=== PATIENT | female | born 1945 | race Hispanic/Latino ===

== ENCOUNTER 2017-02-27 06:34 | Day surgery (SDC) | payer MEDICARE ==
[2017-02-21 10:12] VITALS: BMI 33.6
--- NOTE | 2017-02-24 18:31 | HP ---
REASON FOR ADMISSION: Left heart cath, possible angioplasty, abnormal stress test. BRIEF CLINICAL HISTORY: This is a 71-year-old female with a past medical history significant for CVA , diabetes, on insulin; hypertension, hyperlipidemia, a family history of premature coronary artery d isease status post PTCA with drug-eluting stent of the circumflex on 03/31/2014, who had recently a s tress test abnormal, so patient is scheduled for elective cardiac cath and possible angioplasty. PAST MEDICAL HISTORY: Significant for diabetes, hypertension, hyperlipidemia, coronary artery diseas e status post a stent 03/31/2014 in circumflex. ALLERGIES: ALLERGY TO NAPROSYN. CURRENT MEDICATIONS: Atorvastatin 20 mg daily, atenolol 50 mg, aspirin 81 mg, Claritin 1 tablet ester y, lisinopril 10 mg, insulin 20 units daily, Keppra 500 mg daily, Trileptal ____ b.i.d. PREVIOUS CARDIAC WORKUP: As follows: The patient had a cardiac catheterization 03/31/2014 with sten t deployment to the circumflex. At that time, the cardiac catheterization revealed single-vessel cor onary artery disease involving the proximal circumflex 99%, preserved LV function, ejection fraction 60% to 65%. Elevated EDP in the range of 20-25. Successful PTCA with a drug-eluting stent Resolut was done and after that, medical treatment recommended. Aspirin and Plavix was recommended. Mos t recently, patient had a stress test on 02/06/2017 that shows probably abnormal SPECT myocardial per fusion study, reversible distal anteroseptal defect suspicious for ischemia. When compared with ____ from 04/23/2015, this finding is new. The patient had also echocardiography done on 02/08/2015 that s hows normal LV size, normal chamber size, no evidence of ____, ____, ejection fraction of 56%, diasto lic dysfunction, trace mitral regurgitation, trace tricuspid regurgitation. REVIEW OF SYSTEMS: A 14 point review of systems as per HPI. PHYSICAL EXAMINATION: As follows: VITAL SIGNS: Temperature afebrile, heart rate 80, blood pressure 130/80. HEENT: PERRLA, intact. NECK: Supple. No carotid bruits. No thyromegaly. CHEST: Clear to auscultation. HEART: S1, S2 regular. ABDOMEN: Soft. EXTREMITIES: Clubbing and cyanosis negative. Height of the patient is 5 feet 2 inches, weight of the patient is 184 pounds, body mass index 33.7 k g/meter squared. LABORATORY DATA: Pending. IMPRESSION: Diabetes, hypertension, hyperlipidemia, coronary artery disease, status post percutaneou s transluminal coronary angioplasty of circumflex proximal on 03/31/2014. Recent stress test 017 suspicious for ischemia, ejection fraction 58%. Echo shows ejection fraction 56%, normal chamber size, trace mitral regurgitation, trace regurgitation. RECOMMENDATION: We will load with Plavix, aspirin. We will follow the blood workup. Risks, benefit s, alternatives discussed with the patient. The patient agreed. We will proceed for cardiac cathete rization. Further recommendation after cardiac catheterization. Thank you, Dr. Kerr, for providing us the opportunity in taking care of the patient. Chris Luque MD cc:Leroy Burroughs MD; Chris Kerr MD 305 TT: 02/24/2017 18:31:01 sn
[2017-02-27 07:14] LABS: ADD MANUAL DIFF? NO
[2017-02-27 07:23] LABS: BASO # 0.02 K/mm3 (0.0-2.0); BASO % 0.2 % (0.0-3.0); EOS # 0.2 (0.0-0.7); EOS % 2.5 % (1.5-5.0); GRAN # 5.23 (1.4-6.5); GRAN % 56.9 % (50.0-68.0); HEMATOCRIT 36.2 % (36.0-48.0); LYMPH # 3.1 (1.2-3.4); LYMPH % 33.9 % (22.0-35.0); MEAN CELL VOLUME 88.1 fL (80.0-105.0); MEAN CORPUSCULAR HEMOGLOBIN 29.7 pg (25.0-35.0); MEAN CORPUSCULAR HGB CONC 33.7 g/dl (31.0-37.0); MEAN PLATELET VOLUME 9.7 fl (7.0-11.0); MONO # 0.6 (0.1-0.6); MONO % 6.5 % (1.0-6.0); PLATELET COUNT 254 10^3/uL (120.0-450.0); RED CELL DISTRIBUTION WIDTH 12.8 % (11.5-14.5); WHITE BLOOD COUNT 9.2 10^3/ul (4.5-11.0)
[2017-02-27 07:31] LABS: BLOOD UREA NITROGEN 14 mg/dL (7-21); CALCIUM 9.1 mg/dL (8.4-10.5); CARBON DIOXIDE 30 mmol/L (21-33); CHLORIDE 101 mmol/L (98-107); CHOLESTEROL 143 mg/dL (130-200); GFR AFRICAN-AMERICAN > 60; POTASSIUM 4.1 mmol/L (3.6-5.0); SODIUM 138 mmol/L (132-148)
[2017-02-27 07:34] LABS: INR 0.99 (0.93-1.08)
[2017-02-27 07:41] LABS: GLUCOSE,RANDOM 310 mg/dL (70-110)
[2017-02-27] MEDS ORDERED: Lidocaine 2% Inj (20ml) ONE (08:35)
[2017-02-27] MEDS ORDERED: Nitroglycerin 50mg in D5W 50 MG/250 ML BOTTLE IV ONE (08:37)
[2017-02-27] MEDS ORDERED: Midazolam 2 MG/2 ML VIAL ONE (08:47)
[2017-02-27] MEDS ORDERED: Iohexol 350mgl/ml 50 ML ONE (09:25)
[2017-02-27] MEDS ORDERED: Phenylephrine 10 mg/ml Inj ONE (09:25)
[2017-02-27] MEDS ORDERED: Iohexol 350 MG/100 ML VIAL ONE (09:25)
[2017-02-27] MEDS ORDERED: Eptifibatide 20 mg/10mL Inj IVP ONE (09:29)
[2017-02-27] MEDS ORDERED: Sodium Chloride 0.9% 1,000 ML IV SCH (10:15)
[2017-02-27 11:37] VITALS: O2SAT 96
[2017-02-27] MEDS: Insulin Reg-LOW-Coverage SC SCH ×2 (11:57→16:43)
[2017-02-27 12:23] VITALS: RESP 18; TEMP 98.1
[2017-02-27 13:03] LABS: ADD MANUAL DIFF? NO
[2017-02-27 13:11] LABS: BASO # 0.02 K/mm3 (0.0-2.0); BASO % 0.2 % (0.0-3.0); EOS # 0.2 (0.0-0.7); EOS % 1.5 % (1.5-5.0); GRAN % 57.8 % (50.0-68.0); HEMATOCRIT 36.6 % (36.0-48.0); LYMPH # 3.4 (1.2-3.4); LYMPH % 35.4 % (22.0-35.0); MEAN CORPUSCULAR HEMOGLOBIN 29.6 pg (25.0-35.0); MEAN CORPUSCULAR HGB CONC 32.5 g/dl (31.0-37.0); MEAN PLATELET VOLUME 10.1 fl (7.0-11.0); MONO # 0.5 (0.1-0.6); MONO % 5.1 % (1.0-6.0); PLATELET COUNT 250 10^3/uL (120.0-450.0); RED CELL DISTRIBUTION WIDTH 12.7 % (11.5-14.5); WHITE BLOOD COUNT 9.7 10^3/ul (4.5-11.0)
[2017-02-27 13:15] LABS: BLOOD UREA NITROGEN 14 mg/dL (7-21); CALCIUM 8.7 mg/dL (8.4-10.5); CARBON DIOXIDE 29 mmol/L (21-33); CHLORIDE 102 mmol/L (95-110); GFR AFRICAN-AMERICAN > 60; GLUCOSE,RANDOM 280 mg/dL (70-110); SODIUM 135 mmol/L (132-148)
[2017-02-27 13:16] LABS: POTASSIUM 4.7 mmol/L (3.6-5.0)
[2017-02-27 14:30] VITALS: BP 146/76; PULSE 70
[2017-02-27] MEDS ORDERED: Bacitracin 500 Units/gm Oint Foilpak UD ONE (15:13)
--- NOTE | 2017-02-27 15:20 | CARD ---
APPROVED REPORT EKG Measurement Heart [id number] CO [id number] <Conclusion> Normal sinus rhythm with 1st degree AVB Left axis deviation PRWP V 1 - 6
--- NOTE | 2017-02-27 17:57 | CARD ---
APPROVED REPORT Procedure(s) performed: Left Heart Catheterization PTCA with Stenting of Proximal to Mid Circumflex. HISTORY The patient is a 71 year-old female with a history of : most recent EF: 58%. (EF Method: RADIONUCLIDE), previous CVA remote >= 2 weeks, peripheral vascular disease, diabetes mellitus with insulin treatment , previous diagnostic cath, previous PCI (The PCI date was 03/31/2014), hypertension , dyslipidemia , cerebrovascular disease , Had an Abnormal stress test.. INDICATION The indication(s) include : positive stress test. CASE TECHNIQUE The patient was brought electively to the Cardiac Catheterization Laboratory in a fasting state and was prepped and draped in a sterile manner. The left wrist was infiltrated with 2% Lidocaine subcutaneous anesthesia. A 6 Fr Glidesheath (Radial) sheath was inserted into the left radial artery without difficulty. Coronary angiography was performed using coronary diagnostic catheters. The left coronary system was accessed and visualized with a Diagnostic ,5 Fr JL 3.5 catheter. The right coronary system was accessed and visualized with a Diagnostic ,5 Fr JR 4 catheter. The left ventricle was accessed and visualized with a 5 Fr Pigtail 145 (Angled) catheter. Left ventricular/Aortic Valve gradient assessed on pullback. Left ventriculogram was performed in PARK projection. The patient tolerated the procedure well and there were no complications associated with the procedure. Vessel Analysis The patient's coronary anatomy is right dominant. The left main coronary artery is a large size vessel with diffuse calcification noted throughout this vessel and without significant stenosis. The left main bifurcates to the left anterior descending and circumflex. The left anterior descending artery is a medium size vessel with diffuse calcification noted throughout this vessel and without significant stenosis. There is a 30-40% stenosis in the mid segment. The first diagonal branch is a small size vessel with diffuse calcification noted throughout this vessel and without significant stenosis. The circumflex artery is a medium size vessel with diffuse calcification noted throughout this vessel and with significant stenosis. There is a 90% stenosis in the proximal segment. Has stent, proximal end of stent has 90 % stenosis and distal to Stent 80% stenosis The first obtuse marginal branch is a medium size vessel with intimal irregularities and without significant stenosis. The right coronary artery is a large size vessel with intimal irregularities and without significant stenosis. The right posterior descending artery is a medium size vessel with diffuse calcification noted throughout this vessel and without significant stenosis. Left Ventricle The left ventricle is normal in size with normal contractility. There was no cardiomyopathy. The left ventricular ejection fraction is estimated to be 55-60%. The left ventricular end diastolic pressure is 15 mmHg. There was no gradient across the aortic valve upon pullback. PCI Technique Lesion Anticoagulation was achieved with Heparin. Percutaneous coronary intervention was performed on the mid circumflex artery segment. The lesion stenosis prior to intervention was 80% with CLARI 2 flow. A 6 Fr XB 3 Guide Catheter was used to engage the ostium. BALLOON DILATION A Balloon catheter 2.5 x 15 mm Sprinter RX was inserted and inflated up to 8.00atm for 14seconds. STENT DEPLOYMENT A drug-eluting stent 3.0 x 38 mm Resolute ELENA was inserted and inflated up to 10.00atm for 26seconds. POST STENT DEPLOYMENT BALLOON DILATION A Balloon catheter 3.25 x 21 mm Sprinter NC was inserted and inflated up to 10.00atm for 26seconds. COMMENTS Single Long stent 3.0/34 used to cover proximal and Mid Cx. PCI Technique Lesion 2 Percutaneous Coronary Intervention was performed on the proximal circumflex artery segment. The lesion stenosis prior to intervention was 90% with CLARI 2 flow. A 6 Fr XB 3 Guide Catheter was used to engage the ostium. BALLOON DILATION A Balloon catheter 2.5 x 15 mm Sprinter RX was inserted and inflated up to 10.00atm for 32seconds. STENT DEPLOYMENT A drug-eluting stent 3.0 x 38 mm Resolute ELENA was inserted and inflated up to 10.00atm for 32seconds. POST STENT DEPLOYMENT BALLOON DILATION A Balloon catheter 3.25 x 21 mm Sprinter NC was inserted and inflated up to 14.00atm for 20seconds. Final angiography reveals 0 % stenosis with CLARI 3 flow. Conclusion Silgle vesel CAD involving Proximal and Mid CX (cy stent InStent Restenosis) Silgle Long Stent 3.0/34 Resolute Elena used to cover proximal and Mid Cx. Preserved Lv FX. Recommendations Cardiac Rehabilitation ReferralDaily ASA with Plavix for at least one year Aggressive Medical TherapyCardiac Risk Reduction Program Weight Loss Reduction Program CC; Drs. Burroughs/ Cirilo.
== END 2017-02-27 17:12 | disposition home or self-care (01) ==
LOC: CATH 06:34 → 2RSO 10:14 → CATH 17:12
PROVIDERS: ATTEND Internal Medicine Cardiovascular Disease
DX: I25.10 Atherosclerotic heart disease of native coronary artery without angina pectoris (principal); R94.39 Abnormal result of other cardiovascular function study; Z86.73 Personal history of transient ischemic attack (TIA), and cerebral infarction without residual deficits; E11.9 Type 2 diabetes mellitus without complications; Z79.4 Long term (current) use of insulin; I10 Essential (primary) hypertension; E78.5 Hyperlipidemia, unspecified; Z82.49 Family history of ischemic heart disease and other diseases of the circulatory system; Z95.5 Presence of coronary angioplasty implant and graft; I73.9 Peripheral vascular disease, unspecified; Z79.82 Long term (current) use of aspirin; Z88.6 Allergy status to analgesic agent; I08.1 Rheumatic disorders of both mitral and tricuspid valves; T82.858A Stenosis of other vascular prosthetic devices, implants and grafts, initial encounter
CPT/HCPCS: 36415; 80048; 80061; 82948; 85025; 85175; 85610; 85730; 86850; 86900; 93005; 93458; 99152; 99153; C1725; C1769 ×2; C1874; C1887 ×3; C9600; J1327; J1644 ×2; J2250; J3010; J7040 ×2; Q9967 ×2

== ENCOUNTER 2018-02-12 11:03 | Emergency (ER) | payer MEDICARE ==
[2018-02-12 11:13] VITALS: BMI 35.9
--- NOTE | 2018-02-12 11:31 | ED PDOC ---
Arrival/HPI - General Chief Complaint: Trauma Time Seen by Provider: 02/12/18 11:29 Historian: Patient - History of Present Illness Narrative History of Present Illness (Text): 02/12/18 11:30 A 72 year old female, whose past medical history includes hypertension, diabetes , hyperlipidemia, presents to the emergency department via EMS s/p slip and fall while taking a shower today. The patient states that she did not syncopize pre/post fall. She notes that she is right hand dominant, but landed on her left side and is currently complaining of mild left elbow and hip pain. She ranks the pain a 1-2 out of 10. The patient notes that she was able to ambulate after the fall and slowly get out of the bathroom and ask for help upon which the ambulance arrived and brought her into the emergency department. She denies fevers, chills, LOC, seizure, headache, dizziness, palpitations, chest pain, shortness of breath, dyspnea on exertion, cough, abdominal pain, nausea, vomiting, diarrhea, back pain, neck pain, urinary/bowel changes/incontinence, numbness/tingling,or any other complaint. PMD: Dr. Burroughs Bell Captain: Dr. Luque Driver Helper: ADELE Webber Time/Duration: Prior to Arrival Symptom Onset: Sudden Symptom Course: Unchanged Activities at Onset: Rest, Light Context: Home Past Medical History - Provider Review Nursing Documentation Reviewed: Yes - Travel History Have you recently traveled outside [place] w/in the past 3 mons?: No - Past History Past History: No Previous - Infectious Disease Hx of Infectious Diseases: None - Tetanus Immunization Tetanus Immunization: Unknown - Reproductive Menopause: Yes Currently : No - Cardiac Hx Pacemaker: No - Neurological Hx Paralysis: No - Endocrine/Metabolic Hx Diabetes Mellitus Type 1: Yes - Hematological/Oncological Hx Blood Transfusions: No - Musculoskeletal/Rheumatological Hx Musculoskeletal Disorders: Yes - Gastrointestinal Hx Gastrointestinal Disorders: No - Genitourinary/Gynecological Hx Genitourinary Disorders: No Hx Reproductive Disorders: No - Psychiatric Hx Emotional Abuse: No Hx Physical Abuse: No Hx Substance Use: No - Surgical History Hx Coronary Stent: Yes (03/2014) Hx Hysterectomy: Yes - Anesthesia Hx Anesthesia Reactions: No Hx Malignant Hyperthermia: No - Suicidal Assessment Feels Threatened In Home Enviroment: No Family/Social History - Physician Review Nursing Documentation Reviewed: Yes Family/Social History: No Known Family HX Smoking Status: Never Smoked Hx Alcohol Use: No Hx Substance Use: No Hx Substance Use Treatment: No Allergies/Home Meds Allergies/Adverse Reactions: Allergies naproxen [From Naprosyn] Allergy (Severe, Verified 02/12/18 11:15) RASH divalproex sodium [From Depakote] Adverse Reaction (Severe, Verified 02/12/18 11 :15) BACTERIAL INFECTION Home Medications: Home Meds Medication Instructions Recorded Confirmed Atenolol 50 mg PO DAILY 02/04/13 02/27/17 Insulin Detemir [Levemir] 50 unit SC HS 02/04/13 02/27/17 Atorvastatin [Lipitor] 20 mg PO DAILY 03/17/14 02/27/17 Aspirin [Lo-Dose Aspirin EC] 81 mg PO DAILY 02/06/17 02/27/17 Cholecalciferol (Vitamin D3) 1,000 unit PO BID 02/06/17 02/27/17 [Vitamin D3] Insulin Lispro Mix 75/25 [HumaLog 20 units SC ACBD 02/06/17 02/27/17 MIX 75/25] Lisinopril [Zestril] 10 mg PO DAILY 02/06/17 02/27/17 Loratadine/Pseudoephedrine 1 tab PO DAILY 02/06/17 02/27/17 [Claritin-D 24 Hour Tablet] Multivit-Min/FA/Lycopen/Lutein 1 tab PO DAILY 02/06/17 02/27/17 [Centrum Silver Tablet] OXcarbazepine [Trileptal] 900 mg PO BID 02/06/17 02/27/17 Huntington-3 Fatty Acids [Fish Oil] 300 mg PO BID 02/06/17 02/27/17 levETIRAcetam [Keppra] 500 mg PO BID 02/06/17 02/27/17 Review of Systems - Physician Review All systems were reviewed & negative as marked: Yes - Review of Systems Constitutional: absent: Fevers, Night Sweats Eyes: Normal ENT: Normal Respiratory: absent: SOB, Cough Cardiovascular: absent: Chest Pain, SMILEY Gastrointestinal: absent: Abdominal Pain, Stool Changes, Diarrhea, Nausea, Vomiting Genitourinary Female: Normal. absent: Urine Output Changes Musculoskeletal: Other (Left elbow and hip pain. ). absent: Back Pain, Neck Pain Skin: absent: Rash Neurological: absent: Headache, Dizziness Endocrine: Normal Hemo/Lymphatic: Normal Psychiatric: Normal Physical Exam - Physical Exam Narrative Physical Exam (Text): 02/12/18 11:32 General: alert/awake, GCS = 15, oriented x 3, resting in bed, uncomfortable, cooperative, interactive; NAD Head: NC/AT; mild bi-temporal wasting EYE: PERRLA, EOMI, sclera anicteric, no nystagmus, no photophobia; wearing eye glasses; visual field intact b/l Facial: WNL Oral: uvula/tongue are midline, no exudate/lesions, no drooling/stridor, no dysphonia; intact dentitions NECK: intact ROM, no midline tenderness, no nuchal rigidity, no meningeal signs ; no step off; no step off Chest: CTA b/l, no w/r/r; no tachypenia, no accessory muscle use noted Cardiac: +S1, +S2, no m/r/r, no tachycardia Abdominal: +BS, soft/nd/nt, well nourished patient; no masses/rebound/guarding/ rigidity; no alvarez's sign, no mcburney's point tenderness Extremities: intact ROM, strength 5/5 grossly intact in all limbs, neurovasc intact b/l; + ambulatory; reflex +2/2; noted mild tenderness over left posterior aspect of the elbow, and left pelvic region mild tenderness, no crepitus/gross deformities noted BACK: no step off, no midline tenderness, NO crepitus, no gross deformities noted; Intact ROM SKIN: cap refill < 1 sec, no ulcerations, no petechiae, no rashes NEURO: CNII-XII WNL, no facial asymmetries, no slurr speech, oriented x 3 NIH stroke scale ~ 0 Psych: normal insight, normal affect; follows command with ease Vital Signs Reviewed: Yes Vital Signs Temp Pulse Resp BP Pulse Ox 02/12/18 11:11 98.1 F 88 18 153/87 H 98 Temperature: Afebrile Blood Pressure: Hypertensive Pulse: Regular Respiratory Rate: Normal Appearance: Positive for: Well-Appearing, Non-Toxic, Uncomfortable Pain Distress: None Mental Status: Positive for: Alert and Oriented X 3 - Systems Exam Head: Present: Atraumatic, Normocephalic Medical Decision Making ED Course and Treatment: 02/12/18 11:43 Impression: A 72 year old female presents to the emergency department complaining of left elbow and hip pain s/p slip and fall. i have consider all the differential diagnosis regarding pt's chief medical complaints/clinical findings, including but are not limited to: r/o fx Plan: -- EKG -- Chest/ Left Hip / Left Elbow X-ray -- Labs -- Reassess and disposition Progress Notes: pt is currently comfortable, awaiting diagnostic results 02/12/18 13:30 pt is made aware of her medical results due to pt's low h/h, without cause, i recommend that patient should stay in the hospital 02/12/18 14:38: Case discussed in detail with Dr. Burroughs. Made aware and agrees with emergency department recommendation for patient to remain in hospital but is made aware that patient may leave against medical advice. 02/12/18 15:25 discussed with patient at length regarding admission to the hospital, pt however refused; pt states she would rather f/u with her PCP Leaving Against Medical Advice (AMA): The patient is choosing to leave against medical advice. I have personally explained to the patient that choosing to do so may result in permanent bodily harm or . I have discussed at great length that without further evaluation and monitoring there may be unforeseen circumstances and/or deterioration causing permanent bodily harm or as a result of their choice. The patient is alert, oriented, and shows the mental capacity to make clear decisions regarding the patients health care at this time. The patient continues to wish to leave against medical advice. In light of the patients decision to leave against medical advice, follow-up has been arranged and the patient is aware of the importance to following up as instructed. The patient has been advised that they should return to the emergency room immediately if they change their mind at any time, or if their condition begins to change or worsen in any way. pt is made aware of her medical results pt will f/u with her PCP immediately pt is leaving the hospital currently against my advice Re-evaluation Time: 15:00 Reassessment Condition: Improved - Lab Interpretations Lab Results: 02/12/18 12:15 02/12/18 12:15 Lab Results 02/12/18 12:15: Sodium 136, Potassium 4.8, Chloride 99, Carbon Dioxide 26, Anion Gap 16, BUN 12, Creatinine 0.5 L, Est GFR ( Amer) > 60, Est GFR ( Non-Af Amer) > 60, Random Glucose 185 H, Calcium 8.7, Total Bilirubin 0.1 L, AST 30, ALT 32, Alkaline Phosphatase 126, Total Protein 7.2, Albumin 3.7, Globulin 3.5, Albumin/Globulin Ratio 1.1 02/12/18 12:15: WBC 11.1 H D, RBC 3.73, Hgb 8.6 L D, Hct 28.5 L, MCV 76.4 L D, MCH 23.1 L, MCHC 30.2 L, RDW 15.2 H, Plt Count 374, MPV 9.0, Gran % 68.9 H, Lymph % (Auto) 24.6, Shannon % (Auto) 5.1, Eos % (Auto) 1.3 L, Baso % (Auto) 0.1, Gran # 7.63 H, Lymph # (Auto) 2.7, Shannon # (Auto) 0.6, Eos # (Auto) 0.1, Baso # ( Auto) 0.01 I have reviewed the lab results: Yes Interpretation: Abnormal lab values (low h/h) - RAD Interpretation Narrative RAD Interpretations (Text): 02/12/18 13:44 PROCEDURE: Radiographs of the left elbow. Dictator : Faisal Santillan MD Report Date : 02/12/2018 13:36:27 IMPRESSION: Unremarkable radiographs of the left elbow. PROCEDURE: Left Hip and pelvis X-ray Radiographs. Dictator : Faisal Santillan MD Report Date : 02/12/2018 13:37:41 IMPRESSION: Normal left hip radiographs. Chest X-ray Dictator : Faisal Santillan MD Report Date : 02/12/2018 13:35:21 IMPRESSION: No active disease. 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 I have reviewed the chart and agree that the record accurately reflects my personal performance of the history, physical exam, medical decision making, and the department course for this patient. I have also personally directed, reviewed, and agree with the discharge instructions and disposition. Disposition/Present on Arrival - Present on Arrival Any Indicators Present on Arrival: No History of DVT/PE: No History of Uncontrolled Diabetes: No Urinary Catheter: No History of Decub. Ulcer: No History Surgical Site Infection Following: None - Disposition Have Diagnosis and Disposition been Completed?: Yes Diagnosis: Fall, Anemia, Contusion, hip, Elbow contusion Disposition: AGAINST MEDICAL ADVICE Disposition Time: 15:04 Patient Problems: Current Active Problems Problem Status Onset Fall Acute Anemia Acute Condition: STABLE Discharge Instructions (ExitCare): Preventing Falls in the Older Adult, Contusion (DC) Print Language: BARBADIAN Additional Instructions: you are leaving against medical advice potential life-threatening illness remains and pt can lose limb/or worse case, can you are to see your doctor as soon as possible if you change your mind, you are encouraged to return to ED immediately for further care/management Referrals: Leroy Burroughs MD [Primary Care Provider] - Follow up with primary Forms: [facility] (Guatemalan)
[2018-02-12 12:52] LABS: RBC 3.73 10^6/uL (3.5-6.1); WHITE BLOOD COUNT 11.1 10^3/ul (4.5-11.0)
[2018-02-12 12:53] LABS: HEMOGLOBIN 8.6 g/dL (12.0-16.0); MEAN CELL VOLUME 76.4 fl (80.0-105.0)
[2018-02-12 12:54] LABS: BASO % 0.1 % (0.0-3.0); EOS % 1.3 % (1.5-5.0); GRAN # 7.63 (1.4-6.5); GRAN % 68.9 % (50.0-68.0); LYMPH % 24.6 % (22.0-35.0); MEAN CORPUSCULAR HEMOGLOBIN 23.1 pg (25.0-35.0); MEAN CORPUSCULAR HGB CONC 30.2 g/dl (31.0-37.0); MONO % 5.1 % (1.0-6.0); RED CELL DISTRIBUTION WIDTH 15.2 % (11.5-14.5)
[2018-02-12 12:55] LABS: BASO # 0.01 K/mm3 (0.0-2.0); EOS # 0.1 (0.0-0.7); LYMPH # 2.7 (1.2-3.4); MONO # 0.6 (0.1-0.6)
--- NOTE | 2018-02-12 13:36 | RAD ---
HISTORY: fell in bathtube COMPARISON: 03/17/2014 TECHNIQUE: Chest PA and lateral FINDINGS: LUNGS: No active pulmonary disease. PLEURA: No significant pleural effusion identified. No pneumothorax apparent. CARDIOVASCULAR: Normal. OSSEOUS STRUCTURES: No significant abnormalities. VISUALIZED UPPER ABDOMEN: Normal. OTHER FINDINGS: None. IMPRESSION: No active disease.
--- NOTE | 2018-02-12 13:37 | RAD ---
PROCEDURE: Radiographs of the left elbow. HISTORY: fell COMPARISON: No prior. FINDINGS: BONES: Normal. No fracture. JOINTS: Normal. No osteoarthritis. SOFT TISSUES: Normal. JOINT EFFUSION: None. OTHER FINDINGS: None IMPRESSION: Unremarkable radiographs of the left elbow.
--- NOTE | 2018-02-12 13:39 | RAD ---
PROCEDURE: Left Hip and pelvis X-ray Radiographs. HISTORY: fell in bathtub, r/o fx COMPARISON: None. FINDINGS: BONES: Normal. No fracture. JOINTS: Normal. SOFT TISSUES: Normal. OTHER FINDINGS: None. IMPRESSION: Normal left hip radiographs.
[2018-02-12 15:17] VITALS: TEMP 98
[2018-02-12 15:18] VITALS: BP 138/83; PULSE 85; RESP 18; O2SAT 99
[2018-02-12 16:28] LABS: ALB/GLOB RATIO 1.1 (1.1-1.8); ALBUMIN 3.7 g/dL (3.0-4.8); ALT/SGPT 32 U/L (7-56); AST/SGOT 30 U/L (14-36); BLOOD UREA NITROGEN 12 mg/dL (7-21); CALCIUM 8.7 mg/dL (8.4-10.5); GFR AFRICAN-AMERICAN > 60; GFR NON-AFRICAN AMERICAN > 60
--- NOTE | 2018-02-12 18:22 | CARD ---
APPROVED REPORT EKG Measurement Heart [id number] MS [id number] <Conclusion> Sinus rhythm with 1st degree AV block Left axis deviation Abnormal ECG
== END 2018-02-12 15:19 | disposition left against medical advice (07) ==
LOC: ED 11:03
DX: S50.02XA Contusion of left elbow, initial encounter (principal); S70.02XA Contusion of left hip, initial encounter; W18.2XXA Fall in (into) shower or empty bathtub, initial encounter; Y93.E1 Activity, personal bathing and showering; Y92.002 Bathroom of unspecified non-institutional (private) residence as the place of occurrence of the external cause; D64.9 Anemia, unspecified; I10 Essential (primary) hypertension; E78.5 Hyperlipidemia, unspecified

== ENCOUNTER 2018-03-13 13:52 | Observation (INO) | payer MEDICARE ==
[2018-03-13 14:05] VITALS: O2SAT 98
--- NOTE | 2018-03-13 14:31 | RAD ---
HISTORY: rout med exam COMPARISON: 02/12/2018 FINDINGS: LUNGS: No active pulmonary disease. PLEURA: No significant pleural effusion identified, no pneumothorax apparent. CARDIOVASCULAR: Normal. OSSEOUS STRUCTURES: No significant abnormalities. VISUALIZED UPPER ABDOMEN: Normal. OTHER FINDINGS: None. IMPRESSION: No active disease.
[2018-03-13] MEDS ORDERED: Lactated Ringer's 1,000 ML IV SCH (15:00)
--- NOTE | 2018-03-13 15:23 | ED PDOC ---
Arrival/HPI - General Chief Complaint: Dizziness/Lightheaded Time Seen by Provider: 03/13/18 14:03 Historian: Patient - History of Present Illness Narrative History of Present Illness (Text): 03/13/18 15:07 A 72 year old female, whose past medical history includes diabetes, hypertension , hyperlipidemia, anemia on iron transfusions (last session received yesterday) , and peripheral vertigo, presents to the emergency department complaining of dizziness for 2 days. Patient characterizes symptom as disequilibrium and vertigo. Also, patient mentions having recently fallen in the shower within the past 24 hours, however denies any head trauma, and landed on left knee. Patient denies any fever, chills, nausea, vomiting, diarrhea, infected foci, chest pain , palpitations, dyspnea on exertion, or any other complaints at this time. No PMD Time/Duration: Other (2 days) Past Medical History - Provider Review Nursing Documentation Reviewed: Yes - Past History Past History: No Previous - Infectious Disease Hx of Infectious Diseases: None - Tetanus Immunization Tetanus Immunization: Unknown - Cardiac Hx Cardiac Disorders: Yes Hx Pacemaker: No - Pulmonary Hx Respiratory Disorders: No - Neurological Hx Neurological Disorder: Yes Hx Paralysis: No Hx Seizures: Yes Hx Vertigo: Yes - HEENT Hx HEENT Disorder: No - Renal Hx Renal Disorder: No - Endocrine/Metabolic Hx Endocrine Disorders: Yes Hx Diabetes Mellitus Type 1: Yes - Hematological/Oncological Hx Blood Disorders: No Hx Blood Transfusions: No - Integumentary Hx Dermatological Disorder: No - Musculoskeletal/Rheumatological Hx Musculoskeletal Disorders: Yes - Gastrointestinal Hx Gastrointestinal Disorders: No - Genitourinary/Gynecological Hx Genitourinary Disorders: No Hx Reproductive Disorders: No - Psychiatric Hx Emotional Abuse: No Hx Physical Abuse: No Hx Substance Use: No - Surgical History Hx Cardiac Catheterization: Yes Hx Coronary Stent: Yes (03/2014) Hx Hysterectomy: Yes (partial) Hx Tubal Ligation: Yes - Anesthesia Hx Anesthesia Reactions: No Hx Malignant Hyperthermia: No - Suicidal Assessment Feels Threatened In Home Enviroment: No Family/Social History - Physician Review Nursing Documentation Reviewed: Yes Family/Social History: No Known Family HX Smoking Status: Never Smoked Hx Alcohol Use: No Hx Substance Use: No Hx Substance Use Treatment: No Allergies/Home Meds Allergies/Adverse Reactions: Allergies naproxen [From Naprosyn] Allergy (Severe, Verified 03/13/18 14:18) RASH divalproex sodium [From Depakote] Adverse Reaction (Severe, Verified 03/13/18 14 :18) BACTERIAL INFECTION Home Medications: Home Meds Medication Instructions Recorded Confirmed Atenolol 50 mg PO DAILY 02/04/13 03/13/18 Insulin Detemir [Levemir] 50 unit SC HS 02/04/13 03/13/18 Atorvastatin [Lipitor] 20 mg PO DAILY 03/17/14 03/13/18 Aspirin [Lo-Dose Aspirin EC] 81 mg PO DAILY 02/06/17 03/13/18 Cholecalciferol (Vitamin D3) 1,000 unit PO BID 02/06/17 03/13/18 [Vitamin D3] Insulin Lispro Mix 75/25 [HumaLog 20 units SC ACBD 02/06/17 03/13/18 MIX 75/25] Lisinopril [Zestril] 10 mg PO DAILY 02/06/17 03/13/18 Loratadine/Pseudoephedrine 1 tab PO DAILY 02/06/17 03/13/18 [Claritin-D 24 Hour Tablet] Multivit-Min/FA/Lycopen/Lutein 1 tab PO DAILY 02/06/17 03/13/18 [Centrum Silver Tablet] OXcarbazepine [Trileptal] 900 mg PO BID 02/06/17 03/13/18 Westwood-3 Fatty Acids [Fish Oil] 300 mg PO BID 02/06/17 03/13/18 levETIRAcetam [Keppra] 500 mg PO BID 02/06/17 03/13/18 Review of Systems - Physician Review All systems were reviewed & negative as marked: Yes - Review of Systems Constitutional: absent: Fevers, Night Sweats Cardiovascular: absent: Chest Pain, Palpitations Gastrointestinal: absent: Stool Changes (no infected foci), Diarrhea, Nausea, Vomiting Neurological: Dizziness Physical Exam Vital Signs Reviewed: Yes Vital Signs Temp Pulse Resp BP Pulse Ox 03/13/18 18:56 85 18 163/86 H 98 03/13/18 15:40 79 18 138/74 98 03/13/18 14:02 98.2 F 81 18 140/77 98 Temperature: Afebrile Blood Pressure: Normal Pulse: Regular Respiratory Rate: Normal Appearance: Positive for: Well-Appearing, Non-Toxic, Comfortable Pain Distress: None Mental Status: Positive for: Alert and Oriented X 3 - Systems Exam Head: Present: Atraumatic, Normocephalic Pupils: Present: PERRL Extroacular Muscles: Present: EOMI Conjunctiva: Present: Normal Mouth: Present: Moist Mucous Membranes Neck: Present: Normal Range of Motion Respiratory/Chest: Present: Clear to Auscultation, Good Air Exchange. No: Respiratory Distress, Accessory Muscle Use Cardiovascular: Present: Regular Rate and Rhythm, Normal S1, S2. No: Murmurs Abdomen: No: Tenderness, Distention, Peritoneal Signs Back: Present: Normal Inspection Upper Extremity: Present: Normal Inspection. No: Cyanosis, Edema Lower Extremity: Present: Tenderness (anterior tenderness to left knee) Neurological: Present: GCS=15, CN II-XII Intact, Speech Normal Skin: Present: Warm, Dry, Normal Color. No: Rashes Psychiatric: Present: Alert, Oriented x 3, Normal Insight, Normal Concentration Medical Decision Making ED Course and Treatment: 03/13/18 15:10 Impression: 72 year old female with dizziness. Physical exam shows anterior left knee tenderness (due to fall within the past 24 hrs); otherwise normal examination. Plan: -- EKG -- Left Knee X-Ray -- Head CT -- Labs -- Urinalysis -- Lactated Ringer's 1000 ml -- Antivert -- Urine Culture -- Reassess and disposition Progress Notes: EKG: Ordered, reviewed, and independently interpreted the EKG. Rate : 80 BPM Rhythm : NSR Interpretation : 1st degree AB block, no ischemic ST- and T- changes. Comparison : No previous EKG for comparison. - Lab Interpretations Lab Results: 03/13/18 16:05 03/13/18 16:05 Lab Results 03/13/18 17:44: Urine Color Yellow, Urine Appearance Clear, Urine pH 7.5, Ur Specific [place] 1.010, Urine Protein Negative, Urine Glucose (UA) Negative, Urine Ketones Negative, Urine Blood Negative, Urine Nitrate Negative, Urine Bilirubin Negative, Urine Urobilinogen 0.2, Ur Leukocyte Esterase Negative 03/13/18 16:05: PT 11.9, INR 1.04, APTT 31.1 03/13/18 16:05: Sodium 129 L, Potassium 4.7, Chloride 93 L, Carbon Dioxide 28, Anion Gap 13, BUN 10, Creatinine 0.4 L, Est GFR ( Amer) > 60, Est GFR ( Non-Af Amer) > 60, Random Glucose 99, Calcium 9.2, Magnesium 2.0, Total Bilirubin 0.5, AST 52 H D, ALT 35, Alkaline Phosphatase 110, Lactate Dehydrogenase 526, Total Creatine Kinase 22 L, Troponin I < 0.01, NT-Pro-B Natriuret Pep 25.9, Total Protein 8.1, Albumin 4.1, Globulin 4.0, Albumin/ Globulin Ratio 1.0 L 03/13/18 16:05: WBC 11.7 H, RBC 4.12, Hgb 9.6 L, Hct 30.4 L, MCV 73.8 L, MCH 23.3 L, MCHC 31.6, RDW 16.6 H, Plt Count 475 H, MPV 8.6, Gran % 64.7, Lymph % ( Auto) 26.4, Randolph % (Auto) 6.5 H, Eos % (Auto) 2.2, Baso % (Auto) 0.2, Gran # 7.53 H, Lymph # (Auto) 3.1, Randolph # (Auto) 0.8 H, Eos # (Auto) 0.3, Baso # (Auto ) 0.02 - RAD Interpretation Radiology Orders: 03/13/18 14:05 CHEST PORTABLE [RAD] Stat 03/13/18 15:10 HEAD W/O CONTRAST [CT] Stat 03/13/18 15:11 KNEE LEFT 2 VIEWS (AP & LAT) [RAD] Stat - Medication Orders Current Medication Orders: Aspirin (Ecotrin) 81 mg PO DAILY [facility] Atenolol (Tenormin) 50 mg PO DAILY [facility] Atorvastatin Calcium (Lipitor) 20 mg PO DAILY [facility] Clopidogrel Bisulfate (Plavix) 75 mg PO DAILY [facility] Insulin Human Lispro (Humalog Low) 0 units SC ACHS [facility] PRN Reason: Protocol Levetiracetam (Keppra) 500 mg PO BID [facility] Lisinopril (Zestril) 10 mg PO DAILY [facility] Meclizine HCl (Antivert) 25 mg PO Q8H PRN PRN Reason: Dizziness Non-Formulary Medication (Cholecalciferol (Vitamin D3) [Vitamin D3]) 1,000 unit PO BID [facility] Non-Formulary Medication (Multivit-Min/Fa/Lycopen/Lutein [Centrum Silver Tablet] ) 1 tab PO DAILY [facility] Non-Formulary Medication (Westwood-3 Fatty Acids [Fish Oil]) 300 mg PO BID [facility] Non-Formulary Medication (Oxcarbazepine [Trileptal]) 900 mg PO BID [facility] Discontinued Medications Lactated Ringer's (Lactated Ringer's) 1,000 mls @ 999 mls/hr IV .Q1H1M [facility] Stop: 03/13/18 16:00 Last Admin: 03/13/18 15:42 Dose: 999 mls/hr eMAR Start Stop Document 03/13/18 15:42 LA (Rec: 03/13/18 15:42 LA [id number]) Intravenous Solution Start Date 03/13/18 Start Time 15:42 End Date 03/13/18 End time 16:43 Total Infusion Time 61 Meclizine HCl (Antivert) 50 mg PO STAT STA Stop: 03/13/18 14:53 Last Admin: 03/13/18 15:23 Dose: 50 mg - Scribe Statement The provider has reviewed the documentation as recorded by the Ashley Burks Provider Scribe Attestation: All medical record entries made by the Ashley were at my direction and personally dictated by me. I have reviewed the chart and agree that the record accurately reflects my personal performance of the history, physical exam, medical decision making, and the department course for this patient. I have also personally directed, reviewed, and agree with the discharge instructions and disposition. Disposition/Present on Arrival - Present on Arrival Any Indicators Present on Arrival: Yes History of DVT/PE: No History of Uncontrolled Diabetes: Yes Urinary Catheter: No History of Decub. Ulcer: No History Surgical Site Infection Following: None - Disposition Have Diagnosis and Disposition been Completed?: Yes Diagnosis: Vertigo, Dizziness Disposition: HOSPITALIZED Disposition Time: 19:00 Patient Plan: Admission, Discharge Condition: FAIR
[2018-03-13 16:09] LABS: BASO # 0.02 K/mm3 (0.0-2.0); BASO % 0.2 % (0.0-3.0); EOS # 0.3 (0.0-0.7); EOS % 2.2 % (1.5-5.0); GRAN # 7.53 (1.4-6.5); GRAN % 64.7 % (50.0-68.0); HEMOGLOBIN 9.6 g/dL (12.0-16.0); LYMPH # 3.1 (1.2-3.4); LYMPH % 26.4 % (22.0-35.0); MEAN CELL VOLUME 73.8 fl (80.0-105.0); MEAN CORPUSCULAR HEMOGLOBIN 23.3 pg (25.0-35.0); MEAN CORPUSCULAR HGB CONC 31.6 g/dl (31.0-37.0); MEAN PLATELET VOLUME 8.6 fl (7.0-11.0); MONO # 0.8 (0.1-0.6); MONO % 6.5 % (1.0-6.0); RBC 4.12 10^6/uL (3.5-6.1); RED CELL DISTRIBUTION WIDTH 16.6 % (11.5-14.5); WHITE BLOOD COUNT 11.7 10^3/ul (4.5-11.0)
[2018-03-13 16:27] LABS: ALBUMIN 4.1 g/dL (3.0-4.8); ALT/SGPT 35 U/L (7-56); AST/SGOT 52 U/L (14-36); BLOOD UREA NITROGEN 10 mg/dL (7-21); CALCIUM 9.2 mg/dL (8.4-10.5); GFR AFRICAN-AMERICAN > 60; GFR NON-AFRICAN AMERICAN > 60
[2018-03-13 16:31] LABS: B-TYPE NATRIURETIC PEPTIDE 25.9 pg/mL (0-450); TROPONIN I < 0.01 ng/mL
[2018-03-13 16:38] LABS: INR 1.04 (0.93-1.08); PARTIAL THROMBOPLASTIN TIME 31.1 Seconds (25.1-36.5); PROTHROMBIN TIME 11.9 SECONDS (9.4-12.5)
--- NOTE | 2018-03-13 17:08 | CT ---
PROCEDURE: CT HEAD WITHOUT CONTRAST. HISTORY: dizziness COMPARISON: 02/04/2013 TECHNIQUE: Axial computed tomography images were obtained through the head/brain without intravenous contrast. Coronal and sagittal reconstructed images. Radiation dose: Total exam DLP = 855.03 mGy-cm. This CT exam was performed using one or more of the following dose reduction techniques: Automated exposure control, adjustment of the mA and/or kV according to patient size, and/or use of iterative reconstruction technique. FINDINGS: HEMORRHAGE: No intracranial hemorrhage. BRAIN: No mass effect or edema. Cortical atrophy, periventricular small vessel disease. VENTRICLES: Unremarkable. No hydrocephalus. CALVARIUM: Unremarkable. PARANASAL SINUSES: Chronic sinusitis affecting left maxillary sinus, ethmoid and sphenoid air cells. Clear frontal sinuses. MASTOID AIR CELLS: Unremarkable as visualized. No inflammatory changes. OTHER FINDINGS: None. IMPRESSION: No acute intracranial abnormalities. No significant findings to account for the clinical presentation. No significant interval change compared to the prior examination(s).
--- NOTE | 2018-03-13 17:45 | RAD ---
PROCEDURE: Left Knee Radiographs. HISTORY: Left knee pain without history of recent trauma. COMPARISON: None. FINDINGS: BONES: Normal. No fracture. JOINTS: Patellofemoral degenerative change. JOINT EFFUSION: None. OTHER FINDINGS: None. IMPRESSION: No acute findings related to/accounting for the clinical presentation.
[2018-03-13 17:56] LABS: PH,URINE 7.5 (4.7-8.0); URINE BILIRUBIN NEGATIVE (NEGATIVE); URINE BLOOD NEGATIVE (NEGATIVE); URINE GLUCOSE (UA) NEGATIVE (NEGATIVE); URINE LEUKOCYTE ESTERASE NEGATIVE Leu/uL (NEGATIVE); URINE PROTEIN NEGATIVE mg/dL (<30 mg/dL); URINE UROBILINOGEN 0.2 E.U./dL (<1 E.U./dL)
[2018-03-13 17:57] LABS: URINE APPEARANCE CLEAR (CLEAR); URINE COLOR YELLOW (YELLOW)
--- NOTE | 2018-03-13 19:42 | CP.PCM.HP ---
<Jenelle Molina - Last Filed: 03/13/18 20:06> History of Present Illness - History of Present Illness History of Present Illness: 72yo female PMHx HTN, DM2, CAD s/p 2 stents, HLD, CHERRY, seizure disorder presents to the ER with 2 day history of dizziness. Patient reports the day before she felt dizzy and that the room was spinning for 1 hour. She reported the symptoms resolved by themselves and that she did not take anything for them to dalila. On the day of admission however she reported she had another episode of dizziness that was worse and lasted for > 1 hour which is why she decided to come in. She denied any syncope, fall, seizures, trauma to her head, or LOC. Patient reported she felt off balance again and unsteady on her feet. She reported that she used to take meclizine years ago for similar symptoms however had not had any episodes of dizziness for a while. On complete ROS patient denied any headache, fever, chills, chest pain, palpitations, SOB, cough, abd pain, nausea, vomiting, bowel/bladder complaints, swelling in her legs b/l, focal weakness, numbness/tingling/paresthesias in her extremities, loss of appetite, and changes in weight. She did admit to some knee pain after a fall in the shower. Of note patient has recently started seeing Dr. Brock for CHERRY and had second cycle of IV iron infusion on the day of admission [and the first cycle the week prior] PMHx: TN, DM2, CAD s/p 2 stents, HLD, CHERRY, seizure disorder dx 41yo PSurgHx: cardiac stents (one stent 2016, one stent 2014), tubal ligation, partial hysterectomy Meds: pls see EMR- patient reports compliance ALL: Naproxen and divalproex sodium FamHx: no hx of CVA/IN, Mother with ovarian ca, Father with CHF and NonHodgking' s lymphoma SocHx: denies tobacco, EToH, drug use. Ambulates with a walker. 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 Burroughs- last seen 2 weeks ago for knee pain. Next appointment was Neurologist: Dr. Toby Kirby Zigzag Machine Operator: Dr. Cirilo Lemon: Dr. Brock GI: Dr. Isaac Present on Admission - Present on Admission Any Indicators Present on Admission: No Review of Systems - Review of Systems All systems: reviewed and no additional remarkable complaints except Review of Systems: as per HPI Past Patient History - Infectious Disease Hx of Infectious Diseases: None - Tetanus Immunizations Tetanus Immunization: Unknown - Past Social History Smoking Status: Never Smoked - CARDIAC Hx Cardiac Disorders: Yes Hx Pacemaker: No - PULMONARY Hx Respiratory Disorders: No - NEUROLOGICAL Hx Neurological Disorder: Yes Hx Paralysis: No Hx Seizures: Yes Hx Vertigo: Yes - HEENT Hx HEENT Problems: No - RENAL Hx Chronic Kidney Disease: No - ENDOCRINE/METABOLIC Hx Endocrine Disorders: Yes Hx Diabetes Mellitus Type 1: Yes - HEMATOLOGICAL/ONCOLOGICAL Hx Blood Disorders: No Hx Blood Transfusions: No - INTEGUMENTARY Hx Dermatological Problems: No - MUSCULOSKELETAL/RHEUMATOLOGICAL Hx Musculoskeletal Disorders: Yes - GASTROINTESTINAL Hx Gastrointestinal Disorders: No - GENITOURINARY/GYNECOLOGICAL Hx Genitourinary Disorders: No Hx Reproductive Disorders: No - PSYCHIATRIC Hx Emotional Abuse: No Hx Physical Abuse: No Hx Substance Use: No - SURGICAL HISTORY Hx Cardiac Catheterization: Yes Hx Coronary Stent: Yes (03/2014) Hx Hysterectomy: Yes (partial) Hx Tubal Ligation: Yes - ANESTHESIA Hx Anesthesia Reactions: No Hx Malignant Hyperthermia: No Meds Allergies/Adverse Reactions: Allergies Allergy/AdvReac Type Severity Reaction Status Date / Time naproxen [From Naprosyn] Allergy Severe RASH Verified 03/13/18 14:18 divalproex sodium AdvReac Severe BACTERIAL Verified 03/13/18 14:18 [From Depakote] INFECTION Physical Exam - Constitutional Appears: Non-toxic, No Acute Distress - Head Exam Head Exam: ATRAUMATIC, NORMAL INSPECTION, NORMOCEPHALIC - Eye Exam Eye Exam: EOMI, Normal appearance, PERRL. absent: Conjunctival injection, Scleral icterus Pupil Exam: NORMAL ACCOMODATION - ENT Exam ENT Exam: Mucous Membranes Moist - Neck Exam Neck exam: Positive for: Full Rom, Normal Inspection. Negative for: Lymphadenopathy - Respiratory Exam Respiratory Exam: Clear to Auscultation Bilateral, NORMAL BREATHING PATTERN. absent: Accessory Muscle Use, Rales, Rhonchi, Wheezes, Respiratory Distress - Cardiovascular Exam Cardiovascular Exam: REGULAR RHYTHM, RRR, +S1, +S2. absent: Systolic Murmur - GI/Abdominal Exam GI & Abdominal Exam: Normal Bowel Sounds, Soft. absent: Firm, Guarding, Rigid, Tenderness - Rectal Exam Rectal Exam: Deferred - Extremities Exam Extremities exam: Positive for: normal capillary refill, normal inspection, pedal pulses present. Negative for: pedal edema - Neurological Exam Neurological exam: Alert, CN II-XII Intact, Oriented x3 - Expanded Neurological Exam Expanded Patient oriented to: person, place, time Speech: Fluid Speech Cranial nerves: EOM's Intact: Normal, Facial Palsey w/Forehead Movement: Normal , Facial Palsey w/o Forehead Movement: Normal, Facial Sensation: Normal, Gag Reflex: Normal, Nystagmus: Normal, Tongue Deviation: Normal Ataxia: No Cerebellar Function: Finger to Nose: Normal, Heel to Madrigal: Normal Upper motor neuron: Eleazar Neglect: Normal, Pronator Drift: Normal, Sensory Extinction: Normal Sensory exam: Lower Extremity Light Touch: Normal, Upper Extremity Light Touch: Normal Neuro motor strength exam: Left Upper Extremity: 5, Right Upper Extremity: 5, Left Lower Extremity: 5, Right Lower Extremity: 5 Coma Scale Eye Opening: SPONTANEOUS Coma Scale Motor Response: OBEYS COMMANDS Coma Scale Verbal: Oriented Coma Scale Total: 15 - Psychiatric Exam Psychiatric exam: Normal Affect, Normal Mood - Skin Skin Exam: Dry, Intact, Normal Color, Warm Results - Vital Signs Recent Vital Signs: Last Vital Signs Temp 98.2 F 03/13/18 14:02 Pulse 85 03/13/18 18:56 Resp 18 03/13/18 18:56 BP 163/86 H 03/13/18 18:56 Pulse Ox 98 03/13/18 18:56 - Labs Result Diagrams: 03/13/18 16:05 03/13/18 16:05 Assessment & Plan - Assessment and Plan (Free Text) Assessment: 72yo female PMHx HTN, DM2, CAD s/p 2 stents, HLD, CHERRY, seizure disorder presents to the ER with 2 day history of dizziness. Patient admitted to remote [facility] for further observation. Dizziness -likely BPPV -Head CT: negative -f/u orthostatics -PT/OT -Fall Risk -Neuro Dr. Kirby hx of CAD s/p stents -continue home asa, plavix, and statin -f/u lipid panel hx of HTN -continue home meds atenolol and lisinopril hx of DM2 -RISS low -Accucheck -f/u HgbA1c hx of HLD -contineu home statin -f/u lipid panel hx of CHERRY -patient received venofer this AM -f/u outpatient with Dr. Brock hx of seizure -continue home meds keppra and trilpetal Diet: HHD with [facility] GI ppx: pepcid 20 bid DVT ppx: SCDs PT/OT Discussed with Dr. Brigitte Molina PGY2 <Kaushal Briggs - Last Filed: 03/14/18 01:44> Results - Vital Signs Recent Vital Signs: Last Vital Signs Temp 98.2 F 03/13/18 14:02 Pulse 85 03/13/18 18:56 Resp 18 03/13/18 18:56 BP 163/86 H 03/13/18 18:56 Pulse Ox 98 03/13/18 18:56 - Labs Result Diagrams: 03/13/18 16:05 03/13/18 16:05 Labs: Laboratory Results - last 24 hr 03/13/18 21:48 POC Glucose (mg/dL) 78 Attending/Attestation - Attestation I have personally seen and examined this patient.: Yes I have fully participated in the care of the patient.: Yes I have reviewed all pertinent clinical information: Yes Notes (Text): Patient seen and examined with the residents. Agree with above Reporting dizziness with head movement - possibly BPPV symptomatic treatment with Meclizine prn Orthostatics and gentle hydration Neuro consultation with Dr Kirby appreciated. Microcytic anemia receiving Venofer with hematology as outpt
[2018-03-13] MEDS: Sodium Chloride 0.9% 1,000 ML IV SCH (22:18)
[2018-03-13] MEDS: Insulin Lispro (humaLOG) LOW Coverage SC SCH (22:19)
[2018-03-14 02:00] VITALS: TEMP 98; BMI 35.9
[2018-03-14] MEDS: Sodium Chloride 0.9% 1,000 ML IV SCH (05:56)
[2018-03-14 06:51] LABS: BASO # 0.03 K/mm3 (0.0-2.0); BASO % 0.2 % (0.0-3.0); EOS # 0.3 (0.0-0.7); EOS % 2.3 % (1.5-5.0); GRAN # 7.56 (1.4-6.5); GRAN % 61.2 % (50.0-68.0); LYMPH # 3.6 (1.2-3.4); LYMPH % 29.4 % (22.0-35.0); MEAN CELL VOLUME 73.4 fl (80.0-105.0); MEAN CORPUSCULAR HEMOGLOBIN 23.7 pg (25.0-35.0); MEAN CORPUSCULAR HGB CONC 32.4 g/dl (31.0-37.0); MONO # 0.9 (0.1-0.6); MONO % 6.9 % (1.0-6.0); RBC 3.79 10^6/uL (3.5-6.1); RED CELL DISTRIBUTION WIDTH 16.6 % (11.5-14.5); WHITE BLOOD COUNT 12.4 10^3/ul (4.5-11.0)
[2018-03-14 07:02] LABS: ALB/GLOB RATIO 1.1 (1.1-1.8); ALBUMIN 3.8 g/dL (3.0-4.8); ALT/SGPT 34 U/L (7-56); AST/SGOT 53 U/L (14-36); BLOOD UREA NITROGEN 7 mg/dL (7-21); CALCIUM 9.1 mg/dL (8.4-10.5); GFR AFRICAN-AMERICAN > 60; GFR NON-AFRICAN AMERICAN > 60; HDL CHOLESTEROL 43 mg/dL (29-60)
[2018-03-14 07:06] LABS: LDL CHOLESTEROL 63 mg/dL (0-129)
[2018-03-14] MEDS: Insulin Lispro (humaLOG) LOW Coverage SC SCH ×2 (07:49→11:39)
[2018-03-14 08:12] VITALS: BP 165/83; RESP 20
--- NOTE | 2018-03-14 08:15 | CARD ---
APPROVED REPORT EKG Measurement Heart [id number] <Conclusion> Sinus rhythm with 1st degree AV block Left axis deviation Possible Anterior infarct, age undetermined Abnormal ECG
[2018-03-14] MEDS ORDERED: OMEGA PO SCH (10:00)
[2018-03-14] MEDS ORDERED: FATTY ACIDS PO SCH (10:00)
[2018-03-14] MEDS ORDERED: Multivitamin With Minerals Tab PO SCH (10:00)
[2018-03-14] MEDS ORDERED: Cholecalciferol 1,000 INTLU TAB PO SCH (10:00)
[2018-03-14 13:18] LABS: IRON 210 ug/dL (45-180)
[2018-03-14 13:27] LABS: % IRON SATURATION 65 % (20-55); TOTAL IRON BINDING CAPACITY 325 ug/dL (265-497)
--- NOTE | 2018-03-14 13:41 | CP.PCM.PCO ---
Assessment & Plan - Assessment and Plan (Free Text) Assessment: NEURO COMMUNICATION NOTE: DIZZINESS SEC TO POSITIONAL VERTIGO WITH HYPONATREMIA SUPERIMPOSED OF UNDERLYING PERIPHERAL NEUROPATHY FROM DIABETES. -SALT RESTRICTION IN DIET AND AVOID SUDDEN MOVEMENTS. -CORRECT ELECTROLYTES. -VESTIBULAR THERAPY OUTPATIENT. -MECLIZINE 25 MG PO Q8HR PRN AT ACUTE ONSET OF DIZZINESS. -KEEP BLOOD SUGARS BTW 140-180. -TELE MONITORING. THANKS PT IS STABLE. KAROL HUGHES.
[2018-03-14 14:46] VITALS: PULSE 77
--- NOTE | 2018-03-14 15:57 | CON ---
DATE: 03/14/2018 HISTORY OF PRESENT ILLNESS: This is a 72-year-old female with past medical history of hypertension, diabetes and coronary artery disease, status post 2 stents, seizure disorder. Presents to the hospital with dizziness and reports that symptoms resolved by themselves and lying in the bed comfortably. Also, complained of low back pain radiating to left leg. PAST MEDICAL HISTORY: Diabetes, coronary artery disease, seizure disorder. PHYSICAL EXAMINATION: HEENT: Normocephalic, atraumatic. NECK: Supple. NEUROLOGIC: Alert, awake, oriented x3. No aphasia. Cranial nerves II through XII were tested. Pupils reactive. EOM intact. Visual field full. No facial asymmetry. Tongue midline. Motor examination: Moves all the extremities equally. Tone normal. Deep tendon reflexes 1+. Both plantars downgoing. Sensory appears intact. Cerebellar gait deferred. ALLERGY: NAPROXEN AND DEPAKOTE. IMPRESSION: A 72-year-old with a past medical history of hypertension, diabetes and seizure disorder. Came, 2-day history of dizziness. Symptoms improved. CAT scan of the head was done, which was reported negative. Had hyponatremia and workup in progress. Continue present management. We will follow up. Toby Kirby MD
--- NOTE | 2018-03-14 16:11 | CP.PCM.DIS ---
<Janki Kaufman - Last Filed: 03/14/18 16:14> Provider - Provider Date of Admission: 03/13/18 19:02 Attending physician: Yumiko Ellison MD Consults: Dr. Toby Kirby Time Spent in preparation of Discharge (in minutes): 45 Hospital Course - Lab Results Lab Results: Most Recent Lab Values WBC 12.4 10^3/ul (4.5-11.0) H 03/14/18 06:00 RBC 3.79 10^6/uL (3.5-6.1) 03/14/18 06:00 Hgb 9.0 g/dL (12.0-16.0) L 03/14/18 06:00 Hct 27.8 % (36.0-48.0) L 03/14/18 06:00 MCV 73.4 fl (80.0-105.0) L 03/14/18 06:00 MCH 23.7 pg (25.0-35.0) L 03/14/18 06:00 MCHC 32.4 g/dl (31.0-37.0) 03/14/18 06:00 RDW 16.6 % (11.5-14.5) H 03/14/18 06:00 Plt Count 400 10^3/uL (120.0-450.0) 03/14/18 06:00 MPV 8.0 fl (7.0-11.0) 03/14/18 06:00 Gran % 61.2 % (50.0-68.0) 03/14/18 06:00 Lymph % (Auto) 29.4 % (22.0-35.0) 03/14/18 06:00 [place] % (Auto) 6.9 % (1.0-6.0) H 03/14/18 06:00 Eos % (Auto) 2.3 % (1.5-5.0) 03/14/18 06:00 Baso % (Auto) 0.2 % (0.0-3.0) 03/14/18 06:00 Gran # 7.56 (1.4-6.5) H 03/14/18 06:00 Lymph # (Auto) 3.6 (1.2-3.4) H 03/14/18 06:00 [place] # (Auto) 0.9 (0.1-0.6) H 03/14/18 06:00 Eos # (Auto) 0.3 (0.0-0.7) 03/14/18 06:00 Baso # (Auto) 0.03 K/mm3 (0.0-2.0) 03/14/18 06:00 PT 11.9 SECONDS (9.4-12.5) 03/13/18 16:05 INR 1.04 (0.93-1.08) 03/13/18 16:05 APTT 31.1 Seconds (25.1-36.5) 03/13/18 16:05 Sodium 131 mmol/L (132-148) L 03/14/18 06:00 Potassium 4.8 mmol/L (3.6-5.0) 03/14/18 06:00 Chloride 93 mmol/L (98-107) L 03/14/18 06:00 Carbon Dioxide 30 mmol/L (21-33) 03/14/18 06:00 Anion Gap 12 (10-20) 03/14/18 06:00 BUN 7 mg/dL (7-21) 03/14/18 06:00 Creatinine 0.5 mg/dl (0.7-1.2) L 03/14/18 06:00 Est GFR ( Amer) > 60 03/14/18 06:00 Est GFR (Non-Af Amer) > 60 03/14/18 06:00 POC Glucose (mg/dL) 101 mg/dL (65-110) 03/14/18 11:15 Random Glucose 93 mg/dL (70-110) 03/14/18 06:00 Hemoglobin A1c 8.7 % (4.2-6.5) H D 03/14/18 06:00 Calcium 9.1 mg/dL (8.4-10.5) 03/14/18 06:00 Magnesium 2.0 mg/dL (1.7-2.2) 03/13/18 16:05 Iron 210 ug/dL (45-180) H 03/14/18 12:55 TIBC 325 ug/dL (265-497) 03/14/18 12:55 % Saturation 65 % (20-55) H 03/14/18 12:55 Total Bilirubin 0.2 mg/dL (0.2-1.3) 03/14/18 06:00 AST 53 U/L (14-36) H 03/14/18 06:00 ALT 34 U/L (7-56) 03/14/18 06:00 Alkaline Phosphatase 102 U/L (38-126) 03/14/18 06:00 Lactate Dehydrogenase 526 U/L (333-699) 03/13/18 16:05 Total Creatine Kinase 22 U/L (35-230) L 03/13/18 16:05 Troponin I < 0.01 ng/mL 03/13/18 16:05 NT-Pro-B Natriuret Pep 25.9 pg/mL (0-450) 03/13/18 16:05 Total Protein 7.4 g/dL (5.8-8.3) 03/14/18 06:00 Albumin 3.8 g/dL (3.0-4.8) 03/14/18 06:00 Globulin 3.5 gm/dL 03/14/18 06:00 Albumin/Globulin Ratio 1.1 (1.1-1.8) 03/14/18 06:00 Triglycerides 103 mg/dL (35-160) 03/14/18 06:00 Cholesterol 137 mg/dL (130-200) 03/14/18 06:00 LDL Cholesterol Direct 63 mg/dL (0-129) 03/14/18 06:00 HDL Cholesterol 43 mg/dL (29-60) 03/14/18 06:00 Urine Color Yellow (YELLOW) 03/13/18 17:44 Urine Appearance Clear (CLEAR) 03/13/18 17:44 Urine pH 7.5 (4.7-8.0) 03/13/18 17:44 Ur Specific [place] 1.010 (1.005-1.035) 03/13/18 17:44 Urine Protein Negative mg/dL (<30 mg/dL) 03/13/18 17:44 Urine Glucose (UA) Negative mg/dL (NEGATIVE) 03/13/18 17:44 Urine Ketones Negative mg/dL (NEGATIVE) 03/13/18 17:44 Urine Blood Negative (NEGATIVE) 03/13/18 17:44 Urine Nitrate Negative (NEGATIVE) 03/13/18 17:44 Urine Bilirubin Negative (NEGATIVE) 03/13/18 17:44 Urine Urobilinogen 0.2 E.U./dL (<1 E.U./dL) 03/13/18 17:44 Ur Leukocyte Esterase Negative Delia/uL (NEGATIVE) 03/13/18 17:44 - Hospital Course Hospital Course: 72 year old female with a past medical history of hypertension, DM II, CAD s/p 2 stents, hyperlipidemia, iron deficiency anemia, and seizure disorder who presented to the ER with 2 day history of dizziness. Patient reports the day before she felt dizzy and that the room was spinning for 1 hour. She reported the symptoms resolved by themselves and that she did not take anything for them to dalila. On the day of admission however she reported she had another episode of dizziness that was worse and lasted for > 1 hour which is why she decided to come in. She denied any syncope, fall, seizures, trauma to her head, or LOC. Patient reported she felt off balance again and unsteady on her feet. She reported that she used to take meclizine years ago for similar symptoms however had not had any episodes of dizziness for a while. On complete ROS patient denied any headache, fever, chills, chest pain, palpitations, SOB, cough, abd pain, nausea, vomiting, bowel/bladder complaints, swelling in her legs b/l, focal weakness, numbness/tingling/paresthesias in her extremities, loss of appetite, and changes in weight. She did admit to some knee pain after a fall in the shower. Of note patient has recently started seeing Dr. Brock for CHERRY and had second cycle of IV iron infusion on the day of admission [and the first cycle the week prior]. Patient underwent CT head and chest X-ray which were negative. Patient complained of left leg pain extending from the hip to the knee. Two view radiograph of the knee demonstrated patellofemoral changes. Neurology was consulted and thought the patient dizziness was secondary to positional vertigo worsenied by the patient's hyponatremia superimposed on an underlying peripheral neuropathy. The patient was asked to observe a salt restricted diet, to obtain vestibular therapy as an outpatient, and prescribed Meclizine 25 mg q8h PO for acute dizziness. 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 Brock and Dr. Isaac, who she is scheduled to see in March. She was also instructed to avoid sudden movements and to follow up with her PMD within the next week, Dr. Burroughs. Physical therapy also evaluated the patient and recommend she undertake outpatient physical therapy for gait disturbance and for her balance. A prescription for outpatient PT was also provided to the patient at the time of discharge. - Date & Time of H&P Date of H&P: 03/14/18 Time of H&P: 16:18 Discharge Exam - Head Exam Head Exam: ATRAUMATIC, NORMAL INSPECTION, NORMOCEPHALIC - Eye Exam Eye Exam: EOMI, Normal appearance - ENT Exam ENT Exam: Mucous Membranes Moist - Neck Exam Neck exam: Normal Inspection - Respiratory Exam Respiratory Exam: Clear to PA & Lateral, NORMAL BREATHING PATTERN. absent: Accessory Muscle Use - Cardiovascular Exam Cardiovascular Exam: RRR, +S1, +S2 - GI/Abdominal Exam GI & Abdominal Exam: Normal Bowel Sounds, Soft - Extremities Exam Extremities exam: normal inspection - Neurological Exam Neurological exam: Alert, CN II-XII Intact, Oriented x3 - Psychiatric Exam Psychiatric exam: Normal Affect, Normal Mood - Skin Skin Exam: Dry, Intact, Normal Color, Warm Discharge Plan - Discharge Medications Prescriptions: Meclizine [Meclizine*] 25 mg PO Q8H PRN #30 tab PRN Reason: Dizziness - Follow Up Plan Condition: FAIR Disposition: HOME/ ROUTINE Instructions: Vertigo (a Type of Dizziness) (DC), Dizziness, Nonvertigo, (DC) Additional Instructions: 1) Patient to follow up with Dr. Isaac and Dr. Brock in regards to her anemia. 2) Patient to take any medications as directed. 3) Patient to follow up with Physical Therapy as an outpatient. 4) Patient to follow up with PMD within one week of discharge, Dr. Burroughs. <Yumiko Ellison - Last Filed: 03/15/18 07:46> Provider - Provider Date of Admission: 03/13/18 19:02 Attending physician: Yumiko Ellison MD Hospital Course - Lab Results Lab Results: Most Recent Lab Values WBC 12.4 10^3/ul (4.5-11.0) H 03/14/18 06:00 RBC 3.79 10^6/uL (3.5-6.1) 03/14/18 06:00 Hgb 9.0 g/dL (12.0-16.0) L 03/14/18 06:00 Hct 27.8 % (36.0-48.0) L 03/14/18 06:00 MCV 73.4 fl (80.0-105.0) L 03/14/18 06:00 MCH 23.7 pg (25.0-35.0) L 03/14/18 06:00 MCHC 32.4 g/dl (31.0-37.0) 03/14/18 06:00 RDW 16.6 % (11.5-14.5) H 03/14/18 06:00 Plt Count 400 10^3/uL (120.0-450.0) 03/14/18 06:00 MPV 8.0 fl (7.0-11.0) 03/14/18 06:00 Gran % 61.2 % (50.0-68.0) 03/14/18 06:00 Lymph % (Auto) 29.4 % (22.0-35.0) 03/14/18 06:00 Armstrong % (Auto) 6.9 % (1.0-6.0) H 03/14/18 06:00 Eos % (Auto) 2.3 % (1.5-5.0) 03/14/18 06:00 Baso % (Auto) 0.2 % (0.0-3.0) 03/14/18 06:00 Gran # 7.56 (1.4-6.5) H 03/14/18 06:00 Lymph # (Auto) 3.6 (1.2-3.4) H 03/14/18 06:00 [place] # (Auto) 0.9 (0.1-0.6) H 03/14/18 06:00 Eos # (Auto) 0.3 (0.0-0.7) 03/14/18 06:00 Baso # (Auto) 0.03 K/mm3 (0.0-2.0) 03/14/18 06:00 PT 11.9 SECONDS (9.4-12.5) 03/13/18 16:05 INR 1.04 (0.93-1.08) 03/13/18 16:05 APTT 31.1 Seconds (25.1-36.5) 03/13/18 16:05 Sodium 131 mmol/L (132-148) L 03/14/18 06:00 Potassium 4.8 mmol/L (3.6-5.0) 03/14/18 06:00 Chloride 93 mmol/L (98-107) L 03/14/18 06:00 Carbon Dioxide 30 mmol/L (21-33) 03/14/18 06:00 Anion Gap 12 (10-20) 03/14/18 06:00 BUN 7 mg/dL (7-21) 03/14/18 06:00 Creatinine 0.5 mg/dl (0.7-1.2) L 03/14/18 06:00 Est GFR ( Amer) > 60 03/14/18 06:00 Est GFR (Non-Af Amer) > 60 03/14/18 06:00 POC Glucose (mg/dL) 101 mg/dL (65-110) 03/14/18 11:15 Random Glucose 93 mg/dL (70-110) 03/14/18 06:00 Hemoglobin A1c 8.7 % (4.2-6.5) H D 03/14/18 06:00 Calcium 9.1 mg/dL (8.4-10.5) 03/14/18 06:00 Magnesium 2.0 mg/dL (1.7-2.2) 03/13/18 16:05 Iron 210 ug/dL (45-180) H 03/14/18 12:55 TIBC 325 ug/dL (265-497) 03/14/18 12:55 % Saturation 65 % (20-55) H 03/14/18 12:55 Ferritin 41.4 ng/mL 03/14/18 06:00 Total Bilirubin 0.2 mg/dL (0.2-1.3) 03/14/18 06:00 AST 53 U/L (14-36) H 03/14/18 06:00 ALT 34 U/L (7-56) 03/14/18 06:00 Alkaline Phosphatase 102 U/L (38-126) 03/14/18 06:00 Lactate Dehydrogenase 526 U/L (333-699) 03/13/18 16:05 Total Creatine Kinase 22 U/L (35-230) L 03/13/18 16:05 Troponin I < 0.01 ng/mL 03/13/18 16:05 NT-Pro-B Natriuret Pep 25.9 pg/mL (0-450) 03/13/18 16:05 Total Protein 7.4 g/dL (5.8-8.3) 03/14/18 06:00 Albumin 3.8 g/dL (3.0-4.8) 03/14/18 06:00 Globulin 3.5 gm/dL 03/14/18 06:00 Albumin/Globulin Ratio 1.1 (1.1-1.8) 03/14/18 06:00 Triglycerides 103 mg/dL (35-160) 03/14/18 06:00 Cholesterol 137 mg/dL (130-200) 03/14/18 06:00 LDL Cholesterol Direct 63 mg/dL (0-129) 03/14/18 06:00 HDL Cholesterol 43 mg/dL (29-60) 03/14/18 06:00 Vitamin B12 832 pg/mL (239-931) 03/14/18 06:00 Folate > 20.0 ng/mL 03/14/18 06:00 Urine Color Yellow (YELLOW) 03/13/18 17:44 Urine Appearance Clear (CLEAR) 03/13/18 17:44 Urine pH 7.5 (4.7-8.0) 03/13/18 17:44 Ur Specific [place] 1.010 (1.005-1.035) 03/13/18 17:44 Urine Protein Negative mg/dL (<30 mg/dL) 03/13/18 17:44 Urine Glucose (UA) Negative mg/dL (NEGATIVE) 03/13/18 17:44 Urine Ketones Negative mg/dL (NEGATIVE) 03/13/18 17:44 Urine Blood Negative (NEGATIVE) 03/13/18 17:44 Urine Nitrate Negative (NEGATIVE) 03/13/18 17:44 Urine Bilirubin Negative (NEGATIVE) 03/13/18 17:44 Urine Urobilinogen 0.2 E.U./dL (<1 E.U./dL) 03/13/18 17:44 Ur Leukocyte Esterase Negative Delia/uL (NEGATIVE) 03/13/18 17:44 Attending/Attestation - Attestation I have personally seen and examined this patient.: Yes I have fully participated in the care of the patient.: Yes I have reviewed all pertinent clinical information, including history, physical exam and plan: Yes Notes (Text): 03/14/18 72 year old female with past medical history of hypertension, diabetes, CAD s/p stents, iron deficiency anemia and seizure disorder who presented with complaint of dizziness. Symptoms improved after a dose of meclizine. CT head was negative for acute findings. She was seen by PT and neurology who recommended outpatient vestibular rehab. Patient had mild hyponatremia which improved. She has chronic anemia who which she sees hematology but was also advised to follow up with GI. Patient is discharged home to follow up with her pmd. Follow up with GI and hematology. Outpatient PT and vestibular rehab. Yumiko Ellison MD Hospitalist.
[2018-03-14 16:32] LABS: FERRITIN 41.4 ng/mL
[2018-03-14 17:02] LABS: FOLATE > 20.0 ng/mL
== END 2018-03-14 15:08 | disposition home or self-care (01) ==
LOC: ED 13:52 → ERH 19:02 → 3RNO 21:01
PROVIDERS: ADMIT Internal Medicine; ATTEND Internal Medicine
DX: E87.1 Hypo-osmolality and hyponatremia (principal); E11.42 Type 2 diabetes mellitus with diabetic polyneuropathy; R42 Dizziness and giddiness; I10 Essential (primary) hypertension; E78.5 Hyperlipidemia, unspecified; I25.10 Atherosclerotic heart disease of native coronary artery without angina pectoris; D50.9 Iron deficiency anemia, unspecified; G40.909 Epilepsy, unspecified, not intractable, without status epilepticus; M25.562 Pain in left knee; Z91.81 History of falling; Z95.5 Presence of coronary angioplasty implant and graft
CPT/HCPCS: 36415; 70450; 71045; 73560; 80053; 80061; 81003; 82550; 82607; 82728; 82746; 82948; 83036; 83540; 83550; 83615; 83735; 83880; 84484; 85025; 85610; 85730; 87086; 93005; 96360; 97116; 97161; 99285; G0378; G8978; G8979; G8980; J7030; J7120

== ENCOUNTER 2018-06-07 07:50 | Day surgery (SDC) | payer MEDICARE ==
[2018-06-07 08:41] LABS: BASO # 0.03 K/mm3 (0.0-2.0); BASO % 0.3 % (0.0-3.0); EOS # 0.3 (0.0-0.7); EOS % 3.1 % (1.5-5.0); GRAN # 6.58 (1.4-6.5); GRAN % 62.7 % (50.0-68.0); LYMPH # 2.9 (1.2-3.4); LYMPH % 27.4 % (22.0-35.0); MEAN CELL VOLUME 80.5 fl (80.0-105.0); MEAN CORPUSCULAR HGB CONC 32.3 g/dl (31.0-37.0); MEAN PLATELET VOLUME 7.9 fl (7.0-11.0); MONO # 0.7 (0.1-0.6); MONO % 6.5 % (1.0-6.0); RBC 3.85 10^6/uL (3.5-6.1); RED CELL DISTRIBUTION WIDTH 16.9 % (11.5-14.5); WHITE BLOOD COUNT 10.5 10^3/ul (4.5-11.0)
[2018-06-07 08:53] LABS: INR 1.06; PARTIAL THROMBOPLASTIN TIME 33.3 Seconds (25.1-36.5); PROTHROMBIN TIME 12.2 SECONDS (9.4-12.5)
[2018-06-07] MEDS ORDERED: Propofol 10 mg/ml Inj (20 ML) ONE (09:52)
[2018-06-07] MEDS ORDERED: Etomidate 20 mg/10ml Inj IV ONE (10:20)
[2018-06-07] MEDS ORDERED: Sodium Chloride 0.9% 1,000 ML IV SCH (11:00)
[2018-06-07 11:22] VITALS: O2SAT 99
[2018-06-07 11:46] VITALS: BP 158/82; PULSE 87; RESP 19; TEMP 98.1
== END 2018-06-07 12:34 | disposition home or self-care (01) ==
LOC: ENDO 07:50
PROVIDERS: ATTEND Internal Medicine Gastroenterology
DX: K31.7 Polyp of stomach and duodenum (principal); K29.50 Unspecified chronic gastritis without bleeding; D50.9 Iron deficiency anemia, unspecified; D12.5 Benign neoplasm of sigmoid colon; K57.30 Diverticulosis of large intestine without perforation or abscess without bleeding; K64.8 Other hemorrhoids; I25.10 Atherosclerotic heart disease of native coronary artery without angina pectoris; I10 Essential (primary) hypertension
CPT/HCPCS: 36415; 43239; 43251; 45385; 82948; 85025; 85610; 85730; 88305; 88312; 88342; J2704; J3010; J7030

== ENCOUNTER 2018-07-11 16:26 | Inpatient (IN) | payer MEDICARE ==
[2018-07-11 17:23] LABS: BASO # 0.02 K/mm3 (0.0-2.0); BASO % 0.2 % (0.0-3.0); EOS # 0.3 (0.0-0.7); EOS % 2.6 % (1.5-5.0); GRAN # 7.97 (1.4-6.5); GRAN % 61.9 % (50.0-68.0); LYMPH # 3.8 (1.2-3.4); LYMPH % 29.6 % (22.0-35.0); MEAN CELL VOLUME 76.1 fl (80.0-105.0); MEAN CORPUSCULAR HEMOGLOBIN 22.8 pg (25.0-35.0); MEAN CORPUSCULAR HGB CONC 29.9 g/dl (31.0-37.0); MEAN PLATELET VOLUME 7.9 fl (7.0-11.0); MONO # 0.7 (0.1-0.6); MONO % 5.7 % (1.0-6.0); RBC 2.59 10^6/uL (3.5-6.1); RED CELL DISTRIBUTION WIDTH 18.4 % (11.5-14.5); WHITE BLOOD COUNT 12.9 10^3/ul (4.5-11.0)
--- NOTE | 2018-07-11 17:32 | RAD ---
Date of service: 07/11/2018 HISTORY: anemia COMPARISON: 03/13/2018. FINDINGS: LUNGS: The lungs are well inflated and clear. PLEURA: No pleural effusions or pneumothorax. CARDIOVASCULAR: The heart is normal in size. No aortic atherosclerotic calcification present. OSSEOUS STRUCTURES: Within normal limits for the patient's age. VISUALIZED UPPER ABDOMEN: Normal. OTHER FINDINGS: None. IMPRESSION: No active pulmonary disease.
[2018-07-11 17:34] LABS: INR 1.05; PARTIAL THROMBOPLASTIN TIME 36.6 Seconds (25.1-36.5)
[2018-07-11 17:36] LABS: ALBUMIN 3.7 g/dL (3.0-4.8); ALT/SGPT 22 U/L (7-56); AST/SGOT 34 U/L (14-36); BLOOD UREA NITROGEN 9 mg/dL (7-21); GFR NON-AFRICAN AMERICAN > 60
[2018-07-11 17:40] LABS: HEMOGLOBIN 5.9 g/dL (12.0-16.0)
[2018-07-11 17:48] LABS: TROPONIN I < 0.01 ng/mL
[2018-07-11] MEDS ORDERED: Sodium Chloride 0.9% 500 ML IV STA (18:05)
[2018-07-11 18:59] LABS: URINE BILIRUBIN NEGATIVE (NEGATIVE); URINE BLOOD NEGATIVE (NEGATIVE); URINE GLUCOSE (UA) NEGATIVE (NEGATIVE); URINE LEUKOCYTE ESTERASE NEGATIVE Leu/uL (NEGATIVE); URINE PROTEIN TRACE mg/dL (<30 mg/dL); URINE UROBILINOGEN 0.2 E.U./dL (<1 E.U./dL)
--- NOTE | 2018-07-11 19:00 | ED PDOC ---
Arrival/HPI - General Chief Complaint: Abnormal Labs Time Seen by Provider: 07/11/18 16:48 Historian: Patient - History of Present Illness Narrative History of Present Illness (Text): 07/11/18 18:56 72yr old female presents today sent in by PMD for anemia. pt states she has been dealing with anemia for the past 2 months. pt states she was getting iron supplementation. pt states she had upper endoscopy and colonoscopy 1 month ago. pt states they couldnt find any explanation for bleeding. pt denies hematochezia. Patient denies dark stools. denies vomiting/diarrhea. pt denies abdominal pain. no fever/chills. no cough. pt states she is having occasional SOB/SMILEY. denies cp or sob at present time. no other complaints. Past Medical History - Provider Review Nursing Documentation Reviewed: Yes - Travel History Have you recently traveled outside [place] w/in the past 3 mons?: No - Past History Past History: No Previous - Infectious Disease Hx of Infectious Diseases: None - Tetanus Immunization Tetanus Immunization: Unknown - Cardiac Hx Hypertension: Yes Hx Pacemaker: No - Pulmonary Hx Respiratory Disorders: No - Neurological Hx Seizures: Yes - HEENT Hx HEENT Disorder: No - Renal Hx Renal Disorder: No - Endocrine/Metabolic Hx Diabetes Mellitus Type 1: Yes - Hematological/Oncological Hx Blood Transfusions: No - Integumentary Hx Dermatological Disorder: No - Musculoskeletal/Rheumatological Hx Musculoskeletal Disorders: Yes - Gastrointestinal Hx Gastroesophageal Reflux: Yes - Genitourinary/Gynecological Other/Comment: TUBAL LIGATION, HYSTERECTOMY - Psychiatric Hx Emotional Abuse: No Hx Physical Abuse: No Hx Substance Use: No - Surgical History Hx Cardiac Catheterization: Yes Hx Coronary Stent: Yes Hx Hysterectomy: Yes - Anesthesia Hx Anesthesia Reactions: No Hx Malignant Hyperthermia: No - Suicidal Assessment Feels Threatened In Home Enviroment: No Family/Social History - Physician Review Nursing Documentation Reviewed: Yes Family/Social History: Unknown Family HX Smoking Status: Never Smoked Hx Alcohol Use: No Hx Substance Use: No Hx Substance Use Treatment: No Allergies/Home Meds Allergies/Adverse Reactions: Allergies naproxen [From Naprosyn] Allergy (Severe, Verified 07/11/18 16:38) RASH divalproex sodium [From Depakote] Adverse Reaction (Severe, Verified 07/11/18 16:38) BACTERIAL INFECTION Home Medications: Home Meds Medication Instructions Recorded Confirmed Atenolol 50 mg PO DAILY 02/04/13 07/11/18 Insulin Detemir [Levemir] 50 unit SC HS 02/04/13 07/11/18 Aspirin [Lo-Dose Aspirin EC] 81 mg PO DAILY 02/06/17 07/11/18 Cholecalciferol (Vitamin D3) 1,000 unit PO BID 02/06/17 07/11/18 [Vitamin D3] Insulin Lispro Mix 75/25 [HumaLog 20 units SC ACBD 02/06/17 07/11/18 MIX 75/25] Lisinopril [Zestril] 10 mg PO DAILY 02/06/17 07/11/18 Multivit-Min/FA/Lycopen/Lutein 1 tab PO DAILY 02/06/17 07/11/18 [Centrum Silver Tablet] OXcarbazepine [Trileptal] 900 mg PO BID 02/06/17 07/11/18 [place]-3 Fatty Acids [Fish Oil] 300 mg PO BID 02/06/17 07/11/18 levETIRAcetam [Keppra] 500 mg PO BID 02/06/17 07/11/18 Gabapentin [Neurontin] 300 mg PO BID 06/04/18 07/11/18 Insulin Degludec/Liraglutide 30 units SQ DAILY 06/04/18 07/11/18 [Xultophy 100 Unit-3.6MG/ml Pen] Loratadine/Pseudoephedrine 1 each PO HS 06/04/18 07/11/18 [Claritin-D 24 Hour Tablet] Omeprazole Magnesium [Prilosec Otc] 20 mg PO DAILY 06/04/18 07/11/18 Review of Systems - Review of Systems Constitutional: Fatigue. absent: Fevers Respiratory: absent: SOB, Cough Cardiovascular: SMILEY. absent: Chest Pain, Palpitations Gastrointestinal: absent: Abdominal Pain, Nausea, Vomiting Genitourinary Female: absent: Dysuria, Frequency, Hematuria Musculoskeletal: absent: Arthralgias, Back Pain, Neck Pain Skin: absent: Rash, Pruritis Neurological: absent: Headache, Dizziness Psychiatric: absent: Anxiety, Depression Physical Exam Vital Signs Reviewed: Yes Vital Signs Temp Pulse Resp BP Pulse Ox 07/11/18 16:35 98.3 F 94 H 18 98/61 L 99 Temperature: Afebrile Blood Pressure: Hypotensive Pulse: Regular Respiratory Rate: Normal Appearance: Positive for: Well-Appearing, Non-Toxic, Comfortable Pain Distress: None Mental Status: Positive for: Alert and Oriented X 3 - Systems Exam Head: Present: Atraumatic Mouth: Present: Moist Mucous Membranes Neck: Present: Normal Range of Motion Respiratory/Chest: Present: Clear to Auscultation, Good Air Exchange. No: Respiratory Distress, Accessory Muscle Use Cardiovascular: Present: Regular Rate and Rhythm Abdomen: No: Tenderness, Rebound, Guarding Rectal: Present: Hemorrhoids, Normal Rectal Tone. No: Occult Blood, Rectal Tenderness, Gross Blood, Melena Upper Extremity: Present: Normal ROM Lower Extremity: Present: Normal ROM Neurological: Present: GCS=15, Speech Normal Skin: Present: Warm, Dry, Normal Color, Pale Psychiatric: Present: Alert, Oriented x 3 Medical Decision Making ED Course and Treatment: 07/11/18 19:01 72yr old female with symptomatic anemia; wbc; 12.9 hgb; 5.9 CMP: NA: 130 EKG: NSR at 91b/m no st elevations. , left axis deviation. qtc 455 pt given NS 500cc bolus. consent for blood transfusion obtained. cxr; wnl will transfuse 2 units PRBCS. case discussed with dr. cavazos; accepts admission to tele. impression; symptomatic anemia admit to tele. - Lab Interpretations Lab Results: 07/11/18 17:05 07/11/18 17:05 Lab Results 07/11/18 17:05: WBC 12.9 H D, RBC 2.59 L, Hgb 5.9 L* D, Hct 19.7 L*, MCV 76.1 L D, MCH 22.8 L, MCHC 29.9 L, RDW 18.4 H, Plt Count 499 H, MPV 7.9, Gran % 61.9, Lymph % (Auto) 29.6, [place] % (Auto) 5.7, Eos % (Auto) 2.6, Baso % (Auto) 0.2, Gra n # 7.97 H, Lymph # (Auto) 3.8 H, [place] # (Auto) 0.7 H, Eos # (Auto) 0.3, Baso # (Auto) 0.02 07/11/18 17:05: Blood Type O POSITIVE, Antibody Screen Negative, Crossmatch See Detail, BBK History Checked Patient has bt 07/11/18 17:05: Sodium 130 L, Potassium 5.0, Chloride 97 L, Carbon Dioxide 26, Anion Gap 12, BUN 9, Creatinine 0.6 L, Est GFR ( Amer) > 60, Est GFR (Non-Af Amer) > 60, Random Glucose 106, Calcium 9.0, Total Bilirubin 0.1 L, AST 34, ALT 22, Alkaline Phosphatase 138 H D, Lactate Dehydrogenase 364, Total Creatine Kinase < 20 L, Troponin I < 0.01, Total Protein 7.4, Albumin 3.7, Globulin 3.6, Albumin/Globulin Ratio 1.0 L 07/11/18 17:05: PT 12.0, INR 1.05, APTT 36.6 H - RAD Interpretation Radiology Orders: 07/11/18 17:02 CHEST PORTABLE [RAD] Stat - Medication Orders Current Medication Orders: Discontinued Medications Sodium Chloride (Sodium Chloride 0.9%) 500 mls @ 999 mls/hr IV .Q31M STA Stop: 07/11/18 18:35 Last Admin: 07/11/18 18:41 Dose: 999 mls/hr eMAR Start Stop Document 07/11/18 18:41 GMD (Rec: 07/11/18 18:41 GMD [facility]) Intravenous Solution Start Date 07/11/18 Start Time 18:41 End Date 07/11/18 End time 19:11 Total Infusion Time 30 Disposition/Present on Arrival - Present on Arrival Any Indicators Present on Arrival: No History of DVT/PE: No History of Uncontrolled Diabetes: No Urinary Catheter: No History of Decub. Ulcer: No History Surgical Site Infection Following: None - Disposition Have Diagnosis and Disposition been Completed?: Yes Diagnosis: Symptomatic anemia Disposition: HOSPITALIZED Disposition Time: 18:15 Patient Plan: Admission Patient Problems: Current Active Problems Problem Status Onset Symptomatic anemia Acute Condition: FAIR Referrals: Leroy Burroughs MD [Primary Care Provider] - Follow up with primary Forms: Kiosked ([place])
[2018-07-11 19:03] LABS: URINE APPEARANCE CLEAR (CLEAR); URINE COLOR YELLOW (YELLOW)
[2018-07-11 19:15] LABS: URINE BACTERIA SMALL (NEG); URINE RBC 0 - 2 /hpf (0-2); URINE WBC 0 - 2 /hpf (0-6)
--- NOTE | 2018-07-11 21:17 | CP.PCM.HP ---
History of Present Illness - History of Present Illness History of Present Illness: Sandoval Castrocameron, PGY-1 History and Physical for Hospitalist Service CC: Anemia HPI: 72 y/o female PMHx HTN, DM2, CAD s/p 2 stents(2016, 2014), HLD, Fe Def Anemia on Fe infusions, seizure disorder, positional vertigo, iron deficiency anemia, admitted for asymptomatic anemia. Patient was being seen in Dr. Arizmendi office for her iron infusion, after which she was found to have low H&H, and told to present to the ED. She notes that she was diagnosed with anemia 02/12/2018, but her levels have never been as low as today. Patient has never had blood transfusion in the past. She states that she resumed iron infusions one day ago, having stopped for 1.5 months secondary to feeling unwell. She denies CP, dizziness, N/V/D, dark stools, hematuria, dysuria, fever, chills, cough, congestion. Patient states that she feels well, with no acute complaints. In addition, patient notes that over the past 2 months she has had an increased frequency in dizzy spells, having 1-2 episodes per week. She has had episodes of falls secondary to dizziness, but denies LOC or trauma. Last episode was 1 week ago without fall. She was admitted for dizzy spells 03/13/[address] head and CXR were obtained, both resulted WNL.Symptoms resolved with meclizine. Neurology evaluated pt, and felt symptoms likely secondary to positional vertigo exacerbated by hyponatremia and peripheral neuropathy. She was also found to have microcytic anemia, and was told to f/u with Dr. Brock and Dr. Isaac as scheduled for further evaluation. She was discharged with Meclizine, and recommended to continue outpatient PT. Patient states that she was not able to f/u with PT. She was seen by Dr. Isaac for EGD(06/07) and colonoscopy(06/11). Colonoscopy resulted sigmoid polyp and tubular adenoma. EGD resulted mild chronic gastritis, gastric fundic polyps, mildly inflamed esophagogastric junction type mucosa with intestinal metaplasia. No further work-up was performed. Patient is compliant with medication regimen for all chronic conditions. 2 months ago, patient was switched to Lantus for management of DM. She states that her fasting BS has been ranging from 80-200, but denies episodes of hyper or hypoglycemia. Patient has not f/u with outpatient cardiology since stent placement in 2017. PMHx: HTN, DM2, CAD s/p 2 stents, HLD, CHERRY, seizure disorder dx 41yo PSurgHx: cardiac stents (one stent 2016, one stent 2014), tubal ligation, partial hysterectomy Meds: see EMR- patient reports compliance ALL: Naproxen and divalproex sodium FamHx: no hx of CVA/[place], Mother with ovarian ca, Father with CHF and NonHodgkin's lymphoma SocHx: denies tobacco, EToH, drug use. Ambulates with a walker. 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 Burroughs Neurologist: Dr. Toby [place] Production Supervisor: Dr. Cirilo Mitchellc: Dr. Brock GI: Dr. Isaac Present on Admission - Present on Admission Any Indicators Present on Admission: No Review of Systems - Review of Systems Review of Systems: 12 point ROS completed and negative except as described in HPI. Past Patient History - Infectious Disease Hx of Infectious Diseases: None - Tetanus Immunizations Tetanus Immunization: Unknown - Past Social History Smoking Status: Never Smoked - CARDIAC Hx Hypertension: Yes Hx Pacemaker: No - PULMONARY Hx Respiratory Disorders: No - NEUROLOGICAL Hx Seizures: Yes - HEENT Hx HEENT Problems: No - RENAL Hx Chronic Kidney Disease: No - ENDOCRINE/METABOLIC Hx Diabetes Mellitus Type 1: Yes - HEMATOLOGICAL/ONCOLOGICAL Hx Blood Transfusions: No - INTEGUMENTARY Hx Dermatological Problems: No - MUSCULOSKELETAL/RHEUMATOLOGICAL Hx Musculoskeletal Disorders: Yes - GASTROINTESTINAL Hx Gastroesophageal Reflux: Yes - GENITOURINARY/GYNECOLOGICAL Other/Comment: TUBAL LIGATION, HYSTERECTOMY - PSYCHIATRIC Hx Emotional Abuse: No Hx Physical Abuse: No Hx Substance Use: No - SURGICAL HISTORY Hx Cardiac Catheterization: Yes Hx Coronary Stent: Yes Hx Hysterectomy: Yes - ANESTHESIA Hx Anesthesia Reactions: No Hx Malignant Hyperthermia: No Meds Allergies/Adverse Reactions: Allergies Allergy/AdvReac Type Severity Reaction Status Date / Time naproxen [From Naprosyn] Allergy Severe RASH Verified 07/11/18 16:38 divalproex sodium AdvReac Severe BACTERIAL Verified 07/11/18 16:38 [From Depakote] INFECTION Physical Exam - Constitutional Appears: Well, Non-toxic, No Acute Distress - Head Exam Head Exam: ATRAUMATIC, NORMOCEPHALIC - Eye Exam Eye Exam: EOMI, Normal appearance Pupil Exam: PERRL - ENT Exam ENT Exam: Mucous Membranes Moist - Neck Exam Neck exam: Positive for: Full Rom, Normal Inspection - Respiratory Exam Respiratory Exam: Clear to Auscultation Bilateral, NORMAL BREATHING PATTERN. absent: Accessory Muscle Use, Chest Wall Tenderness, Rales, Rhonchi, Wheezes - Cardiovascular Exam Cardiovascular Exam: Tachycardia, RRR, +S1, +S2 - GI/Abdominal Exam GI & Abdominal Exam: Soft. absent: Distended, Firm, Guarding, Rebound, Tenderness - Extremities Exam Extremities exam: Positive for: pedal edema (2+). Negative for: tenderness - Back Exam Back exam: absent: CVA tenderness (L), CVA tenderness (R) - Neurological Exam Neurological exam: Alert, Oriented x3 - Psychiatric Exam Psychiatric exam: Normal Affect, Normal Mood - Skin Skin Exam: Pallor Additional comments: No petechiae. Vascular changes to bilateral lower extremities Results - Vital Signs Recent Vital Signs: Last Vital Signs Temp 98.3 F 07/11/18 21:03 Pulse 93 H 07/11/18 21:03 Resp 18 07/11/18 21:03 BP 170/89 H 07/11/18 21:03 Pulse Ox 100 07/11/18 20:26 - Labs Result Diagrams: 07/11/18 17:05 07/11/18 17:05 Labs: Laboratory Results - last 24 hr 07/11/18 07/11/18 07/11/18 17:05 17:05 17:05 WBC RBC Hgb Hct MCV MCH MCHC RDW Plt Count MPV Gran % Lymph % (Auto) [place] % (Auto) Eos % (Auto) Baso % (Auto) Gran # Lymph # (Auto) [place] # (Auto) Eos # (Auto) Baso # (Auto) PT 12.0 INR 1.05 APTT 36.6 H Sodium 130 L Potassium 5.0 Chloride 97 L Carbon Dioxide 26 Anion Gap 12 BUN 9 Creatinine 0.6 L Est GFR ( Amer) > 60 Est GFR (Non-Af Amer) > 60 Random Glucose 106 Calcium 9.0 Total Bilirubin 0.1 L AST 34 ALT 22 Alkaline Phosphatase 138 H D Lactate Dehydrogenase 364 Total Creatine Kinase < 20 L Troponin I < 0.01 Total Protein 7.4 Albumin 3.7 Globulin 3.6 Albumin/Globulin Ratio 1.0 L Urine Color Urine Appearance Urine pH Ur Specific [place] Urine Protein Urine Glucose (UA) Urine Ketones Urine Blood Urine Nitrate Urine Bilirubin Urine Urobilinogen Ur Leukocyte Esterase Urine RBC Urine WBC Ur Epithelial Cells Urine Bacteria Blood Type O POSITIVE Antibody Screen Negative Crossmatch See Detail BBK History Checked Patient has bt 07/11/18 07/11/18 17:05 18:21 WBC 12.9 H D RBC 2.59 L Hgb 5.9 L* D Hct 19.7 L* MCV 76.1 L D MCH 22.8 L MCHC 29.9 L RDW 18.4 H Plt Count 499 H MPV 7.9 Gran % 61.9 Lymph % (Auto) 29.6 [place] % (Auto) 5.7 Eos % (Auto) 2.6 Baso % (Auto) 0.2 Gran # 7.97 H Lymph # (Auto) 3.8 H [place] # (Auto) 0.7 H Eos # (Auto) 0.3 Baso # (Auto) 0.02 PT INR APTT Sodium Potassium Chloride Carbon Dioxide Anion Gap BUN Creatinine Est GFR ( Amer) Est GFR (Non-Af Amer) Random Glucose Calcium Total Bilirubin AST ALT Alkaline Phosphatase Lactate Dehydrogenase Total Creatine Kinase Troponin I Total Protein Albumin Globulin Albumin/Globulin Ratio Urine Color Yellow Urine Appearance Clear Urine pH 7.0 Ur Specific [place] 1.020 Urine Protein Trace H Urine Glucose (UA) Negative Urine Ketones Negative Urine Blood Negative Urine Nitrate Negative Urine Bilirubin Negative Urine Urobilinogen 0.2 Ur Leukocyte Esterase Negative Urine RBC 0 - 2 Urine WBC 0 - 2 Ur Epithelial Cells 6 - 8 Urine Bacteria Small Blood Type Antibody Screen Crossmatch BBK History Checked Assessment & Plan - Assessment and Plan (Free Text) Assessment: Assessment: 72 y/o female PMHx HTN, DM2, CAD s/p 2 stents(2016, 2014), HLD, CHERRY, seizure disorder, positional vertigo, iron deficiency anemia, admitted for asymptomatic anemia, Hgb: 5.9 after iron infusion. Plan: Acute on Chronic Fe Deficiency anemia likely 2/2 occult GI bleed vs infectious causes FOBT negative in ED Hgb 5.9, RBC 2.59 Alk Phos 138 Transfused with 2 units of pRBC F/u peripheral smear, parvovirus b19 PCR, reticulocyte count EGD showed Larose's Esophagus in 06/12 Maintain Hgb >7 Hold dual antiplatelet therapy as possible source of bleed Consult Hem - Dr. Brock- recommendations appreciated Consult GI- Dr. Isaac- recommendations appreciated IV fluids D5NS, NPO for possible scope f/u AM cbc, cmp, mg, phos f/u UA and urine cx Monitor hgb in AM after transfusions Hx of CAD s/p 2x stent placement Hold dual antiplatelet therapy for now - possible cause of anemia Consult cardio- Dr. 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 No recent echo on file F/u [id number] Accuchecks PPX Protonix 40 IVP BID SCDs; due to bleed, hold dual anti-platelet therapy due to bleeding risk Patient seen, case reviewed, and plan approved by Dr. Valentin. Sandoval Turner, PGY-1
[2018-07-11] MEDS: Insulin Reg-LOW-Coverage SC SCH (21:38)
[2018-07-11] MEDS: Insulin Detemir 100 units/ml Vial (Levemir) SC SCH (23:33)
[2018-07-12 03:34] VITALS: BMI 36.8
[2018-07-12] MEDS: Dextrose 5%/0.9% NS 1,000 ML IV SCH ×2 (03:35→12:16)
[2018-07-12 06:54] LABS: BASO # 0.02 K/mm3 (0.0-2.0); BASO % 0.1 % (0.0-3.0); EOS # 0.4 (0.0-0.7); EOS % 2.8 % (1.5-5.0); GRAN # 9.37 (1.4-6.5); GRAN % 66.4 % (50.0-68.0); LYMPH # 3.4 (1.2-3.4); LYMPH % 24.2 % (22.0-35.0); MEAN CORPUSCULAR HEMOGLOBIN 24.5 pg (25.0-35.0); MEAN CORPUSCULAR HGB CONC 30.6 g/dl (31.0-37.0); MONO # 0.9 (0.1-0.6); MONO % 6.5 % (1.0-6.0); RBC 3.23 10^6/uL (3.5-6.1); RED CELL DISTRIBUTION WIDTH 18.8 % (11.5-14.5); WHITE BLOOD COUNT 14.1 10^3/ul (4.5-11.0)
[2018-07-12 07:01] LABS: HEMOGLOBIN 7.9 g/dL (12.0-16.0); MEAN CELL VOLUME 79.9 fl (80.0-105.0)
[2018-07-12 07:22] LABS: ALBUMIN 3.4 g/dL (3.0-4.8); ALT/SGPT 27 U/L (7-56); AST/SGOT 34 U/L (14-36); BLOOD UREA NITROGEN 6 mg/dL (7-21); CALCIUM 8.8 mg/dL (8.4-10.5); GFR NON-AFRICAN AMERICAN > 60
--- NOTE | 2018-07-12 07:26 | CP.PCM.CON ---
<Ankur Thorne - Last Filed: 07/12/18 11:17> History of Present Illness - History of Present Illness History of Present Illness: PGY-4 GI Fellow Consult Note Pt is a 72 yo WF with h/o Larose's, Fe def anemia (unclear cause), HCV Ab+, HTN, DM2, HLD, CAD s/p stent (last 2016), seizure disorder who was sent in by PCP due to low Hgb. She had recently resumed her iron transfusions when routine lab check reveal a Hgb of 5.9 (from ~9 prior). She denied any CP, SOB, Abd pain, N/V/D, melena, hematochezia, weight loss, dysphagia. She states that she has had some intermittent dizzy spells which may have been related to anemia of vertigo which she also has a history of. In the ED, she was founf to be hemoccult negative, subsequently admitted for further evaluation and pRBC transfusions. 12 point ROS negative other than stated above Endos 06/07/18 EGD: C0M1 Larose's (+IM, - Dysplasia), Fundic galnd polyps, chronic gastritis CSPY: 10 mm Tubular adenoma in sigmoid, diverticulosis throughout, internal hemorrhoids MHx: HTN, DM2, CAD s/p 2 stents, HLD, CHERRY, seizure disorder dx 41yo SurgHx: cardiac stents (one stent 2017, one stent 2014), tubal ligation, partial hysterectomy Meds: Reviewed in [employer] FamHx: no hx of CVA/[place], Mother with ovarian ca, Father with CHF and NonHodgkin's lymphoma SocHx: denies tobacco, EToH, drug use. Ambulates with a walker. 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 [employer] All: Naproxen and divalproex sodium Past Patient History - Infectious Disease Hx of Infectious Diseases: None - Tetanus Immunizations Tetanus Immunization: Unknown - Past Social History Smoking Status: Never Smoked - CARDIAC Hx Hypertension: Yes Hx Pacemaker: No - PULMONARY Hx Respiratory Disorders: No - NEUROLOGICAL Hx Seizures: Yes - HEENT Hx HEENT Problems: No - RENAL Hx Chronic Kidney Disease: No - ENDOCRINE/METABOLIC Hx Diabetes Mellitus Type 1: Yes - HEMATOLOGICAL/ONCOLOGICAL Hx Blood Transfusions: No - INTEGUMENTARY Hx Dermatological Problems: No - MUSCULOSKELETAL/RHEUMATOLOGICAL Hx Musculoskeletal Disorders: Yes - GASTROINTESTINAL Hx Gastroesophageal Reflux: Yes - GENITOURINARY/GYNECOLOGICAL Other/Comment: TUBAL LIGATION, HYSTERECTOMY - PSYCHIATRIC Hx Emotional Abuse: No Hx Physical Abuse: No Hx Substance Use: No - SURGICAL HISTORY Hx Cardiac Catheterization: Yes Hx Coronary Stent: Yes Hx Hysterectomy: Yes - ANESTHESIA Hx Anesthesia Reactions: No Hx Malignant Hyperthermia: No Meds Allergies/Adverse Reactions: Allergies Allergy/AdvReac Type Severity Reaction Status Date / Time naproxen [From Naprosyn] Allergy Severe RASH Verified 07/11/18 16:38 divalproex sodium AdvReac Severe BACTERIAL Verified 07/11/18 16:38 [From Depakote] INFECTION - Medications Medications: Current Medications Atenolol (Tenormin) 50 mg PO DAILY [facility] Gabapentin (Neurontin) 300 mg PO BID [facility]; Protocol Dextrose/Sodium Chloride (Dextrose 5%/0.9% Ns 1000 Ml) 1,000 mls @ 75 mls/hr IV .[id number] [facility] Last Admin: 07/12/18 03:35 Dose: 75 mls/hr Insulin Detemir (Levemir) 10 unit SC HS [facility] Last Admin: 07/11/18 23:33 Dose: 10 unit Insulin Human Regular (Humulin R Low) 0 units SC ACHS [facility]; Protocol Last Admin: 07/11/18 21:38 Dose: Not Given Levetiracetam (Keppra) 500 mg PO BID [facility] Last Admin: 07/11/18 23:33 Dose: 500 mg Lisinopril (Zestril) 10 mg PO DAILY [facility] Meclizine HCl (Antivert) 25 mg PO Q8H PRN PRN Reason: Dizziness Oxcarbazepine (Trileptal) 900 mg PO BID [facility] Last Admin: 07/11/18 23:32 Dose: 900 mg Pantoprazole Sodium (Protonix Inj) 40 mg IVP Q12 [facility] Last Admin: 07/11/18 23:34 Dose: 40 mg Physical Exam - Constitutional Appears: Well, Non-toxic, No Acute Distress Additional comments: Obese - Head Exam Head Exam: ATRAUMATIC, NORMAL INSPECTION - Eye Exam Eye Exam: EOMI. absent: Conjunctival injection, Scleral icterus - ENT Exam ENT Exam: Mucous Membranes Moist, Normal Exam, Normal External Ear Exam. abse nt: Mucous Membranes Dry - Respiratory Exam Respiratory Exam: Clear to Auscultation Bilateral, Respiratory Distress, NORMAL BREATHING PATTERN. absent: Accessory Muscle Use - Cardiovascular Exam Cardiovascular Exam: REGULAR RHYTHM, RRR - GI/Abdominal Exam GI & Abdominal Exam: Normal Bowel Sounds, Soft. absent: Bruit, Diminished Bowel Sounds, Distended, Firm, Guarding, Hernia, Mass, Organomegaly, Pulsatile Mass, Rebound, Rigid, Tenderness - Rectal Exam Rectal Exam: Deferred - Extremities Exam Extremities exam: Positive for: normal inspection, pedal edema (bilaterally, trace) - Neurological Exam Neurological exam: Alert, CN II-XII Intact, Oriented x3 - Psychiatric Exam Psychiatric exam: Normal Affect, Normal Mood - Skin Skin Exam: Normal Color, Warm Results - Vital Signs Recent Vital Signs: Last Vital Signs Temp 98 F 07/12/18 05:50 Pulse 98 H 07/12/18 05:50 Resp 20 07/12/18 05:50 BP 156/82 H 07/12/18 05:50 Pulse Ox 95 07/12/18 05:50 - Labs Result Diagrams: 07/12/18 05:30 07/12/18 05:30 Labs: Laboratory Results - last 24 hr 07/11/18 07/11/18 07/11/18 17:05 17:05 17:05 WBC RBC Hgb Hct MCV MCH MCHC RDW Plt Count MPV Gran % Lymph % (Auto) [place] % (Auto) Eos % (Auto) Baso % (Auto) Gran # Lymph # (Auto) [place] # (Auto) Eos # (Auto) Baso # (Auto) Retic Count PT 12.0 INR 1.05 APTT 36.6 H Sodium 130 L Potassium 5.0 Chloride 97 L Carbon Dioxide 26 Anion Gap 12 BUN 9 Creatinine 0.6 L Est GFR ( Amer) > 60 Est GFR (Non-Af Amer) > 60 POC Glucose (mg/dL) Random Glucose 106 Serum Osmolality Calcium 9.0 Total Bilirubin 0.1 L AST 34 ALT 22 Alkaline Phosphatase 138 H D Lactate Dehydrogenase 364 Total Creatine Kinase < 20 L Troponin I < 0.01 Total Protein 7.4 Albumin 3.7 Globulin 3.6 Albumin/Globulin Ratio 1.0 L Urine Color Urine Appearance Urine pH Ur Specific [place] Urine Protein Urine Glucose (UA) Urine Ketones Urine Blood Urine Nitrate Urine Bilirubin Urine Urobilinogen Ur Leukocyte Esterase Urine RBC Urine WBC Ur Epithelial Cells Urine Bacteria Blood Type O POSITIVE Antibody Screen Negative Crossmatch See Detail BBK History Checked Patient has bt 10/17/18 10/17/18 10/17/18 17:05 18:21 21:00 WBC 12.9 H D RBC 2.59 L Hgb 5.9 L* D Hct 19.7 L* MCV 76.1 L D MCH 22.8 L MCHC 29.9 L RDW 18.4 H Plt Count 499 H MPV 7.9 Gran % 61.9 Lymph % (Auto) 29.6 [place] % (Auto) 5.7 Eos % (Auto) 2.6 Baso % (Auto) 0.2 Gran # 7.97 H Lymph # (Auto) 3.8 H [place] # (Auto) 0.7 H Eos # (Auto) 0.3 Baso # (Auto) 0.02 Retic Count 3.35 H PT INR APTT Sodium Potassium Chloride Carbon Dioxide Anion Gap BUN Creatinine Est GFR ( Amer) Est GFR (Non-Af Amer) POC Glucose (mg/dL) Random Glucose Serum Osmolality Calcium Total Bilirubin AST ALT Alkaline Phosphatase Lactate Dehydrogenase Total Creatine Kinase Troponin I Total Protein Albumin Globulin Albumin/Globulin Ratio Urine Color Yellow Urine Appearance Clear Urine pH 7.0 Ur Specific [place] 1.020 Urine Protein Trace H Urine Glucose (UA) Negative Urine Ketones Negative Urine Blood Negative Urine Nitrate Negative Urine Bilirubin Negative Urine Urobilinogen 0.2 Ur Leukocyte Esterase Negative Urine RBC 0 - 2 Urine WBC 0 - 2 Ur Epithelial Cells 6 - 8 Urine Bacteria Small Blood Type Antibody Screen Crossmatch BBK History Checked 07/11/18 07/11/18 07/12/18 21:15 21:33 05:30 WBC 14.1 H RBC 3.23 L Hgb 7.9 L D Hct 25.8 L MCV 79.9 L D MCH 24.5 L MCHC 30.6 L RDW 18.8 H Plt Count 432 MPV 8.0 Gran % 66.4 Lymph % (Auto) 24.2 [place] % (Auto) 6.5 H Eos % (Auto) 2.8 Baso % (Auto) 0.1 Gran # 9.37 H Lymph # (Auto) 3.4 [place] # (Auto) 0.9 H Eos # (Auto) 0.4 Baso # (Auto) 0.02 Retic Count PT INR APTT Sodium Potassium Chloride Carbon Dioxide Anion Gap BUN Creatinine Est GFR ( Amer) Est GFR (Non-Af Amer) POC Glucose (mg/dL) 115 H Random Glucose Serum Osmolality 273 Calcium Total Bilirubin AST ALT Alkaline Phosphatase Lactate Dehydrogenase Total Creatine Kinase Troponin I Total Protein Albumin Globulin Albumin/Globulin Ratio Urine Color Urine Appearance Urine pH Ur Specific [place] Urine Protein Urine Glucose (UA) Urine Ketones Urine Blood Urine Nitrate Urine Bilirubin Urine Urobilinogen Ur Leukocyte Esterase Urine RBC Urine WBC Ur Epithelial Cells Urine Bacteria Blood Type Antibody Screen Crossmatch BBK History Checked Assessment & Plan - Assessment and Plan (Free Text) Assessment: 72 yo WF with h/o Fe def anemia sent in by PCP for low Hgb. # Acute on Chronic Microcytic Anemia: Suspect related to occult small bowel source. Recent EGD+CSPY on 06/07/18 without clear source. Diverticulosis seen though and can bleed but usually hematochezia is seen. Hemoccult negative in ED, ruling out active bleeding. Hgb appropriately responded from 5.9 -> 7.9 after 2 units PRBCs. 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 On Omeprazole 20 mg QD # Sigmoid tubular adenoma: 10 mm. s/p resection 06/07/18. Due for repeat CSPY in 2020 given TA greater than or equal to 10 mm. Plan: - CT Abd+Pelvix with PO+IV constrast --- If negative will consider push enteroscopy tomorrow - Check FOBT - Agree with PRBC transfusion - Monitor Hgb - Cont with Hematology f/u - Outpatient video capsule endoscopy if above all unrevealing Pt seen and examined with Dr. Isaac; see attestation for further recs/ changes. <Judy Isaac V - Last Filed: 07/15/18 23:41> Meds - Medications Medications: Current Medications Acetaminophen (Tylenol 325mg Tab) 650 mg PO Q6H PRN PRN Reason: Headache Last Admin: 07/12/18 09:55 Dose: 650 mg Atenolol (Tenormin) 50 mg PO DAILY [facility] Last Admin: 07/12/18 09:45 Dose: 50 mg Gabapentin (Neurontin) 300 mg PO BID [facility]; Protocol Last Admin: 07/12/18 17:18 Dose: 300 mg Insulin Detemir (Levemir) 10 unit SC HS [facility] Last Admin: 07/12/18 21:35 Dose: 10 unit Insulin Human Regular (Humulin R Low) 0 units SC ACHS [facility]; Protocol Last Admin: 07/12/18 21:43 Dose: Not Given Levetiracetam (Keppra) 500 mg PO BID [facility] Last Admin: 07/12/18 17:18 Dose: 500 mg Lisinopril (Zestril) 10 mg PO DAILY [facility] Last Admin: 07/12/18 09:45 Dose: 10 mg Meclizine HCl (Antivert) 25 mg PO Q8H PRN PRN Reason: Dizziness Oxcarbazepine (Trileptal) 900 mg PO BID [facility] Last Admin: 07/12/18 17:18 Dose: 900 mg Pantoprazole Sodium (Protonix Inj) 40 mg IVP Q12 [facility] Last Admin: 07/12/18 21:32 Dose: 40 mg Results - Vital Signs Recent Vital Signs: Last Vital Signs Temp 98.1 F 07/12/18 16:58 Pulse 87 07/12/18 22:00 Resp 18 07/12/18 16:58 BP 135/71 07/12/18 16:58 Pulse Ox 95 07/12/18 05:50 - Labs Result Diagrams: 07/15/18 05:00 07/15/18 11:00 Labs: Laboratory Results - last 24 hr 07/11/18 07/12/18 07/12/18 17:05 05:30 05:30 WBC 14.1 H RBC 3.23 L Hgb 7.9 L D Hct 25.8 L MCV 79.9 L D MCH 24.5 L MCHC 30.6 L RDW 18.8 H Plt Count 432 MPV 8.0 Gran % 66.4 Lymph % (Auto) 24.2 [place] % (Auto) 6.5 H Eos % (Auto) 2.8 Baso % (Auto) 0.1 Gran # 9.37 H Lymph # (Auto) 3.4 [place] # (Auto) 0.9 H Eos # (Auto) 0.4 Baso # (Auto) 0.02 Sodium Potassium Chloride Carbon Dioxide Anion Gap BUN Creatinine Est GFR ( Amer) Est GFR (Non-Af Amer) POC Glucose (mg/dL) Random Glucose Hemoglobin A1c 6.0 Calcium Phosphorus Magnesium Total Bilirubin AST ALT Alkaline Phosphatase Total Protein Albumin Globulin Albumin/Globulin Ratio Blood Type O POSITIVE Antibody Screen Negative Crossmatch See Detail BBK History Checked Patient has bt 10/18/18 10/18/18 10/18/18 05:30 07:30 11:16 WBC RBC Hgb Hct MCV MCH MCHC RDW Plt Count MPV Gran % Lymph % (Auto) [place] % (Auto) Eos % (Auto) Baso % (Auto) Gran # Lymph # (Auto) [place] # (Auto) Eos # (Auto) Baso # (Auto) Sodium 130 L Potassium 4.2 Chloride 95 L Carbon Dioxide 27 Anion Gap 12 BUN 6 L Creatinine 0.5 L Est GFR ( Amer) > 60 Est GFR (Non-Af Amer) > 60 POC Glucose (mg/dL) 103 113 H Random Glucose 113 H Hemoglobin A1c Calcium 8.8 Phosphorus 3.8 Magnesium 1.9 Total Bilirubin 0.2 AST 34 ALT 27 Alkaline Phosphatase 134 H Total Protein 7.0 Albumin 3.4 Globulin 3.5 Albumin/Globulin Ratio 1.0 L Blood Type Antibody Screen Crossmatch BBK History Checked 07/12/18 07/12/18 07/12/18 15:30 16:07 21:39 WBC 16.5 H RBC 3.26 L Hgb 8.1 L Hct 25.9 L MCV 79.4 L MCH 24.8 L MCHC 31.3 RDW 18.7 H Plt Count 435 MPV 7.9 Gran % 73.2 H Lymph % (Auto) 19.4 L [place] % (Auto) 4.7 Eos % (Auto) 2.5 Baso % (Auto) 0.2 Gran # 12.05 H Lymph # (Auto) 3.2 [place] # (Auto) 0.8 H Eos # (Auto) 0.4 Baso # (Auto) 0.03 Sodium Potassium Chloride Carbon Dioxide Anion Gap BUN Creatinine Est GFR ( Amer) Est GFR (Non-Af Amer) POC Glucose (mg/dL) 143 H 115 H Random Glucose Hemoglobin A1c Calcium Phosphorus Magnesium Total Bilirubin AST ALT Alkaline Phosphatase Total Protein Albumin Globulin Albumin/Globulin Ratio Blood Type Antibody Screen Crossmatch BBK History Checked Attending/Attestation - Attestation I have personally seen and examined this patient.: Yes I have fully participated in the care of the patient.: Yes I have reviewed all pertinent clinical information: Yes Notes (Text): This is an addendum to GI consult report dictated by the GI Fellow.The patient was seen and examined earlier. Medical records, lab studies, imagings were reviewed. Last 24 hours events reviewed. 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
[2018-07-12] MEDS: Insulin Reg-LOW-Coverage SC SCH ×4 (08:01→21:43)
--- NOTE | 2018-07-12 10:06 | CP.PCM.CON ---
History of Present Illness - History of Present Illness History of Present Illness: Awake, alert, denies chest pain,denies shortness of breath Reason for consultation: Cardiac evaluation of coronary artery disease, history of coronary stents Brief history of present illness: A 72 year old female who was sent to the ER by Dr. Brock due to low hemoglobin and hematocrit. She was supposed to have iron infusion. History of hypertension, diabetes mellitus , hyperlipidemia,iron deficiency anemia, on iron infusions,seizure disorder,tubal ligation, partial hysterectomy, coronary artery disease with stents.Recent colonoscopy/endoscopy. Seen and examined by me and Dr. Kerr Review of Systems - Review of Systems All systems: reviewed and no additional remarkable complaints except Review of Systems: as per HPI Past Patient History - Infectious Disease Hx of Infectious Diseases: None - Tetanus Immunizations Tetanus Immunization: Unknown - Past Social History Smoking Status: Never Smoked - CARDIAC Hx Hypertension: Yes Hx Pacemaker: No - PULMONARY Hx Respiratory Disorders: No - NEUROLOGICAL Hx Seizures: Yes - HEENT Hx HEENT Problems: No - RENAL Hx Chronic Kidney Disease: No - ENDOCRINE/METABOLIC Hx Diabetes Mellitus Type 1: Yes - HEMATOLOGICAL/ONCOLOGICAL Hx Blood Transfusions: No - INTEGUMENTARY Hx Dermatological Problems: No - MUSCULOSKELETAL/RHEUMATOLOGICAL Hx Musculoskeletal Disorders: Yes - GASTROINTESTINAL Hx Gastroesophageal Reflux: Yes - GENITOURINARY/GYNECOLOGICAL Other/Comment: TUBAL LIGATION, HYSTERECTOMY - PSYCHIATRIC Hx Emotional Abuse: No Hx Physical Abuse: No Hx Substance Use: No - SURGICAL HISTORY Hx Cardiac Catheterization: Yes Hx Coronary Stent: Yes Hx Hysterectomy: Yes - ANESTHESIA Hx Anesthesia Reactions: No Hx Malignant Hyperthermia: No Meds Allergies/Adverse Reactions: Allergies Allergy/AdvReac Type Severity Reaction Status Date / Time naproxen [From Naprosyn] Allergy Severe RASH Verified 07/11/18 16:38 divalproex sodium AdvReac Severe BACTERIAL Verified 07/11/18 16:38 [From Depakote] INFECTION - Medications Medications: Current Medications Acetaminophen (Tylenol 325mg Tab) 650 mg PO Q6H PRN PRN Reason: Headache Last Admin: 07/12/18 09:55 Dose: 650 mg Atenolol (Tenormin) 50 mg PO DAILY [facility] Last Admin: 07/12/18 09:45 Dose: 50 mg Gabapentin (Neurontin) 300 mg PO BID [facility]; Protocol Last Admin: 07/12/18 09:45 Dose: 300 mg Dextrose/Sodium Chloride (Dextrose 5%/0.9% Ns 1000 Ml) 1,000 mls @ 75 mls/hr IV .[id number] [facility] Last Admin: 07/12/18 03:35 Dose: 75 mls/hr Insulin Detemir (Levemir) 10 unit SC HS [facility] Last Admin: 07/11/18 23:33 Dose: 10 unit Insulin Human Regular (Humulin R Low) [address] [facility]; Protocol Last Admin: 07/12/18 08:01 Dose: Not Given Levetiracetam (Keppra) 500 mg PO BID [facility] Last Admin: 07/12/18 09:45 Dose: 500 mg Lisinopril (Zestril) 10 mg PO DAILY [facility] Last Admin: 07/12/18 09:45 Dose: 10 mg Meclizine HCl (Antivert) 25 mg PO Q8H PRN PRN Reason: Dizziness Oxcarbazepine (Trileptal) 900 mg PO BID [facility] Last Admin: 07/12/18 09:45 Dose: 900 mg Pantoprazole Sodium (Protonix Inj) 40 mg IVP Q12 [facility] Last Admin: 07/12/18 09:46 Dose: 40 mg Physical Exam - Constitutional Appears: Non-toxic, No Acute Distress - Head Exam Head Exam: NORMAL INSPECTION, NORMOCEPHALIC - Eye Exam Eye Exam: Normal appearance Pupil Exam: NORMAL ACCOMODATION - ENT Exam ENT Exam: Mucous Membranes Moist, Normal Exam - Respiratory Exam Respiratory Exam: Clear to Auscultation Bilateral, NORMAL BREATHING PATTERN - Cardiovascular Exam Cardiovascular Exam: REGULAR RHYTHM, +S1, +S2 Additional comments: Telemetry NSR 90's No JVD, denies chest pain or shortness of breath No murmur - GI/Abdominal Exam GI & Abdominal Exam: Normal Bowel Sounds, Soft Additional comments: denies nausea, denies vomiting - Extremities Exam Extremities exam: Positive for: full ROM, normal capillary refill - Neurological Exam Neurological exam: Alert, Oriented x3 - Psychiatric Exam Psychiatric exam: Normal Affect, Normal Mood - Skin Skin Exam: Dry, Normal Color, Warm Results - Vital Signs Recent Vital Signs: Last Vital Signs Temp 98 F 07/12/18 05:50 Pulse 95 H 07/12/18 09:45 Resp 20 07/12/18 05:50 BP 147/81 07/12/18 09:45 Pulse Ox 95 07/12/18 05:50 - Labs Result Diagrams: 07/12/18 05:30 07/12/18 05:30 Labs: Laboratory Results - last 24 hr 07/11/18 07/11/18 07/11/18 17:05 17:05 17:05 WBC RBC Hgb Hct MCV MCH MCHC RDW Plt Count MPV Gran % Lymph % (Auto) [place] % (Auto) Eos % (Auto) Baso % (Auto) Gran # Lymph # (Auto) [place] # (Auto) Eos # (Auto) Baso # (Auto) Retic Count PT 12.0 INR 1.05 APTT 36.6 H Sodium 130 L Potassium 5.0 Chloride 97 L Carbon Dioxide 26 Anion Gap 12 BUN 9 Creatinine 0.6 L Est GFR ( Amer) > 60 Est GFR (Non-Af Amer) > 60 POC Glucose (mg/dL) Random Glucose 106 Serum Osmolality Calcium 9.0 Phosphorus Magnesium Total Bilirubin 0.1 L AST 34 ALT 22 Alkaline Phosphatase 138 H D Lactate Dehydrogenase 364 Total Creatine Kinase < 20 L Troponin I < 0.01 Total Protein 7.4 Albumin 3.7 Globulin 3.6 Albumin/Globulin Ratio 1.0 L Urine Color Urine Appearance Urine pH Ur Specific Wilcox Urine Protein Urine Glucose (UA) Urine Ketones Urine Blood Urine Nitrate Urine Bilirubin Urine Urobilinogen Ur Leukocyte Esterase Urine RBC Urine WBC Ur Epithelial Cells Urine Bacteria Blood Type O POSITIVE Antibody Screen Negative Crossmatch See Detail BBK History Checked Patient has bt 07/11/18 07/11/18 07/11/18 17:05 18:21 21:00 WBC 12.9 H D RBC 2.59 L Hgb 5.9 L* D Hct 19.7 L* MCV 76.1 L D MCH 22.8 L MCHC 29.9 L RDW 18.4 H Plt Count 499 H MPV 7.9 Gran % 61.9 Lymph % (Auto) 29.6 [place] % (Auto) 5.7 Eos % (Auto) 2.6 Baso % (Auto) 0.2 Gran # 7.97 H Lymph # (Auto) 3.8 H [place] # (Auto) 0.7 H Eos # (Auto) 0.3 Baso # (Auto) 0.02 Retic Count 3.35 H PT INR APTT Sodium Potassium Chloride Carbon Dioxide Anion Gap BUN Creatinine Est GFR ( Amer) Est GFR (Non-Af Amer) POC Glucose (mg/dL) Random Glucose Serum Osmolality Calcium Phosphorus Magnesium Total Bilirubin AST ALT Alkaline Phosphatase Lactate Dehydrogenase Total Creatine Kinase Troponin I Total Protein Albumin Globulin Albumin/Globulin Ratio Urine Color Yellow Urine Appearance Clear Urine pH 7.0 Ur Specific [place] 1.020 Urine Protein Trace H Urine Glucose (UA) Negative Urine Ketones Negative Urine Blood Negative Urine Nitrate Negative Urine Bilirubin Negative Urine Urobilinogen 0.2 Ur Leukocyte Esterase Negative Urine RBC 0 - 2 Urine WBC 0 - 2 Ur Epithelial Cells 6 - 8 Urine Bacteria Small Blood Type Antibody Screen Crossmatch BBK History Checked 07/11/18 07/11/18 07/12/18 21:15 21:33 05:30 WBC 14.1 H RBC 3.23 L Hgb 7.9 L D Hct 25.8 L MCV 79.9 L D MCH 24.5 L MCHC 30.6 L RDW 18.8 H Plt Count 432 MPV 8.0 Gran % 66.4 Lymph % (Auto) 24.2 [place] % (Auto) 6.5 H Eos % (Auto) 2.8 Baso % (Auto) 0.1 Gran # 9.37 H Lymph # (Auto) 3.4 [place] # (Auto) 0.9 H Eos # (Auto) 0.4 Baso # (Auto) 0.02 Retic Count PT INR APTT Sodium Potassium Chloride Carbon Dioxide Anion Gap BUN Creatinine Est GFR ( Amer) Est GFR (Non-Af Amer) POC Glucose (mg/dL) 115 H Random Glucose Serum Osmolality 273 Calcium Phosphorus Magnesium Total Bilirubin AST ALT Alkaline Phosphatase Lactate Dehydrogenase Total Creatine Kinase Troponin I Total Protein Albumin Globulin Albumin/Globulin Ratio Urine Color Urine Appearance Urine pH Ur Specific Wilcox Urine Protein Urine Glucose (UA) Urine Ketones Urine Blood Urine Nitrate Urine Bilirubin Urine Urobilinogen Ur Leukocyte Esterase Urine RBC Urine WBC Ur Epithelial Cells Urine Bacteria Blood Type Antibody Screen Crossmatch BBK History Checked 07/12/18 07/12/18 05:30 07:30 WBC RBC Hgb Hct MCV MCH MCHC RDW Plt Count MPV Gran % Lymph % (Auto) [place] % (Auto) Eos % (Auto) Baso % (Auto) Gran # Lymph # (Auto) [place] # (Auto) Eos # (Auto) Baso # (Auto) Retic Count PT INR APTT Sodium 130 L Potassium 4.2 Chloride 95 L Carbon Dioxide 27 Anion Gap 12 BUN 6 L Creatinine 0.5 L Est GFR ( Amer) > 60 Est GFR (Non-Af Amer) > 60 POC Glucose (mg/dL) 103 Random Glucose 113 H Serum Osmolality Calcium 8.8 Phosphorus 3.8 Magnesium 1.9 Total Bilirubin 0.2 AST 34 ALT 27 Alkaline Phosphatase 134 H Lactate Dehydrogenase Total Creatine Kinase Troponin I Total Protein 7.0 Albumin 3.4 Globulin 3.5 Albumin/Globulin Ratio 1.0 L Urine Color Urine Appearance Urine pH Ur Specific Wilcox Urine Protein Urine Glucose (UA) Urine Ketones Urine Blood Urine Nitrate Urine Bilirubin Urine Urobilinogen Ur Leukocyte Esterase Urine RBC Urine WBC Ur Epithelial Cells Urine Bacteria Blood Type Antibody Screen Crossmatch BBK History Checked Assessment & Plan - Assessment and Plan (Free Text) Assessment: A 72 year old female who was sent to the ER by Dr. Brock due to low hemoglobin and hematocrit. She was supposed to have iron infusion. History of hypertension, diabetes mellitus type 2,dizziness (on antivert), hyperlipidemia,iron deficiency anemia, on iron infusions,seizure disorder,tubal ligation, partial hy sterectomy, coronary artery disease with stents of the circumflex (2013 and 2016). Hgb/Hematocrit on admission 5.9/19.7. transfused 2 unit PRBC. Review of previous cardiac work up at [facility] [place]: 02/27/17- Cardiac catheterization with stent Single vessel CAD of the Proximal and mid Circumflex ( in stent re-stenosis previous stent 03/31/2014) Single long stent LOBITO to proximal and distal circumflex LVEF 55-60% 02/06/17- Stress test done- abnormal, positve for ischemia requiring cardiac catheterization on 03/09/17. Plan: Denies chest pain Hold Aspirin and Plavix for now until hemoglobin and hematocrit stabilizes Will reevaluate if ASA and Plavix needs to continue (its been almost a year since last PTCA) Heart rate and blood pressure stable Status post transfusion of 2 units PRBC H/H today 7.9/25.8 Consider Transfusing below 8, to prevent cardiac compromise On Tenormin 50 mg daily, keprra 500 mg BID, Lisinopril 10 mg daily, Antivert 25 mg every 8 hours. Protonix 40 mg IV every 12 hours Continue current treatment Continue current medications Chart reviewed Will follow up Further recommendations during hospital course Plan and treatment discussed with Dr. Kerr Thank you Dr. Monzon for the opportunity of taking care of Ms. Gutierrez Katie. - Date & Time Date: 07/12/18 Time: 06:15
--- NOTE | 2018-07-12 10:26 | CARD ---
APPROVED REPORT Date of service: 07/11/2018 EKG Measurement Heart [id number] <Conclusion> Normal sinus rhythm Left axis deviation Cannot rule out Anterior infarct, age undetermined Abnormal ECG
[2018-07-12] MEDS ORDERED: Barium Sulfate Susp 2.1% w/v, 2.0% w/w 450 mL Bottle PO ONE (10:47)
[2018-07-12] MEDS ORDERED: Iohexol 350 MG/100 ML VIAL ONE (13:29)
--- NOTE | 2018-07-12 14:21 | CT ---
Date of service: 07/12/2018 PROCEDURE: CT Abdomen and Pelvis with contrast HISTORY: anemia, unknown cause. EGD+CSPY negative COMPARISON: None. TECHNIQUE: Intravenous contrast dose: 100 cc Omnipaque 300 Radiation dose: Total exam DLP = 115.70 mGy-cm. This CT exam was performed using one or more of the following dose reduction techniques: Automated exposure control, adjustment of the mA and/or kV according to patient size, and/or use of iterative reconstruction technique. FINDINGS: LOWER THORAX: Unremarkable. LIVER: Unremarkable. No gross lesion or ductal dilatation. GALLBLADDER AND BILE DUCTS: Unremarkable. PANCREAS: Unremarkable. No gross lesion or ductal dilatation. SPLEEN: Unremarkable. ADRENALS: Unremarkable. No mass. KIDNEYS AND URETERS: Unremarkable. No hydronephrosis. No solid mass. VASCULATURE: Unremarkable. No aortic aneurysm. Minimal atherosclerotic calcification or mural plaque present. BOWEL: Constipation without fecal impaction or obstruction. APPENDIX: No abnormalities to suggest acute appendicitis. No right lower quadrant inflammatory processes identified. PERITONEUM: Unremarkable. No free fluid. No free air. LYMPH NODES: Unremarkable. No enlarged lymph nodes. BLADDER: Unremarkable. REPRODUCTIVE: Prior hysterectomy. BONES: No acute fracture. OTHER FINDINGS: Abdominal pelvic cellulitis anterior abdominal wall. Mild anasarca present. IMPRESSION: No significant or acute findings to account for/ related to the clinical presentation. Additional benign and/or incidental findings described above.
--- NOTE | 2018-07-12 14:57 | CP.PCM.PN ---
Addendum entered and electronically signed by Wes Germain DO 07/12/18 17:00: CT abd/pelvis- showed abdominal pelvic cellulitits abdominal wall with mild anasarca present; No significant or acute findings to account for related presentation Original Note: <Wes Germain - Last Filed: 07/12/18 14:53> Subjective - Date & Time of Evaluation Date of Evaluation: 07/12/18 Time of Evaluation: 09:50 - Subjective Subjective: PGY-1 Medicine Progress Note for Dr. Monzon's service Patient seen and examined at bedside. Patient offers no acute complaints. Patient denies fevers, chills, melena, hematochezia, hematuria, chest pain, sob, n/v, constipation or diarrhea, weakness, dizziness, SMILEY. Objective - Vital Signs/Intake and Output Vital Signs (last 24 hours): Temp Pulse Resp BP Pulse Ox 98.1 F 89 20 146/76 95 07/12/18 12:00 07/12/18 12:00 07/12/18 12:00 07/12/18 12:00 07/12/18 05:50 Intake and Output: 07/12/18 07/12/18 06:59 18:59 Intake Total 1000 Output Total 0 Balance 1000 - Medications Medications: Current Medications Acetaminophen (Tylenol 325mg Tab) 650 mg PO Q6H PRN PRN Reason: Headache Last Admin: 07/12/18 09:55 Dose: 650 mg Atenolol (Tenormin) 50 mg PO DAILY [facility] Last Admin: 07/12/18 09:45 Dose: 50 mg Gabapentin (Neurontin) 300 mg PO BID [facility]; Protocol Last Admin: 07/12/18 09:45 Dose: 300 mg Insulin Detemir (Levemir) 10 unit SC HS [facility] Last Admin: 07/11/18 23:33 Dose: 10 unit Insulin Human Regular (Humulin R Low) 0 units SC ACHS [facility]; Protocol Last Admin: 07/12/18 12:16 Dose: Not Given Levetiracetam (Keppra) 500 mg PO BID [facility] Last Admin: 07/12/18 09:45 Dose: 500 mg Lisinopril (Zestril) 10 mg PO DAILY [facility] Last Admin: 07/12/18 09:45 Dose: 10 mg Meclizine HCl (Antivert) 25 mg PO Q8H PRN PRN Reason: Dizziness Oxcarbazepine (Trileptal) 900 mg PO BID [facility] Last Admin: 07/12/18 09:45 Dose: 900 mg Pantoprazole Sodium (Protonix Inj) 40 mg IVP Q12 [facility] Last Admin: 07/12/18 09:46 Dose: 40 mg - Labs Labs: 07/12/18 05:30 07/12/18 05:30 PT 12.0 SECONDS (9.4-12.5) 07/11/18 17:05 INR 1.05 07/11/18 17:05 APTT 36.6 Seconds (25.1-36.5) H 07/11/18 17:05 - Constitutional Appears: Non-toxic, No Acute Distress - Head Exam Head Exam: NORMAL INSPECTION, NORMOCEPHALIC - Eye Exam Eye Exam: EOMI, Normal appearance. absent: Nystagmus, Scleral icterus - ENT Exam ENT Exam: Mucous Membranes Moist - Respiratory Exam Respiratory Exam: Clear to Ausculation Bilateral, NORMAL BREATHING PATTERN. absent: Rales, Rhonchi, Wheezes, Respiratory Distress - Cardiovascular Exam Cardiovascular Exam: REGULAR RHYTHM, +S1, +S2 - GI/Abdominal Exam GI & Abdominal Exam: Soft, Normal Bowel Sounds. absent: Distended, Firm, Guarding, Tenderness - Extremities Exam Extremities Exam: Normal Inspection. absent: Calf Tenderness, Pedal Edema - Neurological Exam Neurological Exam: Alert, Awake, Oriented x3 - Psychiatric Exam Psychiatric exam: Normal Affect, Normal Mood - Skin Skin Exam: Intact, Normal Color Assessment and Plan - Assessment and Plan (Free Text) Assessment: 72 y/o female PMHx HTN, DM2, CAD s/p 2 stents(2016, 2014), HLD, CHERRY, seizure disorder, positional vertigo, iron deficiency anemia, admitted for asymptomatic anemia, Hgb: 5.9 after iron infusion. Plan: Acute on Chronic Fe Deficiency anemia FOBT negative in ED Transfused with 2 units of pRBC EGD showed Larose's Esophagus in 06/12 Hold dual antiplatelet therapy as possible source of bleed Consult Hem - Dr. Brock- recommendations appreciated Consult GI- Dr. Isaac- outpatient video capsule endoscopy as patient had recent EGD/CSPY Repeat BMP; Hemodynamically stable Consider 1 u pRBCs of Hgb not above 8 Hx of CAD s/p 2x stent placement Hold dual antiplatelet therapy for now - possible cause of anemia Consult cardio- Dr. Kerr- recommendations appreciated regarding restarting antiplatelet therapy Dizziness likely secondary to anemia; Resolved with repletion through pRBCs PT/OT- Home with services c/w home Meclizine HTN Lisinopril 10 mg po daily Atenolol 50mg po daily Hyponatremia Asymptomatic; likely 2/2 to fluid repletion Repeat CMP in AM Seizure disorder Keppra 500mg po bid Trileptal 900 mg po bid [facility] Hx of DM Levemir 10 units HS low ISS Accuchecks PPX Protonix 40 IVP BID SCD[facility]; due to bleed, hold dual anti-platelet therapy due to bleeding risk Medical Management discussed with Dr. Monzon PGY-1 Wes Germain <Chris Monzon - Last Filed: 07/14/18 14:41> Objective - Vital Signs/Intake and Output Vital Signs (last 24 hours): Temp Pulse Resp BP Pulse Ox 98 F 98 H 18 165/79 H 94 L 07/14/18 08:43 07/14/18 09:15 07/14/18 08:43 07/14/18 09:15 07/14/18 08:43 Intake and Output: 07/14/18 07/14/18 06:59 18:59 Intake Total 480 Balance 480 - Medications Medications: Current Medications Acetaminophen (Tylenol 325mg Tab) 650 mg PO Q6H PRN PRN Reason: Headache Last Admin: 07/14/18 06:40 Dose: 650 mg Atenolol (Tenormin) 50 mg PO DAILY [facility] Last Admin: 07/14/18 09:15 Dose: 50 mg Docusate Sodium (Colace) 100 mg PO BID [facility] Last Admin: 07/14/18 09:12 Dose: Not Given Gabapentin (Neurontin) 300 mg PO BID [facility]; Protocol Last Admin: 07/14/18 09:15 Dose: 300 mg Dextrose/Sodium Chloride (Dextrose 5%/0.33% Ns 1000 Ml) 500 mls @ 20 mls/hr IV .Q24H [facility] Stop: 07/15/18 13:14 Insulin Detemir (Levemir) 10 unit SC HS [facility] Last Admin: 07/13/18 21:20 Dose: 10 unit Insulin Human Regular (Humulin R Low) 0 units SC ACHS [facility]; Protocol Last Admin: 07/14/18 12:19 Dose: 1 unit Levetiracetam (Keppra) 750 mg PO Q12 [facility] Lisinopril (Zestril) 10 mg PO DAILY [facility] Last Admin: 07/14/18 06:40 Dose: 10 mg Lorazepam (Ativan) 2 mg IVP Q6H [facility]; Protocol PRN Reason: Anxiety Meclizine HCl (Antivert) 25 mg PO Q8H PRN PRN Reason: Dizziness Oxcarbazepine (Trileptal) 900 mg PO BID [facility] Last Admin: 07/14/18 09:15 Dose: 900 mg Pantoprazole Sodium (Protonix Inj) 40 mg IVP Q12 [facility] Last Admin: 07/14/18 09:14 Dose: 40 mg Polyethylene Glycol (Miralax) 17 gm PO BID [facility] Last Admin: 07/14/18 09:13 Dose: Not Given - Labs Labs: 07/14/18 07:00 07/14/18 07:00 PT 12.0 SECONDS (9.4-12.5) 07/11/18 17:05 INR 1.05 07/11/18 17:05 APTT 36.6 Seconds (25.1-36.5) H 07/11/18 17:05 Attending/Attestation - Attestation I have personally seen and examined this patient.: Yes I have fully participated in the care of the patient.: Yes I have reviewed all pertinent clinical information, including history, physical exam and plan: Yes Notes (Text): 07/14/18 14:41 Medical record note made by the resident after discussion with my direction and input after the patient was personally seen and examined by me. I have reviewed the chart and agree that the record accurately reflects by personal performance of the history, physical exam, data review, and medical decision-making, in the course for the patient. I have also personally directed the plan of care.
[2018-07-12 16:07] LABS: BASO # 0.03 K/mm3 (0.0-2.0); BASO % 0.2 % (0.0-3.0); EOS # 0.4 (0.0-0.7); EOS % 2.5 % (1.5-5.0); GRAN # 12.05 (1.4-6.5); GRAN % 73.2 % (50.0-68.0); HEMOGLOBIN 8.1 g/dL (12.0-16.0); LYMPH # 3.2 (1.2-3.4); LYMPH % 19.4 % (22.0-35.0); MEAN CELL VOLUME 79.4 fl (80.0-105.0); MEAN CORPUSCULAR HEMOGLOBIN 24.8 pg (25.0-35.0); MEAN CORPUSCULAR HGB CONC 31.3 g/dl (31.0-37.0); MEAN PLATELET VOLUME 7.9 fl (7.0-11.0); MONO # 0.8 (0.1-0.6); MONO % 4.7 % (1.0-6.0); RBC 3.26 10^6/uL (3.5-6.1); RED CELL DISTRIBUTION WIDTH 18.7 % (11.5-14.5); WHITE BLOOD COUNT 16.5 10^3/ul (4.5-11.0)
[2018-07-12] MEDS: Insulin Detemir 100 units/ml Vial (Levemir) SC SCH (21:35)
--- NOTE | 2018-07-13 06:40 | CP.PCM.PN ---
Subjective - Date & Time of Evaluation Date of Evaluation: 07/13/18 Time of Evaluation: 06:15 - Subjective Subjective: Lying in bed, no distress, Awake, alert, denies chest pain,denies shortness of breath Reason for consultation: Cardiac evaluation of coronary artery disease, history of coronary stents,History of hypertension, diabetes mellitus , hype rlipidemia,iron deficiency anemia, on iron infusions,admitted due to low hemoglobin severe anemia. Seen and examined by me and Dr. Kerr Objective - Vital Signs/Intake and Output Vital Signs (last 24 hours): Temp Pulse Resp BP Pulse Ox 97.8 F 91 H 20 164/85 H 95 07/13/18 06:00 07/13/18 06:00 07/13/18 06:00 07/13/18 06:00 07/13/18 06:00 Intake and Output: 07/12/18 07/13/18 18:59 06:59 Intake Total 1140 360 Output Total 700 Balance 440 360 - Medications Medications: Current Medications Acetaminophen (Tylenol 325mg Tab) 650 mg PO Q6H PRN PRN Reason: Headache Last Admin: 07/13/18 02:00 Dose: 650 mg Atenolol (Tenormin) 50 mg PO DAILY [facility] Last Admin: 07/12/18 09:45 Dose: 50 mg Gabapentin (Neurontin) 300 mg PO BID [facility]; Protocol Last Admin: 07/12/18 17:18 Dose: 300 mg Insulin Detemir (Levemir) 10 unit SC HS [facility] Last Admin: 07/12/18 21:35 Dose: 10 unit Insulin Human Regular (Humulin R Low) 0 units SC ACHS [facility]; Protocol Last Admin: 07/12/18 21:43 Dose: Not Given Levetiracetam (Keppra) 500 mg PO BID [facility] Last Admin: 07/12/18 17:18 Dose: 500 mg Lisinopril (Zestril) 10 mg PO DAILY [facility] Last Admin: 07/12/18 09:45 Dose: 10 mg Meclizine HCl (Antivert) 25 mg PO Q8H PRN PRN Reason: Dizziness Oxcarbazepine (Trileptal) 900 mg PO BID [facility] Last Admin: 07/12/18 17:18 Dose: 900 mg Pantoprazole Sodium (Protonix Inj) 40 mg IVP Q12 [facility] Last Admin: 07/12/18 21:32 Dose: 40 mg - Labs Labs: 07/12/18 15:30 07/12/18 05:30 PT 12.0 SECONDS (9.4-12.5) 07/11/18 17:05 INR 1.05 07/11/18 17:05 APTT 36.6 Seconds (25.1-36.5) H 07/11/18 17:05 - Constitutional Appears: Non-toxic, No Acute Distress - Head Exam Head Exam: NORMAL INSPECTION, NORMOCEPHALIC - Eye Exam Eye Exam: Normal appearance Pupil Exam: NORMAL ACCOMODATION - ENT Exam ENT Exam: Mucous Membranes Moist - Respiratory Exam Respiratory Exam: Clear to Ausculation Bilateral, NORMAL BREATHING PATTERN - Cardiovascular Exam Cardiovascular Exam: REGULAR RHYTHM, +S1, +S2 Additional comments: Telemetry NSR 70's - GI/Abdominal Exam GI & Abdominal Exam: Soft, Normal Bowel Sounds - Extremities Exam Extremities Exam: Full ROM, Normal Capillary Refill - Neurological Exam Neurological Exam: Alert, Awake, Oriented x3 - Psychiatric Exam Psychiatric exam: Normal Affect, Normal Mood - Skin Skin Exam: Dry, Normal Color, Warm Assessment and Plan - Assessment and Plan (Free Text) Assessment: A 72 year old female who was sent to the ER by Dr. Brock due to low hemoglobin and hematocrit. She was supposed to have iron infusion. History of hypertension, diabetes mellitus type 2,dizziness (on antivert), hyperlipidemia,iron deficiency anemia, on iron infusions,seizure disorder,tubal ligation, partial hysterectomy, coronary artery disease with stents of the circumflex (2013 and 2016). Hgb/Hematocrit on admission 5.9/19.7. transfused 2 unit PRBC.Hold Aspirin and Plavix for now until hemoglobin and hematocrit stabilizes,Will reevaluate if ASA and Plavix needs to continue (its been almost a year since last PTCA). Review of previous cardiac work up at [facility] [place]: 02/27/17- Cardiac catheterization with stent Single vessel CAD of the Proximal and mid Circumflex ( in stent re-stenosis previous stent 03/31/2014) Single long stent LOBITO to proximal and distal circumflex LVEF 55-60% 02/06/17- Stress test done- abnormal, positve for ischemia requiring cardiac catheterization on 03/09/17. Plan: No distress, Denies chest pain Heart rate and blood pressure stable Status post transfusion of 2 units PRBC Stable H/H today 8.4/26.9 On Tenormin 50 mg daily, keprra 500 mg BID, Lisinopril 10 mg daily, Antivert 25 mg every 8 hours. Protonix 40 mg IV every 12 hours Continue current treatment Continue current medications Chart reviewed Will follow up Plan and treatment discussed with Dr. Kerr
[2018-07-13 06:45] LABS: BASO # 0.03 K/mm3 (0.0-2.0); BASO % 0.2 % (0.0-3.0); EOS # 0.5 (0.0-0.7); EOS % 3.2 % (1.5-5.0); GRAN # 10.93 (1.4-6.5); GRAN % 67.1 % (50.0-68.0); HEMOGLOBIN 8.4 g/dL (12.0-16.0); LYMPH # 3.8 (1.2-3.4); LYMPH % 23.2 % (22.0-35.0); MEAN CELL VOLUME 78.9 fl (80.0-105.0); MEAN CORPUSCULAR HEMOGLOBIN 24.6 pg (25.0-35.0); MEAN CORPUSCULAR HGB CONC 31.2 g/dl (31.0-37.0); MEAN PLATELET VOLUME 7.9 fl (7.0-11.0); MONO % 6.3 % (1.0-6.0); RBC 3.41 10^6/uL (3.5-6.1); RED CELL DISTRIBUTION WIDTH 18.9 % (11.5-14.5); WHITE BLOOD COUNT 16.3 10^3/ul (4.5-11.0)
[2018-07-13 07:36] LABS: ALB/GLOB RATIO 0.9 (1.1-1.8); ALBUMIN 3.4 g/dL (3.0-4.8); ALT/SGPT 22 U/L (7-56); AST/SGOT 36 U/L (14-36); BLOOD UREA NITROGEN 9 mg/dL (7-21); CALCIUM 8.7 mg/dL (8.4-10.5); GFR NON-AFRICAN AMERICAN > 60
[2018-07-13] MEDS: Insulin Reg-LOW-Coverage SC SCH ×4 (08:41→21:18)
[2018-07-13 09:24] LABS: OSMOLALITY,URINE 568 mosm/kg (300-1000)
[2018-07-13] MEDS ORDERED: Sodium Chloride 0.9% 1,000 ML IV SCH (10:15)
--- NOTE | 2018-07-13 10:39 | CON ---
DATE OF CONSULTATION: 07/12/2018 The patient is in Room 265, Bed 1. The patient is admitted to the hospital with severe anemia. The patient is a known case of coronary artery disease, had an atrial stent insertion to circumflex on 03/31/2014, and on 02/27/2017, the patient had an abnormal stress test and cardiac cath, which showed there was a pericentric occlusion in the circumflex and also in-stent restenosis, so a long stent was placed in proximal and mid circumflex. At that time, LV ejection fraction normal at 60-65%. The patient, from cardiac point of view, is stable, does not have any chest pain, shortness of breath or palpitations. The patient's hemoglobin on admission was 5.9, hematocrit 19.7. After blood transplant, now the hemoglobin is 8.1 and hematocrit 25.9. The patient was at home on Plavix and aspirin, so we are going to hold off those medications, aspirin and Plavix, and in the mean time we will continue Keppra 500 b.i.d., insulin as ordered, Neurontin 300 mg b.i.d., Protonix 40 mg IV every 12 hours, atenolol 50 daily, lisinopril 10 day. The patient is going to be followed by GI, Marlin, and hematology, Dr. Brock. If the patient needs any procedure from GI point of view or any other procedure from cardiac point of view, the patient can go for those procedures and are moderate risk and we will continue to follow closely with you. Chris Kerr MD
[2018-07-13] MEDS: POLYETHYLENE GLYCOL 3350 17 GM/Dose PACKET PO SCH ×2 (10:53→17:21)
[2018-07-13 10:57] LABS: IRON 47 ug/dL (45-180)
[2018-07-13 11:07] LABS: % IRON SATURATION 15 % (20-55); TOTAL IRON BINDING CAPACITY 321 ug/dL (265-497)
--- NOTE | 2018-07-13 13:35 | CP.PCM.PN ---
<Wes Germain - Last Filed: 07/13/18 13:32> Subjective - Date & Time of Evaluation Date of Evaluation: 07/13/18 Time of Evaluation: 09:45 - Subjective Subjective: PGY-1 Medicine Progress note for Dr. Monzon's service Patient seen and examined at bedside. Patient offers no acute complaints. Patient denies fevers, chills, cp, sob, n/v, constipation or diarrhea, melena, hematochezia, hematuria, dizziness, and weakness. Objective - Vital Signs/Intake and Output Vital Signs (last 24 hours): Temp Pulse Resp BP Pulse Ox 97.8 F 86 20 153/77 H 95 07/13/18 06:00 07/13/18 09:40 07/13/18 06:00 07/13/18 09:40 07/13/18 06:00 Intake and Output: 07/13/18 07/13/18 06:59 18:59 Intake Total 360 Balance 360 - Medications Medications: Current Medications Acetaminophen (Tylenol 325mg Tab) 650 mg PO Q6H PRN PRN Reason: Headache Last Admin: 07/13/18 02:00 Dose: 650 mg Atenolol (Tenormin) [address] [facility] Last Admin: 07/13/18 09:38 Dose: 50 mg Docusate Sodium (Colace) [address] [facility] Last Admin: 07/13/18 10:53 Dose: 100 mg Gabapentin (Neurontin) [address] [facility]; Protocol Last Admin: 07/13/18 09:41 Dose: 300 mg Sodium Chloride (Sodium Chloride 0.9%) 1,000 mls @ 60 mls/hr IV .[id number] [facility] Last Admin: 07/13/18 10:52 Dose: 60 mls/hr Insulin Detemir (Levemir) [address] [facility] Last Admin: 07/12/18 21:35 Dose: 10 unit Insulin Human Regular (Humulin R Low) 0 units SC [facility]; Protocol Last Admin: 07/13/18 12:00 Dose: Not Given Levetiracetam (Keppra) [address] [facility] Last Admin: 07/13/18 09:41 Dose: 500 mg Lisinopril (Zestril) [address] [facility] Last Admin: 07/13/18 09:40 Dose: 10 mg Meclizine HCl (Antivert) 25 mg PO Q8H PRN PRN Reason: Dizziness Oxcarbazepine (Trileptal) [address] [facility] Last Admin: 07/13/18 09:40 Dose: 900 mg Pantoprazole Sodium (Protonix Inj) [address] [facility] Last Admin: 07/13/18 09:38 Dose: 40 mg Polyethylene Glycol (Miralax) [address] [facility] Last Admin: 07/13/18 10:53 Dose: 17 gm - Labs Labs: 07/13/18 05:35 07/13/18 05:35 PT 12.0 SECONDS (9.4-12.5) 07/11/18 17:05 INR 1.05 07/11/18 17:05 APTT 36.6 Seconds (25.1-36.5) H 07/11/18 17:05 - Additional Findings Additional findings: - Constitutional Appears: Non-toxic, No Acute Distress - Head Exam Head Exam: NORMAL INSPECTION, NORMOCEPHALIC - Eye Exam Eye Exam: EOMI, Normal appearance. absent: Nystagmus, Scleral icterus - ENT Exam ENT Exam: Mucous Membranes Moist - Respiratory Exam Respiratory Exam: Clear to Ausculation Bilateral, NORMAL BREATHING PATTERN. absent: Rales, Rhonchi, Wheezes, Respiratory Distress - Cardiovascular Exam Cardiovascular Exam: REGULAR RHYTHM, +S1, +S2 - GI/Abdominal Exam GI & Abdominal Exam: Soft, Normal Bowel Sounds. absent: Distended, Firm, Guarding, Tenderness - Extremities Exam Extremities Exam: Normal Inspection. absent: Calf Tenderness, Pedal Edema - Neurological Exam Neurological Exam: Alert, Awake, Oriented x3 - Psychiatric Exam Psychiatric exam: Normal Affect, Normal Mood - Skin Skin Exam: Intact, Normal Color Assessment and Plan - Assessment and Plan (Free Text) Assessment: 72 y/o female PMHx HTN, DM2, CAD s/p 2 stents(2016, 2014), HLD, CHERRY, seizure disorder, positional vertigo, iron deficiency anemia, admitted for asymptomatic anemia, Hgb: 5.9 after iron infusion. 2 units of pRBCs were given and patient H&H have been stable. GI recommended patient have push endoscopy done prior to discharge. Plan: Acute on Chronic Fe Deficiency anemia FOBT negative in ED Transfused with 2 units of pRBC EGD showed Larose's Esophagus in 06/12 Hold dual antiplatelet therapy as possible source of bleed Consult Hem - Dr. Brock- recommendations appreciated Consult GI- Dr. Isaac- outpatient video capsule endoscopy as patient had recent EGD/CSPY; Push endoscopy inpatient Hemodynamiccaly stable Push endoscopy as per GI NS @ 60mls/hr Hyponatremia Asymptomatic Repeat CMP in AM U sodium -139; Uosm 568 May require fluid restriction; consider repeat sodium studies patient likely euvolemic from physical exam and blood pressure Hx of CAD s/p 2x stent placement Hold dual antiplatelet therapy for now - possible cause of anemia Consult cardio- Dr. Kerr- recommendations appreciated regarding restarting antiplatelet therapy Dizziness likely secondary to anemia; Resolved with repletion through pRBCs PT/OT- Home with services c/w home Meclizine HTN Consider increasing dose if elevated blood pressures persist Lisinopril 10 mg po daily Atenolol 50mg po daily Seizure disorder Keppra 500mg po bid Trileptal 900 mg po bid [facility] Hx of DM Levemir 10 units HS low ISS Accuchecks PPX Protonix 40 IVP BID [facility]; due to bleed, hold dual anti-platelet therapy due to bleeding risk Medical Management discussed with Dr. Monzon PGY-1 Wes Germain <Chris Monzon - Last Filed: 07/14/18 14:41> Objective - Vital Signs/Intake and Output Vital Signs (last 24 hours): Temp Pulse Resp BP Pulse Ox 98 F 98 H 18 165/79 H 94 L 07/14/18 08:43 07/14/18 09:15 07/14/18 08:43 07/14/18 09:15 07/14/18 08:43 Intake and Output: 07/14/18 07/14/18 06:59 18:59 Intake Total 480 Balance 480 - Medications Medications: Current Medications Acetaminophen (Tylenol 325mg Tab) 650 mg PO Q6H PRN PRN Reason: Headache Last Admin: 07/14/18 06:40 Dose: 650 mg Atenolol (Tenormin) 50 mg PO DAILY [facility] Last Admin: 07/14/18 09:15 Dose: 50 mg Docusate Sodium (Colace) 100 mg PO BID [facility] Last Admin: 07/14/18 09:12 Dose: Not Given Gabapentin (Neurontin) 300 mg PO BID [facility]; Protocol Last Admin: 07/14/18 09:15 Dose: 300 mg Dextrose/Sodium Chloride (Dextrose 5%/0.33% Ns 1000 Ml) 500 mls @ 20 mls/hr IV .Q24H [facility] Stop: 07/15/18 13:14 Insulin Detemir (Levemir) [address] [facility] Last Admin: 07/13/18 21:20 Dose: 10 unit Insulin Human Regular (Humulin R Low) 0 units SC ACHS [facility]; Protocol Last Admin: 07/14/18 12:19 Dose: 1 unit Levetiracetam (Keppra) [address] [facility] Lisinopril (Zestril) [address] [facility] Last Admin: 07/14/18 06:40 Dose: 10 mg Lorazepam (Ativan) 2 mg IVP Q6H PRN; Protocol PRN Reason: Anxiety Meclizine HCl (Antivert) 25 mg PO Q8H PRN PRN Reason: Dizziness Oxcarbazepine (Trileptal) [address] [facility] Last Admin: 07/14/18 09:15 Dose: 900 mg Pantoprazole Sodium (Protonix Inj) [address] [facility] Last Admin: 07/14/18 09:14 Dose: 40 mg Polyethylene Glycol (Miralax) [address] [facility] Last Admin: 07/14/18 09:13 Dose: Not Given - Labs Labs: 07/14/18 07:00 07/14/18 07:00 PT 12.0 SECONDS (9.4-12.5) 07/11/18 17:05 INR 1.05 07/11/18 17:05 APTT 36.6 Seconds (25.1-36.5) H 07/11/18 17:05 Attending/Attestation - Attestation I have personally seen and examined this patient.: Yes I have fully participated in the care of the patient.: Yes I have reviewed all pertinent clinical information, including history, physical exam and plan: Yes Notes (Text): 07/14/18 14:41 Medical record note made by the resident after discussion with my direction and input after the patient was personally seen and examined by me. I have reviewed the chart and agree that the record accurately reflects by personal performance of the history, physical exam, data review, and medical decision-making, in the course for the patient. I have also personally directed the plan of care.
--- NOTE | 2018-07-13 14:52 | CP.PCM.PN ---
Addendum entered and electronically signed by Ankur Thorne DO 07/13/18 16:00: Recommend patient remain in house for workup/stabilization of hyponatremia with plans for push enteroscopy on Monday 07/16 Original Note: <Ankur Thorne - Last Filed: 07/13/18 14:52> Subjective - Date & Time of Evaluation Date of Evaluation: 07/13/18 Time of Evaluation: 07:30 - Subjective Subjective: PGY-4 GI [place] Prog Note Pt sitting up in bed when seen this AM. No complaints, no abd pain, N/V, no signs of bleeding. 5 point ROS negative other than states above Objective - Vital Signs/Intake and Output Vital Signs (last 24 hours): Temp Pulse Resp BP Pulse Ox 97.8 F 86 20 153/77 H 95 07/13/18 06:00 07/13/18 09:40 07/13/18 06:00 07/13/18 09:40 07/13/18 06:00 Intake and Output: 07/13/18 07/13/18 06:59 18:59 Intake Total 360 Balance 360 - Medications Medications: Current Medications Acetaminophen (Tylenol 325mg Tab) 650 mg PO Q6H PRN PRN Reason: Headache Last Admin: 07/13/18 02:00 Dose: 650 mg Atenolol (Tenormin) 50 mg PO DAILY [facility] Last Admin: 07/13/18 09:38 Dose: 50 mg Docusate Sodium (Colace) 100 mg PO BID [facility] Last Admin: 07/13/18 10:53 Dose: 100 mg Gabapentin (Neurontin) 300 mg PO BID [facility]; Protocol Last Admin: 07/13/18 09:41 Dose: 300 mg Sodium Chloride (Sodium Chloride 0.9%) 1,000 mls @ 60 mls/hr IV .[id number] [facility] Last Admin: 07/13/18 10:52 Dose: 60 mls/hr Insulin Detemir (Levemir) 10 unit SC HS [facility] Last Admin: 07/12/18 21:35 Dose: 10 unit Insulin Human Regular (Humulin R Low) 0 units SC ACHS [facility]; Protocol Last Admin: 07/13/18 12:00 Dose: Not Given Levetiracetam (Keppra) 500 mg PO BID [facility] Last Admin: 07/13/18 09:41 Dose: 500 mg Lisinopril (Zestril) 10 mg PO DAILY [facility] Last Admin: 07/13/18 09:40 Dose: 10 mg Meclizine HCl (Antivert) 25 mg PO Q8H PRN PRN Reason: Dizziness Oxcarbazepine (Trileptal) 900 mg PO BID [facility] Last Admin: 07/13/18 09:40 Dose: 900 mg Pantoprazole Sodium (Protonix Inj) 40 mg IVP Q12 [facility] Last Admin: 07/13/18 09:38 Dose: 40 mg Polyethylene Glycol (Miralax) 17 gm PO BID [facility] Last Admin: 07/13/18 10:53 Dose: 17 gm - Labs Labs: 07/13/18 05:35 07/13/18 05:35 PT 12.0 SECONDS (9.4-12.5) 07/11/18 17:05 INR 1.05 07/11/18 17:05 APTT 36.6 Seconds (25.1-36.5) H 07/11/18 17:05 - Constitutional Appears: Well, No Acute Distress - Head Exam Head Exam: ATRAUMATIC, NORMAL INSPECTION - Eye Exam Eye Exam: EOMI. absent: Conjunctival injection, Scleral icterus - ENT Exam ENT Exam: Mucous Membranes Moist. absent: Mucous Membranes Dry, Normal External Ear Exam - Respiratory Exam Respiratory Exam: NORMAL BREATHING PATTERN. absent: Accessory Muscle Use, Respiratory Distress - GI/Abdominal Exam GI & Abdominal Exam: Soft, Normal Bowel Sounds. absent: Bruit, Distended, Firm, Guarding, Rigid, Tenderness, Mass, Organomegaly, Pulsatile Mass Assessment and Plan - Assessment and Plan (Free Text) Assessment: 72 yo WF with h/o Fe def anemia sent in by PCP for low Hgb. # Acute on Chronic Microcytic Anemia: Stable post PRBCs 2 units. Suspect related to occult small bowel source. Recent EGD+CSPY on 06/07/18 without clear source. Diverticulosis seen though and can bleed but usually hematochezia is seen. Hemoccult negative in ED, ruling out active bleeding. 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 On Omeprazole 20 mg QD # Sigmoid tubular adenoma: 10 mm. s/p resection 06/07/18. Due for repeat CSPY in 2020 given TA greater than or equal to 10 mm. Plan: - CT Abd+Pelvix with PO+IV contrast without clear source - Originally planned for push enteroscopy, but sodium unexpectedly lower today; therefore, plan to do procedure as outpatient after hyponatremia investigated and stable - Cont with Hematology f/u - Outpatient VCE if push enteroscopy negative - OK to DC from GI standpoint Pt seen and examined with Dr. Isaac; see attestation for further recs/changes . <Judy Isaac V - Last Filed: 07/15/18 23:44> Objective - Vital Signs/Intake and Output Vital Signs (last 24 hours): Temp Pulse Resp BP Pulse Ox 98.4 F 71 20 116/57 L 94 L 07/14/18 14:00 07/14/18 14:00 07/14/18 14:00 07/14/18 14:00 07/14/18 08:43 - Medications Medications: Current Medications Acetaminophen (Tylenol 325mg Tab) 650 mg PO Q6H PRN PRN Reason: Headache Last Admin: 07/14/18 06:40 Dose: 650 mg Atenolol (Tenormin) 50 mg PO DAILY [facility] Last Admin: 07/14/18 09:15 Dose: 50 mg Docusate Sodium (Colace) 100 mg PO BID [facility] Last Admin: 07/14/18 17:26 Dose: Not Given Gabapentin (Neurontin) 300 mg PO BID [facility]; Protocol Last Admin: 07/14/18 17:29 Dose: 300 mg Dextrose/Sodium Chloride (Dextrose 5%/0.33% Ns 1000 Ml) 500 mls @ 20 mls/hr IV .Q24H [facility] Stop: 07/15/18 13:14 Last Admin: 07/14/18 15:19 Dose: 20 mls/hr Insulin Detemir (Levemir) 10 unit SC HS [facility] Last Admin: 07/13/18 21:20 Dose: 10 unit Insulin Human Regular (Humulin R Low) 0 units SC ACHS [facility]; Protocol Last Admin: 07/14/18 16:31 Dose: Not Given Levetiracetam (Keppra) 750 mg PO Q12 [facility] Last Admin: 07/14/18 12:00 Dose: Not Given Lisinopril (Zestril) 10 mg PO DAILY [facility] Last Admin: 07/14/18 06:40 Dose: 10 mg Lorazepam (Ativan) 2 mg IVP Q6H [facility]; Protocol PRN Reason: Anxiety Meclizine HCl (Antivert) 25 mg PO Q8H PRN PRN Reason: Dizziness Oxcarbazepine (Trileptal) 900 mg PO BID [facility] Last Admin: 07/14/18 17:30 Dose: 900 mg Pantoprazole Sodium (Protonix Inj) 40 mg IVP Q12 [facility] Last Admin: 07/14/18 09:14 Dose: 40 mg Polyethylene Glycol (Miralax) 17 gm PO BID [facility] Last Admin: 07/14/18 17:27 Dose: Not Given - Labs Labs: 07/14/18 07:00 07/14/18 07:00 PT 12.0 SECONDS (9.4-12.5) 07/11/18 17:05 INR 1.05 07/11/18 17:05 APTT 36.6 Seconds (25.1-36.5) H 07/11/18 17:05 Attending/Attestation - Attestation I have personally seen and examined this patient.: Yes I have fully participated in the care of the patient.: Yes I have reviewed all pertinent clinical information, including history, physical exam and plan: Yes Notes (Text): This is an addendum to GI progress report dictated by the GI Fellow.The patient was seen and examined earlier. Medical records, lab studies, imagings were reviewed. Last 24 hours events reviewed. Agreed with the above treatment plan as outlined in GI Fellow 's notes with the addition of the following CT scan was reviewed Followup of hb Consider the push enteroscopy if medically optimized Patient's endoscopic procedure canceled in view of significant drop in Na Patient will be rescheduled after further optimization 07/14/18 21:51 07/15/18 23:42
[2018-07-13 16:25] LABS: BLOOD UREA NITROGEN 8 mg/dL (7-21); CALCIUM 8.7 mg/dL (8.4-10.5); GFR NON-AFRICAN AMERICAN > 60
--- NOTE | 2018-07-13 16:43 | PN ---
DATE: 07/13/2018 Addendum to the progress note which has been already dictated by Lulu Enrique dated 07/13/2018. LOCATION: The patient is in room 265, bed 1. REASON FOR CONSULTATION: Coronary artery disease, severe anemia, hypertension, diabetes mellitus. The patient admitted due to severe anemia and the patient has history of coronary angioplasty and stent insertion in the past when the patient had stent inserted in 2013, following that the patient's in 2016 and the patient had cardiac catheterization on 02/27/2017 when it was found to have that in-stent restenosis in the circumflex and also peristent stenosis, for which a long drug-eluting stent was inserted in the proximal and mid circumflex. Ejection fraction was 55-60%. So from clinically cardiac point of view, the patient has been asymptomatic. Now, she is admitted with a severe anemia with hemoglobin 5.9, hematocrit 19.7. Today, the hemoglobin is 8.4 and hematocrit 26.9. From cardiac point of view, the patient is asymptomatic. The patient's Plavix has been on hold. The patient is on lisinopril 10 daily, Keppra 500 mg b.i.d., gabapentin 300 b.i.d., Protonix 50 daily with atenolol 50 daily, oxcarbazepine 900 mg p.o. b.i.d. We will continue to follow. Clinically, the patient's cardiac status is stable. She has no chest pain, shortness of breath, palpitations. Chris Kerr MD
[2018-07-13 17:03] LABS: FOLATE 15.1 ng/mL
[2018-07-13 19:48] LABS: OSMOLALITY,URINE 613 mosm/kg (300-1000)
[2018-07-13] MEDS: Insulin Detemir 100 units/ml Vial (Levemir) SC SCH (21:20)
[2018-07-14 07:42] LABS: ALBUMIN 3.7 g/dL (3.0-4.8); ALT/SGPT 20 U/L (7-56); AST/SGOT 35 U/L (14-36); BLOOD UREA NITROGEN 8 mg/dL (7-21); CALCIUM 8.6 mg/dL (8.4-10.5); GFR NON-AFRICAN AMERICAN > 60
--- NOTE | 2018-07-14 07:45 | CP.PCM.PN ---
Subjective - Date & Time of Evaluation Date of Evaluation: 07/14/18 Time of Evaluation: 07:20 - Subjective Subjective: Awake, alert,Lying in bed, no distress, denies chest pain,denies shortness of breath Reason for consultation and follow up: Cardiac evaluation of coronary artery disease, history of coronary stents,History of hypertension, diabetes mellitus , hyperlipidemia,iron deficiency anemia, on iron infusions,admitted due to low hemoglobin severe anemia. Seen and examined by me and Dr. Kerr Objective - Vital Signs/Intake and Output Vital Signs (last 24 hours): Temp Pulse Resp BP Pulse Ox 97.9 F 89 20 163/91 H 92 L 07/13/18 22:00 07/14/18 06:40 07/13/18 22:00 07/14/18 06:40 07/13/18 22:00 Intake and Output: 07/14/18 07/14/18 06:59 18:59 Intake Total 480 Balance 480 - Medications Medications: Current Medications Acetaminophen (Tylenol 325mg Tab) 650 mg PO Q6H PRN PRN Reason: Headache Last Admin: 07/14/18 06:40 Dose: 650 mg Atenolol (Tenormin) 50 mg PO DAILY [facility] Last Admin: 07/13/18 09:38 Dose: 50 mg Docusate Sodium (Colace) 100 mg PO BID [facility] Last Admin: 07/13/18 17:21 Dose: 100 mg Gabapentin (Neurontin) 300 mg PO BID [facility]; Protocol Last Admin: 07/13/18 17:22 Dose: 300 mg Insulin Detemir (Levemir) 10 unit SC HS [facility] Last Admin: 07/13/18 21:20 Dose: 10 unit Insulin Human Regular (Humulin R Low) 0 units SC ACHS [facility]; Protocol Last Admin: 07/13/18 21:18 Dose: Not Given Levetiracetam (Keppra) 500 mg PO BID [facility] Last Admin: 07/13/18 17:21 Dose: 500 mg Lisinopril (Zestril) 10 mg PO DAILY [facility] Last Admin: 07/14/18 06:40 Dose: 10 mg Meclizine HCl (Antivert) 25 mg PO Q8H PRN PRN Reason: Dizziness Oxcarbazepine (Trileptal) 900 mg PO BID [facility] Last Admin: 07/13/18 17:21 Dose: 900 mg Pantoprazole Sodium (Protonix Inj) 40 mg IVP Q12 [facility] Last Admin: 07/13/18 21:20 Dose: 40 mg Polyethylene Glycol (Miralax) 17 gm PO BID [facility] Last Admin: 07/13/18 17:21 Dose: 17 gm - Labs Labs: 07/13/18 05:35 07/14/18 07:00 PT 12.0 SECONDS (9.4-12.5) 07/11/18 17:05 INR 1.05 07/11/18 17:05 APTT 36.6 Seconds (25.1-36.5) H 07/11/18 17:05 - Constitutional Appears: Non-toxic, No Acute Distress - Head Exam Head Exam: NORMAL INSPECTION, NORMOCEPHALIC - Eye Exam Eye Exam: Normal appearance Pupil Exam: NORMAL ACCOMODATION - ENT Exam ENT Exam: Mucous Membranes Moist, Normal Exam - Respiratory Exam Respiratory Exam: Clear to Ausculation Bilateral, NORMAL BREATHING PATTERN - Cardiovascular Exam Cardiovascular Exam: +S1, +S2 - GI/Abdominal Exam GI & Abdominal Exam: Soft, Normal Bowel Sounds - Neurological Exam Neurological Exam: Alert, Awake, Oriented x3 - Psychiatric Exam Psychiatric exam: Normal Affect, Normal Mood - Skin Skin Exam: Dry, Normal Color, Warm Assessment and Plan - Assessment and Plan (Free Text) Assessment: A 72 year old female who was sent to the ER by Dr. Brock due to low hemoglobin and hematocrit. She was supposed to have iron infusion. History of hypertension, diabetes mellitus type 2,dizziness (on antivert), hyperlipidemia,iron deficiency anemia, on iron infusions,seizure disorder,tubal ligation, partial hysterectomy, coronary artery disease with stents of the circumflex (2013). Hgb/Hematocrit on admission 5.9/19.7. transfused 2 unit PRBC.Hold Aspirin and Plavix for now until hemoglobin and hematocrit stabilizes,Will reevaluate if ASA and Plavix needs to continue (its been almost a year since last PTCA).Clinically stable, discontinued telemetry.H/H stable Review of previous cardiac work up at [facility]: 02/27/17- Cardiac catheterization with stent Single vessel CAD of the Proximal and mid Circumflex ( in stent re-stenosis previous stent 03/31/2014) Single long stent LOBITO to proximal and distal circumflex LVEF 55-60% 02/06/17- Stress test done- abnormal, positve for ischemia requiring cardiac catheterization on 03/09/17. Plan: Low sodium today 123 Will give D5W 0.33% NSS 500cc x 1 bag Repeat level in AM No distress, Denies chest pain Heart rate and blood pressure stable Cardiac status stable Plavix and ASA held Stable H/H today 8.4/26.9 On Tenormin 50 mg daily, keprra 500 mg BID, Lisinopril 10 mg daily, Antivert 25 mg every 8 hours. Protonix 40 mg IV every 12 hours Continue current treatment Continue current medications Chart reviewed Will follow up Plan and treatment discussed with Dr. Kerr
[2018-07-14 07:49] LABS: BASO # 0.02 K/mm3 (0.0-2.0); BASO % 0.1 % (0.0-3.0); EOS # 0.3 (0.0-0.7); EOS % 1.8 % (1.5-5.0); GRAN # 12.47 (1.4-6.5); GRAN % 78.8 % (50.0-68.0); HEMOGLOBIN 8.9 g/dL (12.0-16.0); LYMPH # 1.9 (1.2-3.4); LYMPH % 12.1 % (22.0-35.0); MEAN CELL VOLUME 78.9 fl (80.0-105.0); MEAN CORPUSCULAR HGB CONC 31.7 g/dl (31.0-37.0); MONO # 1.1 (0.1-0.6); MONO % 7.2 % (1.0-6.0); RBC 3.56 10^6/uL (3.5-6.1); RED CELL DISTRIBUTION WIDTH 19.9 % (11.5-14.5); WHITE BLOOD COUNT 15.8 10^3/ul (4.5-11.0)
[2018-07-14] MEDS: Insulin Reg-LOW-Coverage SC SCH ×4 (08:43→22:22)
[2018-07-14] MEDS: POLYETHYLENE GLYCOL 3350 17 GM/Dose PACKET PO SCH ×2 (09:13→17:27)
[2018-07-14] MEDS ORDERED: Tolvaptan 15 MG TAB PO ONE (12:10)
--- NOTE | 2018-07-14 12:17 | CP.PCM.PN ---
<Ford Gonzalez - Last Filed: 07/14/18 12:13> Subjective - Date & Time of Evaluation Date of Evaluation: 07/14/18 Time of Evaluation: 12:13 - Subjective Subjective: No complaints this AM. No bleeding. She is requesting to go home. Objective - Vital Signs/Intake and Output Vital Signs (last 24 hours): Temp Pulse Resp BP Pulse Ox 98 F 98 H 18 165/79 H 94 L 07/14/18 08:43 07/14/18 09:15 07/14/18 08:43 07/14/18 09:15 07/14/18 08:43 Intake and Output: 07/14/18 07/14/18 06:59 18:59 Intake Total 480 Balance 480 - Medications Medications: Current Medications Acetaminophen (Tylenol 325mg Tab) 650 mg PO Q6H PRN PRN Reason: Headache Last Admin: 07/14/18 06:40 Dose: 650 mg Atenolol (Tenormin) [address] [facility] Last Admin: 07/14/18 09:15 Dose: 50 mg Docusate Sodium (Colace) [address] [facility] Last Admin: 07/14/18 09:12 Dose: Not Given Gabapentin (Neurontin) [address] [facility]; Protocol Last Admin: 07/14/18 09:15 Dose: 300 mg Insulin Detemir (Levemir) [address] [facility] Last Admin: 07/13/18 21:20 Dose: 10 unit Insulin Human Regular (Humulin R Low) [address] [facility]; Protocol Last Admin: 07/14/18 08:43 Dose: Not Given Levetiracetam (Keppra) [address] [facility] Lisinopril (Zestril) [address] [facility] Last Admin: 07/14/18 06:40 Dose: 10 mg Lorazepam (Ativan) 2 mg IVP Q6H PRN; Protocol PRN Reason: Anxiety Meclizine HCl (Antivert) 25 mg PO Q8H PRN PRN Reason: Dizziness Oxcarbazepine (Trileptal) [address] [facility] Last Admin: 07/14/18 09:15 Dose: 900 mg Pantoprazole Sodium (Protonix Inj) [address] [facility] Last Admin: 07/14/18 09:14 Dose: 40 mg Polyethylene Glycol (Miralax) 17 gm PO BID [facility] Last Admin: 07/14/18 09:13 Dose: Not Given Tolvaptan (Samsca) 15 mg PO ONCE ONE Stop: 07/14/18 12:11 - Labs Labs: 07/14/18 07:00 07/14/18 07:00 PT 12.0 SECONDS (9.4-12.5) 07/11/18 17:05 INR 1.05 07/11/18 17:05 APTT 36.6 Seconds (25.1-36.5) H 07/11/18 17:05 - Constitutional Appears: Non-toxic, No Acute Distress - Eye Exam Eye Exam: Normal appearance - ENT Exam ENT Exam: Mucous Membranes Moist - Neck Exam Neck Exam: Normal Inspection - Respiratory Exam Respiratory Exam: Clear to Ausculation Bilateral, NORMAL BREATHING PATTERN - Cardiovascular Exam Cardiovascular Exam: REGULAR RHYTHM, +S1, +S2 - GI/Abdominal Exam GI & Abdominal Exam: Soft, Normal Bowel Sounds. absent: Tenderness - Extremities Exam Extremities Exam: Normal Inspection - Psychiatric Exam Psychiatric exam: Normal Affect, Normal Mood - Skin Skin Exam: Dry Assessment and Plan - Assessment and Plan (Free Text) Assessment: 72 yo WF with h/o Fe def anemia sent in by PCP for low Hgb. # Acute on Chronic Microcytic Anemia: Stable post PRBCs 2 units. Suspect related to occult small bowel source. Recent EGD+CSPY on 06/07/18 without clear source. Diverticulosis seen though and can bleed but usually hematochezia is seen. Hemoccult negative in ED, ruling out active bleeding. 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 On Omeprazole 20 mg QD # Sigmoid tubular adenoma: 10 mm. s/p resection 06/07/18. Due for repeat CSPY in 2020 given TA greater than or equal to 10 mm. #Euvolemic hyponatremia Plan: - CT Abd+Pelvix with PO+IV contrast without clear source - Originally planned for push enteroscopy, but sodium unexpectedly lower today; therefore, plan to do procedure Monday if possible, otherwise can be done as an outpt. - Cont with Hematology f/u - Outpatient VCE if push enteroscopy negative <Judy Isaac V - Last Filed: 07/15/18 23:45> Objective - Vital Signs/Intake and Output Vital Signs (last 24 hours): Temp Pulse Resp BP Pulse Ox 98.4 F 71 20 116/57 L 94 L 07/14/18 14:00 07/14/18 14:00 07/14/18 14:00 07/14/18 14:00 07/14/18 08:43 - Medications Medications: Current Medications Acetaminophen (Tylenol 325mg Tab) 650 mg PO Q6H PRN PRN Reason: Headache Last Admin: 07/14/18 06:40 Dose: 650 mg Atenolol (Tenormin) [address] [facility] Last Admin: 07/14/18 09:15 Dose: 50 mg Docusate Sodium (Colace) [address] [facility] Last Admin: 07/14/18 17:26 Dose: Not Given Gabapentin (Neurontin) [address] [facility]; Protocol Last Admin: 07/14/18 17:29 Dose: 300 mg Dextrose/Sodium Chloride (Dextrose 5%/0.33% Ns 1000 Ml) 500 mls @ 20 mls/hr IV .Q24H [facility] Stop: 07/15/18 13:14 Last Admin: 07/14/18 15:19 Dose: 20 mls/hr Insulin Detemir (Levemir) [address] [facility] Last Admin: 07/13/18 21:20 Dose: 10 unit Insulin Human Regular (Humulin R Low) [address] [facility]; Protocol Last Admin: 07/14/18 16:31 Dose: Not Given Levetiracetam (Keppra) [address] [facility] Last Admin: 07/14/18 12:00 Dose: Not Given Lisinopril (Zestril) [address] [facility] Last Admin: 07/14/18 06:40 Dose: 10 mg Lorazepam (Ativan) 2 mg IVP Q6H PRN; Protocol PRN Reason: Anxiety Meclizine HCl (Antivert) 25 mg PO Q8H PRN PRN Reason: Dizziness Oxcarbazepine (Trileptal) [address] [facility] Last Admin: 07/14/18 17:30 Dose: 900 mg Pantoprazole Sodium (Protonix Inj) [address] [facility] Last Admin: 07/14/18 09:14 Dose: 40 mg Polyethylene Glycol (Miralax) [address] [facility] Last Admin: 07/14/18 17:27 Dose: Not Given - Labs Labs: 07/14/18 07:00 07/14/18 07:00 PT 12.0 SECONDS (9.4-12.5) 07/11/18 17:05 INR 1.05 07/11/18 17:05 APTT 36.6 Seconds (25.1-36.5) H 07/11/18 17:05 Attending/Attestation - Attestation I have personally seen and examined this patient.: Yes I have fully participated in the care of the patient.: Yes I have reviewed all pertinent clinical information, including history, physical exam and plan: Yes Notes (Text): This is an addendum to GI progress report dictated by the GI Fellow.The patient was seen and examined earlier. Medical records, lab studies, imagings were reviewed. Last 24 hours events reviewed. Agreed with the above treatment plan as outlined in GI Fellow 's notes with the addition of the following Patient is refusing push enteroscopy Patient is being treated for hyponatremia Followup of hb push enteroscopy when optimized 07/14/18 21:51 07/15/18 23:44
--- NOTE | 2018-07-14 13:12 | CP.PCM.PN ---
<Wes Germain - Last Filed: 07/14/18 13:07> Subjective - Date & Time of Evaluation Date of Evaluation: 07/14/18 Time of Evaluation: 11:00 - Subjective Subjective: PGY-1 Medicine Progress note for Dr. Monzon's service Patient seen and examined at bedside. Patient was upset with delay of discharge. Patient was explained about decreased sodium levels increasing seizure risk. Patient denies fevers, chills, chest pain, sob, n/v, constipation or diarrhea, melena, hematochezia, hematuria, dysuria. Objective - Vital Signs/Intake and Output Vital Signs (last 24 hours): Temp Pulse Resp BP Pulse Ox 98 F 98 H 18 165/79 H 94 L 07/14/18 08:43 07/14/18 09:15 07/14/18 08:43 07/14/18 09:15 07/14/18 08:43 Intake and Output: 07/14/18 07/14/18 06:59 18:59 Intake Total 480 Balance 480 - Medications Medications: Current Medications Acetaminophen (Tylenol 325mg Tab) 650 mg PO Q6H PRN PRN Reason: Headache Last Admin: 07/14/18 06:40 Dose: 650 mg Atenolol (Tenormin) 50 mg PO DAILY [facility] Last Admin: 07/14/18 09:15 Dose: 50 mg Docusate Sodium (Colace) 100 mg PO BID [facility] Last Admin: 07/14/18 09:12 Dose: Not Given Gabapentin (Neurontin) 300 mg PO BID [facility]; Protocol Last Admin: 07/14/18 09:15 Dose: 300 mg Insulin Detemir (Levemir) 10 unit SC HS [facility] Last Admin: 07/13/18 21:20 Dose: 10 unit Insulin Human Regular (Humulin R Low) 0 units SC ACHS [facility]; Protocol Last Admin: 07/14/18 12:19 Dose: 1 unit Levetiracetam (Keppra) 750 mg PO Q12 [facility] Lisinopril (Zestril) 10 mg PO DAILY [facility] Last Admin: 07/14/18 06:40 Dose: 10 mg Lorazepam (Ativan) 2 mg IVP Q6H PRN; Protocol PRN Reason: Anxiety Meclizine HCl (Antivert) 25 mg PO Q8H PRN PRN Reason: Dizziness Oxcarbazepine (Trileptal) 900 mg PO BID [facility] Last Admin: 07/14/18 09:15 Dose: 900 mg Pantoprazole Sodium (Protonix Inj) 40 mg IVP Q12 [facility] Last Admin: 07/14/18 09:14 Dose: 40 mg Polyethylene Glycol (Miralax) 17 gm PO BID [facility] Last Admin: 07/14/18 09:13 Dose: Not Given - Labs Labs: 07/14/18 07:00 07/14/18 07:00 PT 12.0 SECONDS (9.4-12.5) 07/11/18 17:05 INR 1.05 07/11/18 17:05 APTT 36.6 Seconds (25.1-36.5) H 07/11/18 17:05 - Constitutional Appears: Non-toxic, No Acute Distress - Head Exam Head Exam: NORMAL INSPECTION, NORMOCEPHALIC - Eye Exam Eye Exam: EOMI, Normal appearance. absent: Nystagmus, Scleral icterus - Respiratory Exam Respiratory Exam: Clear to Ausculation Bilateral, NORMAL BREATHING PATTERN. absent: Rales, Rhonchi, Wheezes - Cardiovascular Exam Cardiovascular Exam: REGULAR RHYTHM, +S1, +S2. absent: Tachycardia - GI/Abdominal Exam GI & Abdominal Exam: Soft, Normal Bowel Sounds. absent: Distended, Firm, Guarding, Rigid, Tenderness - Extremities Exam Extremities Exam: Normal Inspection. absent: Calf Tenderness, Pedal Edema - Neurological Exam Neurological Exam: Alert, Awake, Oriented x3 - Psychiatric Exam Psychiatric exam: Normal Affect, Normal Mood - Skin Skin Exam: Intact, Normal Color Assessment and Plan - Assessment and Plan (Free Text) Assessment: 72 y/o female PMHx HTN, DM2, CAD s/p 2 stents(2016, 2014), HLD, CHERRY, seizure disorder, positional vertigo, iron deficiency anemia, admitted for asymptomatic anemia, Hgb: 5.9 after iron infusion. 2 units of pRBCs were given and patient H&H have been stable. GI recommended patient have push endoscopy done prior to discharge. Plan: Acute on Chronic Fe Deficiency anemia FOBT negative in ED Transfused with 2 units of pRBC EGD showed Larose's Esophagus in 06/12 Hold dual antiplatelet therapy as possible source of bleed Consult Hem - Dr. Brock- recommendations appreciated Consult GI- Dr. Isaac- outpatient video capsule endoscopy as patient had recent EGD/CSPY; Push endoscopy inpatient Hemodynamiccaly stable Push endoscopy as per GI Hyponatremia Nephro Consulted- Dr. 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 Kerr- recommendations appreciated regarding restarting antiplatelet therapy Dizziness likely secondary to anemia; Resolved with repletion through pRBCs PT/OT- Home with services c/w home Meclizine HTN Consider increasing dose if elevated blood pressures persist Lisinopril 10 mg po daily Atenolol 50mg po daily Seizure disorder Neuro Consulted- Dr. Oliveira- recommendations appreciated Keppra 750mg po bid Trileptal held in setting of hyponatremia worsening Hx of DM Levemir 10 units HS low ISS Accuchecks PPX Protonix 40 IVP BID [facility]; due to bleed, hold dual anti-platelet therapy due to bleeding risk Medical Management discussed with Dr. Monzon PGY-1 Wes Germain <Chris Monzon - Last Filed: 07/14/18 14:40> Objective - Vital Signs/Intake and Output Vital Signs (last 24 hours): Temp Pulse Resp BP Pulse Ox 98 F 98 H 18 165/79 H 94 L 07/14/18 08:43 07/14/18 09:15 07/14/18 08:43 07/14/18 09:15 07/14/18 08:43 Intake and Output: 07/14/18 07/14/18 06:59 18:59 Intake Total 480 Balance 480 - Medications Medications: Current Medications Acetaminophen (Tylenol 325mg Tab) 650 mg PO Q6H PRN PRN Reason: Headache Last Admin: 07/14/18 06:40 Dose: 650 mg Atenolol (Tenormin) 50 mg PO DAILY [facility] Last Admin: 07/14/18 09:15 Dose: 50 mg Docusate Sodium (Colace) 100 mg PO BID [facility] Last Admin: 07/14/18 09:12 Dose: Not Given Gabapentin (Neurontin) 300 mg PO BID [facility]; Protocol Last Admin: 07/14/18 09:15 Dose: 300 mg Dextrose/Sodium Chloride (Dextrose 5%/0.33% Ns 1000 Ml) 500 mls @ 20 mls/hr IV .Q24H [facility] Stop: 07/15/18 13:14 Insulin Detemir (Levemir) 10 unit SC HS [facility] Last Admin: 07/13/18 21:20 Dose: 10 unit Insulin Human Regular (Humulin R Low) 0 units SC ACHS [facility]; Protocol Last Admin: 07/14/18 12:19 Dose: 1 unit Levetiracetam (Keppra) 750 mg PO Q12 [facility] Lisinopril (Zestril) 10 mg PO DAILY [facility] Last Admin: 07/14/18 06:40 Dose: 10 mg Lorazepam (Ativan) 2 mg IVP Q6H PRN; Protocol PRN Reason: Anxiety Meclizine HCl (Antivert) 25 mg PO Q8H PRN PRN Reason: Dizziness Oxcarbazepine (Trileptal) 900 mg PO BID [facility] Last Admin: 07/14/18 09:15 Dose: 900 mg Pantoprazole Sodium (Protonix Inj) 40 mg IVP Q12 [facility] Last Admin: 07/14/18 09:14 Dose: 40 mg Polyethylene Glycol (Miralax) 17 gm PO BID [facility] Last Admin: 07/14/18 09:13 Dose: Not Given - Labs Labs: 07/14/18 07:00 07/14/18 07:00 PT 12.0 SECONDS (9.4-12.5) 07/11/18 17:05 INR 1.05 07/11/18 17:05 APTT 36.6 Seconds (25.1-36.5) H 07/11/18 17:05 Attending/Attestation - Attestation I have personally seen and examined this patient.: Yes I have fully participated in the care of the patient.: Yes I have reviewed all pertinent clinical information, including history, physical exam and plan: Yes Notes (Text): 07/14/18 14:34 72 yrs old female PMHx HTN, DM2, CAD s/p 2 stents(2016, 2014), HLD, CHERRY, seizure disorder, positional vertigo, iron deficiency anemia, admitted for anemia.Hemoglobin was 5.9 She is SP 2 units of PRBC.Hemoglobin improved to 8.9 and is stable.Patient is SP EGD 06/07/18 showed Larose's Esophagus, Colonoscopy last month was also unremarkable.There is no active bleeding.Hemoglobin is stable since admission.Patient is asymptomatic.GI recommended patient have push endoscopy done prior to discharge. 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 Management plan was discussed in detail with patient. Education was provided.
[2018-07-14] MEDS ORDERED: DEXTROSE IV SCH (13:15)
[2018-07-14] MEDS ORDERED: [UNRECOGNIZED DRUG - OTHER] IV SCH (13:15)
--- NOTE | 2018-07-14 19:11 | CP.PCM.CON ---
History of Present Illness - History of Present Illness History of Present Illness: Neurology consult dictated:' In brief, patient has hyponatremia from trileptal and needs to be tapered down from this medications. Recommendations: 1. Decrease trileptal by 300 bid daily to 600 mg bid tomorrow 300 mg bid monday 150 mg bid monday Then discontinue. 2. Keppra must also be started at 1000 mg today, IV and then continued on [address] voss Past Patient History - Infectious Disease Hx of Infectious Diseases: None - Tetanus Immunizations Tetanus Immunization: Unknown - Past Social History Smoking Status: Never Smoked - CARDIAC Hx Hypertension: Yes Hx Pacemaker: No - PULMONARY Hx Respiratory Disorders: No - NEUROLOGICAL Hx Seizures: Yes - HEENT Hx HEENT Problems: No - RENAL Hx Chronic Kidney Disease: No - ENDOCRINE/METABOLIC Hx Diabetes Mellitus Type 1: Yes - HEMATOLOGICAL/ONCOLOGICAL Hx Blood Transfusions: No - INTEGUMENTARY Hx Dermatological Problems: No - MUSCULOSKELETAL/RHEUMATOLOGICAL Hx Musculoskeletal Disorders: Yes - GASTROINTESTINAL Hx Gastroesophageal Reflux: Yes - GENITOURINARY/GYNECOLOGICAL Other/Comment: TUBAL LIGATION, HYSTERECTOMY - PSYCHIATRIC Hx Emotional Abuse: No Hx Physical Abuse: No Hx Substance Use: No - SURGICAL HISTORY Hx Cardiac Catheterization: Yes Hx Coronary Stent: Yes Hx Hysterectomy: Yes - ANESTHESIA Hx Anesthesia Reactions: No Hx Malignant Hyperthermia: No Meds Allergies/Adverse Reactions: Allergies Allergy/AdvReac Type Severity Reaction Status Date / Time naproxen [From Naprosyn] Allergy Severe RASH Verified 07/11/18 16:38 divalproex sodium AdvReac Severe BACTERIAL Verified 07/11/18 16:38 [From Depakote] INFECTION - Medications Medications: Current Medications Acetaminophen (Tylenol 325mg Tab) 650 mg PO Q6H PRN PRN Reason: Headache Last Admin: 07/14/18 06:40 Dose: 650 mg Atenolol (Tenormin) 50 mg PO DAILY [facility] Last Admin: 07/14/18 09:15 Dose: 50 mg Docusate Sodium (Colace) 100 mg PO BID [facility] Last Admin: 07/14/18 17:26 Dose: Not Given Gabapentin (Neurontin) 300 mg PO BID [facility]; Protocol Last Admin: 07/14/18 17:29 Dose: 300 mg Dextrose/Sodium Chloride (Dextrose 5%/0.33% Ns 1000 Ml) 500 mls @ 20 mls/hr IV .Q24H [facility] Stop: 07/15/18 13:14 Last Admin: 07/14/18 15:19 Dose: 20 mls/hr Insulin Detemir (Levemir) 10 unit SC HS [facility] Last Admin: 07/13/18 21:20 Dose: 10 unit Insulin Human Regular (Humulin R Low) 0 units SC ACHS [facility]; Protocol Last Admin: 07/14/18 16:31 Dose: Not Given Levetiracetam (Keppra) 750 mg PO Q12 [facility] Last Admin: 07/14/18 12:00 Dose: Not Given Lisinopril (Zestril) 10 mg PO DAILY [facility] Last Admin: 07/14/18 06:40 Dose: 10 mg Lorazepam (Ativan) 2 mg IVP Q6H PRN; Protocol PRN Reason: Anxiety Meclizine HCl (Antivert) 25 mg PO Q8H PRN PRN Reason: Dizziness Oxcarbazepine (Trileptal) 900 mg PO BID [facility] Last Admin: 07/14/18 17:30 Dose: 900 mg Pantoprazole Sodium (Protonix Inj) 40 mg IVP Q12 [facility] Last Admin: 07/14/18 09:14 Dose: 40 mg Polyethylene Glycol (Miralax) 17 gm PO BID [facility] Last Admin: 07/14/18 17:27 Dose: Not Given Results - Vital Signs Recent Vital Signs: Last Vital Signs Temp 98.4 F 07/14/18 14:00 Pulse 71 07/14/18 14:00 Resp 20 07/14/18 14:00 BP 116/57 L 07/14/18 14:00 Pulse Ox 94 L 07/14/18 08:43 - Labs Result Diagrams: 07/14/18 07:00 07/14/18 07:00 Labs: Laboratory Results - last 24 hr 07/13/18 07/13/18 07/13/18 16:00 18:59 21:09 WBC RBC Hgb Hct MCV MCH MCHC RDW Plt Count MPV Gran % Lymph % (Auto) [place] % (Auto) Eos % (Auto) Baso % (Auto) Gran # Lymph # (Auto) [place] # (Auto) Eos # (Auto) Baso # (Auto) Sodium Potassium Chloride Carbon Dioxide Anion Gap BUN Creatinine Est GFR ( Amer) Est GFR (Non-Af Amer) POC Glucose (mg/dL) 111 H 127 H Random Glucose Calcium Total Bilirubin AST ALT Alkaline Phosphatase Total Protein Albumin Globulin Albumin/Globulin Ratio Urine Osmolality 613 Ur Random Sodium 107 07/14/18 07/14/18 07/14/18 06:31 07:00 07:00 WBC 15.8 H RBC 3.56 Hgb 8.9 L Hct 28.1 L MCV 78.9 L MCH 25.0 MCHC 31.7 RDW 19.9 H Plt Count 422 MPV 8.0 Gran % 78.8 H Lymph % (Auto) 12.1 L [place] % (Auto) 7.2 H Eos % (Auto) 1.8 Baso % (Auto) 0.1 Gran # 12.47 H Lymph # (Auto) 1.9 [place] # (Auto) 1.1 H Eos # (Auto) 0.3 Baso # (Auto) 0.02 Sodium 123 L Potassium 4.4 Chloride 87 L Carbon Dioxide 27 Anion Gap 13 BUN 8 Creatinine 0.4 L Est GFR ( Amer) > 60 Est GFR (Non-Af Amer) > 60 POC Glucose (mg/dL) 136 H Random Glucose 137 H Calcium 8.6 Total Bilirubin 0.5 AST 35 ALT 20 Alkaline Phosphatase 123 Total Protein 7.4 Albumin 3.7 Globulin 3.7 Albumin/Globulin Ratio 1.0 L Urine Osmolality Ur Random Sodium 07/14/18 07/14/18 11:50 16:16 WBC RBC Hgb Hct MCV MCH MCHC RDW Plt Count MPV Gran % Lymph % (Auto) [place] % (Auto) Eos % (Auto) Baso % (Auto) Gran # Lymph # (Auto) [place] # (Auto) Eos # (Auto) Baso # (Auto) Sodium Potassium Chloride Carbon Dioxide Anion Gap BUN Creatinine Est GFR ( Amer) Est GFR (Non-Af Amer) POC Glucose (mg/dL) 154 H 148 H Random Glucose Calcium Total Bilirubin AST ALT Alkaline Phosphatase Total Protein Albumin Globulin Albumin/Globulin Ratio Urine Osmolality Ur Random Sodium
[2018-07-14] MEDS: Insulin Detemir 100 units/ml Vial (Levemir) SC SCH (21:45)
--- NOTE | 2018-07-14 22:40 | CP.PCM.CON ---
History of Present Illness - History of Present Illness History of Present Illness: 72 y/o female PMHx HTN, DM2, CAD s/p 2 stents(2017, 2014), HLD, seizure disorder, positional vertigo, iron deficiency anemia, and hyponatremia, admitted for asymptomatic anemia; nephrology being consulted for worsening hyponatremia; Past Patient History - Infectious Disease Hx of Infectious Diseases: None - Tetanus Immunizations Tetanus Immunization: Unknown - Past Social History Smoking Status: Never Smoked - CARDIAC Hx Hypertension: Yes Hx Pacemaker: No - PULMONARY Hx Respiratory Disorders: No - NEUROLOGICAL Hx Seizures: Yes - HEENT Hx HEENT Problems: No - RENAL Hx Chronic Kidney Disease: No - ENDOCRINE/METABOLIC Hx Diabetes Mellitus Type 1: Yes - HEMATOLOGICAL/ONCOLOGICAL Hx Blood Transfusions: No - INTEGUMENTARY Hx Dermatological Problems: No - MUSCULOSKELETAL/RHEUMATOLOGICAL Hx Musculoskeletal Disorders: Yes - GASTROINTESTINAL Hx Gastroesophageal Reflux: Yes - GENITOURINARY/GYNECOLOGICAL Other/Comment: TUBAL LIGATION, HYSTERECTOMY - PSYCHIATRIC Hx Emotional Abuse: No Hx Physical Abuse: No Hx Substance Use: No - SURGICAL HISTORY Hx Cardiac Catheterization: Yes Hx Coronary Stent: Yes Hx Hysterectomy: Yes - ANESTHESIA Hx Anesthesia Reactions: No Hx Malignant Hyperthermia: No Meds Allergies/Adverse Reactions: Allergies Allergy/AdvReac Type Severity Reaction Status Date / Time naproxen [From Naprosyn] Allergy Severe RASH Verified 07/11/18 16:38 divalproex sodium AdvReac Severe BACTERIAL Verified 07/11/18 16:38 [From Depakote] INFECTION - Medications Medications: Current Medications Acetaminophen (Tylenol 325mg Tab) 650 mg PO Q6H PRN PRN Reason: Headache Last Admin: 07/14/18 06:40 Dose: 650 mg Atenolol (Tenormin) 50 mg PO DAILY [facility]S [facility] 234 BEDS AT THE [facility] Last Admin: 07/14/18 09:15 Dose: 50 mg Docusate Sodium (Colace) 100 mg PO BID COUNTS INCLUDE 234 BEDS AT THE [facility] Last Admin: 07/14/18 17:26 Dose: Not Given Gabapentin (Neurontin) 300 mg PO BID COUNTS INCLUDE 234 BEDS AT THE [facility]; Protocol Last Admin: 07/14/18 17:29 Dose: 300 mg Dextrose/Sodium Chloride (Dextrose 5%/0.33% Ns 1000 Ml) 500 mls @ 20 mls/hr IV .Q24H [facility] Stop: 07/15/18 13:14 Last Admin: 07/14/18 15:19 Dose: 20 mls/hr Insulin Detemir (Levemir) 10 unit SC HS COUNTS INCLUDE 234 BEDS AT THE [facility] Last Admin: 07/14/18 21:45 Dose: 10 unit Insulin Human Regular (Humulin R Low) [address] [facility] COUNTS INCLUDE 234 BEDS AT THE [facility]; Protocol Last Admin: 07/14/18 16:31 Dose: Not Given Levetiracetam (Keppra) 750 mg PO Q12 COUNTS INCLUDE 234 BEDS AT THE [facility] Last Admin: 07/14/18 21:43 Dose: 750 mg Lisinopril (Zestril) 10 mg PO DAILY COUNTS INCLUDE 234 BEDS AT THE [facility] Last Admin: 07/14/18 06:40 Dose: 10 mg Lorazepam (Ativan) 2 mg IVP Q6H PRN; Protocol PRN Reason: Anxiety Meclizine HCl (Antivert) 25 mg PO Q8H PRN PRN Reason: Dizziness Oxcarbazepine (Trileptal) 900 mg PO BID COUNTS INCLUDE 234 BEDS AT THE [facility] Last Admin: 07/14/18 17:30 Dose: 900 mg Pantoprazole Sodium (Protonix Inj) 40 mg IVP Q12 COUNTS INCLUDE 234 BEDS AT THE [facility] Last Admin: 07/14/18 21:46 Dose: 40 mg Polyethylene Glycol (Miralax) 17 gm PO BID COUNTS INCLUDE 234 BEDS AT THE [facility] Last Admin: 07/14/18 17:27 Dose: Not Given Results - Vital Signs Recent Vital Signs: Last Vital Signs Temp 97.6 F 07/14/18 22:39 Pulse 80 07/14/18 22:39 Resp 18 07/14/18 22:39 BP 127/45 L 07/14/18 22:39 Pulse Ox 94 L 07/14/18 22:39 - Labs Result Diagrams: 07/15/18 05:00 07/15/18 05:00 Labs: Laboratory Results - last 24 hr 07/14/18 07/14/18 07/14/18 06:31 07:00 07:00 WBC 15.8 H RBC 3.56 Hgb 8.9 L Hct 28.1 L MCV 78.9 L MCH 25.0 MCHC 31.7 RDW 19.9 H Plt Count 422 MPV 8.0 Gran % 78.8 H Lymph % (Auto) 12.1 L [place] % (Auto) 7.2 H Eos % (Auto) 1.8 Baso % (Auto) 0.1 Gran # 12.47 H Lymph # (Auto) 1.9 [place] # (Auto) 1.1 H Eos # (Auto) 0.3 Baso # (Auto) 0.02 Sodium 123 L Potassium 4.4 Chloride 87 L Carbon Dioxide 27 Anion Gap 13 BUN 8 Creatinine 0.4 L Est GFR ( Amer) > 60 Est GFR (Non-Af Amer) > 60 POC Glucose (mg/dL) 136 H Random Glucose 137 H Calcium 8.6 Total Bilirubin 0.5 AST 35 ALT 20 Alkaline Phosphatase 123 Total Protein 7.4 Albumin 3.7 Globulin 3.7 Albumin/Globulin Ratio 1.0 L 07/14/18 07/14/18 11:50 16:16 WBC RBC Hgb Hct MCV MCH MCHC RDW Plt Count MPV Gran % Lymph % (Auto) [place] % (Auto) Eos % (Auto) Baso % (Auto) Gran # Lymph # (Auto) [place] # (Auto) Eos # (Auto) Baso # (Auto) Sodium Potassium Chloride Carbon Dioxide Anion Gap BUN Creatinine Est GFR ( Amer) Est GFR (Non-Af Amer) POC Glucose (mg/dL) 154 H 148 H Random Glucose Calcium Total Bilirubin AST ALT Alkaline Phosphatase Total Protein Albumin Globulin Albumin/Globulin Ratio Assessment & Plan (1) Hyponatremia Assessment and Plan: Acute on chronic; euvolemic on exam and no evidence of volume depletion; with high urine osmolality consistent high ADH activity (increased level and/or increased ADH sensitivity) thought to be secondary to trileptal use for seizure disorder; review of outpatient labs reveals serum Na in mid-120's to 130 over past few months; can be contributing to patient's history of falls; Current worsening of hyponatremia during this admission is secondary to administration of IVF with subsequent desalination due to above-mentioned etiology; -Giving single dose of tolvaptan 15 mg today; -Checking repeat urine osm tonight; -Regarding anti-epileptic med (particularly trileptal), patient will need to d iscuss with her outpatient neurologist regarding other possible options; otherwise, patient educated that chcf she will benefit from fluid restriction; may have to consider tolvaptan as outpatient; Status: Acute (2) HTN (hypertension) Assessment and Plan: BP elevated though review of outpatient records show BP <= 130/80; will continue current regimen of atenolol and lisnopril; Status: Acute
[2018-07-15 00:29] LABS: SOURCE: WHOLE BLOOD
[2018-07-15 06:33] LABS: BASO # 0.02 K/mm3 (0.0-2.0); BASO % 0.2 % (0.0-3.0); EOS # 0.3 (0.0-0.7); EOS % 2.9 % (1.5-5.0); GRAN # 7.62 (1.4-6.5); GRAN % 66.7 % (50.0-68.0); HEMOGLOBIN 9.2 g/dL (12.0-16.0); LYMPH # 2.2 (1.2-3.4); LYMPH % 19.4 % (22.0-35.0); MEAN CELL VOLUME 81.4 fl (80.0-105.0); MEAN CORPUSCULAR HEMOGLOBIN 25.6 pg (25.0-35.0); MEAN CORPUSCULAR HGB CONC 31.4 g/dl (31.0-37.0); MEAN PLATELET VOLUME 8.1 fl (7.0-11.0); MONO # 1.2 (0.1-0.6); MONO % 10.8 % (1.0-6.0); RBC 3.6 10^6/uL (3.5-6.1); RED CELL DISTRIBUTION WIDTH 20.8 % (11.5-14.5); WHITE BLOOD COUNT 11.4 10^3/ul (4.5-11.0)
[2018-07-15 06:50] LABS: ALBUMIN 3.5 g/dL (3.0-4.8); ALT/SGPT 19 U/L (7-56); AST/SGOT 30 U/L (14-36); BLOOD UREA NITROGEN 11 mg/dL (7-21); CALCIUM 9.1 mg/dL (8.4-10.5); GFR NON-AFRICAN AMERICAN > 60
[2018-07-15] MEDS: Insulin Reg-LOW-Coverage SC SCH ×4 (08:00→21:37)
--- NOTE | 2018-07-15 10:09 | CP.PCM.PN ---
Subjective - Date & Time of Evaluation Date of Evaluation: 07/15/18 Time of Evaluation: 07:10 - Subjective Subjective: Lying in bed, no distress, awake, denies chest pain,denies shortness of breath Reason for consultation and follow up: Cardiac evaluation of coronary artery disease, history of coronary stents,History of hypertension, diabetes mellitu s,hyperlipidemia,iron deficiency anemia, on iron infusions,admitted due to low hemoglobin severe anemia. Seen and examined by me and Dr. Kerr Objective - Vital Signs/Intake and Output Vital Signs (last 24 hours): Temp Pulse Resp BP Pulse Ox 98.5 F 81 18 125/60 97 07/15/18 06:00 07/15/18 09:40 07/15/18 06:00 07/15/18 09:40 07/15/18 06:00 Intake and Output: 07/15/18 07/15/18 06:59 18:59 Intake Total 960 Balance 960 - Medications Medications: Current Medications Acetaminophen (Tylenol 325mg Tab) 650 mg PO Q6H PRN PRN Reason: Headache Last Admin: 07/14/18 06:40 Dose: 650 mg Atenolol (Tenormin) 50 mg PO DAILY [facility] Last Admin: 07/15/18 09:40 Dose: 50 mg Docusate Sodium (Colace) 100 mg PO BID [facility] Last Admin: 07/15/18 09:43 Dose: 100 mg Gabapentin (Neurontin) 300 mg PO BID [facility]; Protocol Last Admin: 07/15/18 09:43 Dose: 300 mg Insulin Detemir (Levemir) 10 unit SC HS [facility] Last Admin: 07/14/18 21:45 Dose: 10 unit Insulin Human Regular (Humulin R Low) 0 units SC ACHS [facility]; Protocol Last Admin: 07/14/18 22:22 Dose: Not Given Levetiracetam (Keppra) 750 mg PO Q12 [facility] Last Admin: 07/15/18 09:42 Dose: 750 mg Lisinopril (Zestril) 10 mg PO DAILY [facility] Last Admin: 07/15/18 09:43 Dose: 10 mg Lorazepam (Ativan) 2 mg IVP Q6H PRN; Protocol PRN Reason: Anxiety Meclizine HCl (Antivert) 25 mg PO Q8H PRN PRN Reason: Dizziness Oxcarbazepine (Trileptal) 600 mg PO BID [facility] Last Admin: 07/15/18 09:41 Dose: 600 mg Pantoprazole Sodium (Protonix Inj) 40 mg IVP Q12 [facility] Last Admin: 07/15/18 09:40 Dose: 40 mg Polyethylene Glycol (Miralax) 17 gm PO BID [facility] Last Admin: 07/14/18 17:27 Dose: Not Given - Labs Labs: 07/15/18 05:00 07/15/18 05:00 PT 12.0 SECONDS (9.4-12.5) 07/11/18 17:05 INR 1.05 07/11/18 17:05 APTT 36.6 Seconds (25.1-36.5) H 07/11/18 17:05 - Constitutional Appears: Non-toxic, No Acute Distress - Head Exam Head Exam: NORMAL INSPECTION, NORMOCEPHALIC - Eye Exam Eye Exam: Normal appearance Pupil Exam: NORMAL ACCOMODATION - ENT Exam ENT Exam: Mucous Membranes Moist - Respiratory Exam Respiratory Exam: Decreased Breath Sounds, Clear to Ausculation Bilateral, NORMAL BREATHING PATTERN - Cardiovascular Exam Cardiovascular Exam: +S1, +S2 - GI/Abdominal Exam GI & Abdominal Exam: Soft, Normal Bowel Sounds - Neurological Exam Neurological Exam: Alert, Awake, Oriented x3 - Psychiatric Exam Psychiatric exam: Normal Affect, Normal Mood - Skin Skin Exam: Dry, Normal Color, Warm Assessment and Plan - Assessment and Plan (Free Text) Assessment: A 72 year old female who was sent to the ER by Dr. Brock due to low hemoglobin and hematocrit. She was supposed to have iron infusion. History of hypertension, diabetes mellitus type 2,dizziness (on antivert), hyperlipidemia,iron deficiency anemia, on iron infusions,seizure disorder,tubal ligation, partial hysterectomy, coronary artery disease with stents of the circumflex (2013 and 2017). Hgb/Hematocrit on admission 5.9/19.7. transfused 2 unit PRBC.Hold Aspirin and Plavix for now until hemoglobin and hematocrit stabilizes,Will discontinue Plavix and continue ASA 81 mg daily. (its been almost a year since last PTCA). Clinically stable, discontinued telemetry.H/H stable. Hyponatremia- 120's. given 0.33% saline, seen [place] Nephrology and given Tolvaptan, repeat sodium level 136 today. Review of previous cardiac work up at [facility] [place]: 02/27/17- Cardiac catheterization with stent Single vessel CAD of the Proximal and mid Circumflex ( in stent re-stenosis previous stent 03/31/2014) Single long stent LOBITO to proximal and distal circumflex LVEF 55-60% 02/06/17- Stress test done- abnormal, positive for ischemia requiring cardiac catheterization on 03/09/17. Plan: Cardiac status stable No distress, Denies chest pain Heart rate and blood pressure stable Will discontinue Plavix ASA 81 mg daily On Tenormin 50 mg daily, Keprra 500 mg BID, Lisinopril 10 mg daily, Antivert 25 mg every 8 hours. Protonix 40 mg IV every 12 hours Sodium today 136 after Tolvaptan dose ordered by Renal Continue current treatment Continue current medications Chart reviewed Will follow up Plan and treatment discussed with Dr. Kerr
[2018-07-15 11:34] LABS: BLOOD UREA NITROGEN 11 mg/dL (7-21); GFR NON-AFRICAN AMERICAN > 60
[2018-07-15] MEDS: POLYETHYLENE GLYCOL 3350 17 GM/Dose PACKET PO SCH ×2 (12:00→17:43)
--- NOTE | 2018-07-15 12:37 | CP.PCM.PN ---
<BanameliaFord - Last Filed: 07/15/18 12:34> Subjective - Date & Time of Evaluation Date of Evaluation: 07/15/18 Time of Evaluation: 12:34 - Subjective Subjective: Patient is doing well. Complains of new seizures meds. Refusing to have push enteroscopy. She wants to go home. Demanding to see primary neurologist. Objective - Vital Signs/Intake and Output Vital Signs (last 24 hours): Temp Pulse Resp BP Pulse Ox 98.5 F 81 18 125/60 97 07/15/18 06:00 07/15/18 09:40 07/15/18 06:00 07/15/18 09:40 07/15/18 06:00 Intake and Output: 07/15/18 07/15/18 06:59 18:59 Intake Total 960 Balance 960 - Medications Medications: Current Medications Acetaminophen (Tylenol 325mg Tab) 650 mg PO Q6H PRN PRN Reason: Headache Last Admin: 07/14/18 06:40 Dose: 650 mg Aspirin (Ecotrin) 81 mg PO DAILY [facility] Last Admin: 07/15/18 12:17 Dose: 81 mg Atenolol (Tenormin) 50 mg PO DAILY [facility] Last Admin: 07/15/18 09:40 Dose: 50 mg Docusate Sodium (Colace) 100 mg PO BID [facility] Last Admin: 07/15/18 09:43 Dose: 100 mg Gabapentin (Neurontin) 300 mg PO BID [facility]; Protocol Last Admin: 07/15/18 09:43 Dose: 300 mg Insulin Detemir (Levemir) 10 unit SC HS [facility] Last Admin: 07/14/18 21:45 Dose: 10 unit Insulin Human Regular (Humulin R Low) 0 units SC ACHS [facility]; Protocol Last Admin: 07/15/18 12:12 Dose: 2 unit Levetiracetam (Keppra) 1,000 mg PO Q12 [facility] Lisinopril (Zestril) 10 mg PO DAILY [facility] Last Admin: 07/15/18 09:43 Dose: 10 mg Lorazepam (Ativan) 2 mg IVP Q6H PRN; Protocol PRN Reason: Anxiety Meclizine HCl (Antivert) 25 mg PO Q8H PRN PRN Reason: Dizziness Oxcarbazepine (Trileptal) 600 mg PO BID [facility] Last Admin: 07/15/18 09:41 Dose: 600 mg Pantoprazole Sodium (Protonix Inj) 40 mg IVP Q12 [facility] Last Admin: 07/15/18 09:40 Dose: 40 mg Polyethylene Glycol (Miralax) 17 gm PO BID [facility] Last Admin: 07/15/18 12:00 Dose: Not Given - Labs Labs: 07/15/18 05:00 07/15/18 11:00 PT 12.0 SECONDS (9.4-12.5) 07/11/18 17:05 INR 1.05 07/11/18 17:05 APTT 36.6 Seconds (25.1-36.5) H 07/11/18 17:05 - Constitutional Appears: Non-toxic - Head Exam Head Exam: NORMAL INSPECTION - Eye Exam Eye Exam: Normal appearance - ENT Exam ENT Exam: Mucous Membranes Moist - Respiratory Exam Respiratory Exam: Clear to Ausculation Bilateral, NORMAL BREATHING PATTERN - Cardiovascular Exam Cardiovascular Exam: REGULAR RHYTHM, +S1, +S2 - GI/Abdominal Exam GI & Abdominal Exam: Soft, Normal Bowel Sounds. absent: Tenderness - Extremities Exam Extremities Exam: Normal Inspection - Neurological Exam Neurological Exam: Alert, Awake, Oriented x3 - Psychiatric Exam Psychiatric exam: Normal Affect, Normal Mood - Skin Skin Exam: Dry, Normal Color Assessment and Plan - Assessment and Plan (Free Text) Assessment: # Acute on Chronic Microcytic Anemia: Stable post PRBCs 2 units. Suspect related to occult small bowel source. Recent EGD+CSPY on 06/07/18 without clear source. Diverticulosis seen though and can bleed but usually hematochezia is seen. Hemoccult negative in ED, ruling out active bleeding. 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 On Omeprazole 20 mg QD # Sigmoid tubular adenoma: 10 mm. s/p resection 06/07/18. Due for repeat CSPY in 2020 given TA greater than or equal to 10 mm. #Euvolemic hyponatremia - likely medication induced, trileptal Plan: - CT Abd+Pelvix with PO+IV contrast without clear source - Originally planned for push enteroscopy, but sodium unexpectedly low now im proved after medication changes - Patient can have push enteroscopy as outpt. - Cont with Hematology, nephro and neuro f/u - Outpatient VCE if push enteroscopy negative <Marlin,Kovil V - Last Filed: 07/15/18 23:46> Objective - Vital Signs/Intake and Output Vital Signs (last 24 hours): Temp Pulse Resp BP Pulse Ox 98.3 F 75 20 128/63 95 07/15/18 22:52 07/15/18 22:52 07/15/18 22:52 07/15/18 22:52 07/15/18 22:52 Intake and Output: 07/15/18 07/16/18 18:59 06:59 Intake Total 2280 Output Total 700 Balance 1580 - Medications Medications: Current Medications Acetaminophen (Tylenol 325mg Tab) 650 mg PO Q6H PRN PRN Reason: Headache Last Admin: 07/14/18 06:40 Dose: 650 mg Aspirin (Ecotrin) 81 mg PO DAILY [facility] Last Admin: 07/15/18 12:17 Dose: 81 mg Atenolol (Tenormin) 50 mg PO DAILY [facility] Last Admin: 07/15/18 09:40 Dose: 50 mg Docusate Sodium (Colace) 100 mg PO BID [facility] Last Admin: 07/15/18 17:40 Dose: Not Given Gabapentin (Neurontin) 300 mg PO BID [facility]; Protocol Last Admin: 07/15/18 17:46 Dose: 300 mg Insulin Detemir (Levemir) 10 unit SC HS [facility] Last Admin: 07/15/18 21:42 Dose: 10 unit Insulin Human Regular (Humulin R Low) 0 units SC [facility]; Protocol Last Admin: 07/15/18 21:37 Dose: Not Given Levetiracetam (Keppra) 1,000 mg PO Q12 [facility] Last Admin: 07/15/18 21:26 Dose: 1,000 mg Lisinopril (Zestril) 10 mg PO DAILY [facility] Last Admin: 07/15/18 09:43 Dose: 10 mg Lorazepam (Ativan) 2 mg IVP Q6H PRN; Protocol PRN Reason: Anxiety Meclizine HCl (Antivert) 25 mg PO Q8H PRN PRN Reason: Dizziness Oxcarbazepine (Trileptal) 600 mg PO BID [facility] Last Admin: 07/15/18 17:46 Dose: 600 mg Pantoprazole Sodium (Protonix Inj) 40 mg IVP Q12 [facility] Last Admin: 07/15/18 21:25 Dose: 40 mg Polyethylene Glycol (Miralax) 17 gm PO BID [facility] Last Admin: 07/15/18 17:43 Dose: Not Given - Labs Labs: 07/15/18 05:00 07/15/18 11:00 PT 12.0 SECONDS (9.4-12.5) 07/11/18 17:05 INR 1.05 07/11/18 17:05 APTT 36.6 Seconds (25.1-36.5) H 07/11/18 17:05 Attending/Attestation - Attestation I have personally seen and examined this patient.: Yes I have fully participated in the care of the patient.: Yes I have reviewed all pertinent clinical information, including history, physical exam and plan: Yes Notes (Text): This is an addendum to GI progress report dictated by the GI Fellow.The patient was seen and examined earlier. Medical records, lab studies, imagings were reviewed. Last 24 hours events reviewed. Agreed with the above treatment plan as outlined in GI Fellow 's notes with the addition of the following No episodes of melena or BRPR Followup hb high dose PPI Repeat EGD in two months 07/15/18 23:46
--- NOTE | 2018-07-15 14:02 | CP.PCM.PN ---
<MarcellusTyreeata - Last Filed: 07/15/18 13:58> Subjective - Date & Time of Evaluation Date of Evaluation: 07/15/18 Time of Evaluation: 13:59 - Subjective Subjective: PGY-1 Medicine Progress Note for Dr. Monzon's service Patient seen and examined at bedside. Patient had multiple questions about medication adjustments. I discussed personally her whole medical plan as patient had multiple questions about trileptal. She wanted an information packet about this medication and included side effects. Patient denies fevers, chills, chest pain, sob, n/v, constipation or diarrhea, dysuria. Objective - Vital Signs/Intake and Output Vital Signs (last 24 hours): Temp Pulse Resp BP Pulse Ox 98.5 F 81 18 125/60 97 07/15/18 06:00 07/15/18 09:40 07/15/18 06:00 07/15/18 09:40 07/15/18 06:00 Intake and Output: 07/15/18 07/15/18 06:59 18:59 Intake Total 960 580 Balance 960 580 - Medications Medications: Current Medications Acetaminophen (Tylenol 325mg Tab) 650 mg PO Q6H PRN PRN Reason: Headache Last Admin: 07/14/18 06:40 Dose: 650 mg Aspirin (Ecotrin) 81 mg PO DAILY [facility] Last Admin: 07/15/18 12:17 Dose: 81 mg Atenolol (Tenormin) 50 mg PO DAILY [facility] Last Admin: 07/15/18 09:40 Dose: 50 mg Docusate Sodium (Colace) 100 mg PO BID [facility] Last Admin: 07/15/18 09:43 Dose: 100 mg Gabapentin (Neurontin) 300 mg PO BID [facility]; Protocol Last Admin: 07/15/18 09:43 Dose: 300 mg Insulin Detemir (Levemir) 10 unit SC HS [facility] Last Admin: 07/14/18 21:45 Dose: 10 unit Insulin Human Regular (Humulin R Low) 0 units SC ACHS [facility]; Protocol Last Admin: 07/15/18 12:12 Dose: 2 unit Levetiracetam (Keppra) 1,000 mg PO Q12 [facility] Lisinopril (Zestril) 10 mg PO DAILY [facility] Last Admin: 07/15/18 09:43 Dose: 10 mg Lorazepam (Ativan) 2 mg IVP Q6H PRN; Protocol PRN Reason: Anxiety Meclizine HCl (Antivert) 25 mg PO Q8H PRN PRN Reason: Dizziness Oxcarbazepine (Trileptal) 600 mg PO BID [facility] Last Admin: 07/15/18 09:41 Dose: 600 mg Pantoprazole Sodium (Protonix Inj) 40 mg IVP Q12 [facility] Last Admin: 07/15/18 09:40 Dose: 40 mg Polyethylene Glycol (Miralax) 17 gm PO BID [facility] Last Admin: 07/15/18 12:00 Dose: Not Given - Labs Labs: 07/15/18 05:00 07/15/18 11:00 PT 12.0 SECONDS (9.4-12.5) 07/11/18 17:05 INR 1.05 07/11/18 17:05 APTT 36.6 Seconds (25.1-36.5) H 07/11/18 17:05 - Additional Findings Additional findings: - Constitutional Appears: Non-toxic, No Acute Distress - Head Exam Head Exam: NORMAL INSPECTION, NORMOCEPHALIC - Eye Exam Eye Exam: EOMI, Normal appearance. absent: Nystagmus, Scleral icterus - Respiratory Exam Respiratory Exam: Clear to Ausculation Bilateral, NORMAL BREATHING PATTERN. absent: Rales, Rhonchi, Wheezes - Cardiovascular Exam Cardiovascular Exam: REGULAR RHYTHM, +S1, +S2. absent: Tachycardia - GI/Abdominal Exam GI & Abdominal Exam: Soft, Normal Bowel Sounds. absent: Distended, Firm, Guarding, Rigid, Tenderness - Extremities Exam Extremities Exam: Normal Inspection. absent: Calf Tenderness, Pedal Edema - Neurological Exam Neurological Exam: Alert, Awake, Oriented x3 - Psychiatric Exam Psychiatric exam: Normal Affect, Normal Mood - Skin Skin Exam: Intact, Normal Color Assessment and Plan - Assessment and Plan (Free Text) Assessment: 72 y/o female PMHx HTN, DM2, CAD s/p 2 stents(2016, 2014), HLD, CHERRY, seizure disorder, positional vertigo, iron deficiency anemia, admitted for asymptomatic anemia, Hgb: 5.9 after iron infusion. 2 units of pRBCs were given and patient H&H have been stable. GI recommended patient have push endoscopy done prior to discharge. Patient made NPO for procedure in AM. GI team was notified. Plan: Acute on Chronic Fe Deficiency anemia FOBT negative in ED Transfused with 2 units of pRBC; H&H stable EGD showed Larose's Esophagus in 06/12 Hold dual antiplatelet therapy as possible source of bleed Consult Hem - Dr. Brock- recommendations appreciated Consult GI- Dr. Isaac- outpatient video capsule endoscopy as patient had recent EGD/CSPY; Push endoscopy inpatient Hemodynamically stable Push endoscopy as per GI scheduled for AM- Patient made NPO for procedure Hyponatremia Nephro Consulted- Dr. Cuellar- appreciate recommendations likely SIADH 2/2 to trileptal- resolved Trileptal being tapered down to 600mg po bid (next day 300mg bid, after that 150mg bid) Repeat CMP in AM Hx of CAD s/p 2x stent placement Hold dual antiplatelet therapy for now - possible cause of anemia- continue aspirin Consult cardio- Dr. Kerr- recommendations appreciated regarding restarting antiplatelet therapy Dizziness likely secondary to anemia; Resolved with repletion through pRBCs PT/OT- Home with services c/w home Meclizine HTN Consider increasing dose if elevated blood pressures persist Lisinopril 10 mg po daily Atenolol 50mg po daily Seizure disorder Neuro Consulted- Dr. Oliveira- recommendations appreciated Keppra 750mg po bid Trileptal held in setting of hyponatremia worsening Hx of DM Levemir 10 units HS low ISS Accuchecks Gabapentin 300mg po bid PPX Protonix 40 IVP BID SCDs; due to bleed, hold dual anti-platelet therapy due to bleeding risk Medical Management discussed with Dr. Monzon PGY-1 Wes Germain <Chris Monzon - Last Filed: 07/15/18 14:57> Objective - Vital Signs/Intake and Output Vital Signs (last 24 hours): Temp Pulse Resp BP Pulse Ox 98.5 F 69 20 102/57 L 97 07/15/18 14:49 07/15/18 14:49 07/15/18 14:49 07/15/18 14:49 07/15/18 14:49 Intake and Output: 07/15/18 07/15/18 06:59 18:59 Intake Total 960 580 Balance 960 580 - Medications Medications: Current Medications Acetaminophen (Tylenol 325mg Tab) 650 mg PO Q6H PRN PRN Reason: Headache Last Admin: 07/14/18 06:40 Dose: 650 mg Aspirin (Ecotrin) 81 mg PO DAILY [facility] Last Admin: 07/15/18 12:17 Dose: 81 mg Atenolol (Tenormin) 50 mg PO DAILY [facility] Last Admin: 07/15/18 09:40 Dose: 50 mg Docusate Sodium (Colace) 100 mg PO BID [facility] Last Admin: 07/15/18 09:43 Dose: 100 mg Gabapentin (Neurontin) 300 mg PO BID [facility]; Protocol Last Admin: 07/15/18 09:43 Dose: 300 mg Insulin Detemir (Levemir) 10 unit SC HS [facility] Last Admin: 07/14/18 21:45 Dose: 10 unit Insulin Human Regular (Humulin R Low) 0 units SC [facility]; Protocol Last Admin: 07/15/18 12:12 Dose: 2 unit Levetiracetam (Keppra) 1,000 mg PO Q12 [facility] Lisinopril (Zestril) 10 mg PO DAILY [facility] Last Admin: 07/15/18 09:43 Dose: 10 mg Lorazepam (Ativan) 2 mg IVP Q6H PRN; Protocol PRN Reason: Anxiety Meclizine HCl (Antivert) 25 mg PO Q8H PRN PRN Reason: Dizziness Oxcarbazepine (Trileptal) 600 mg PO BID [facility] Last Admin: 07/15/18 09:41 Dose: 600 mg Pantoprazole Sodium (Protonix Inj) 40 mg IVP Q12 [facility] Last Admin: 07/15/18 09:40 Dose: 40 mg Polyethylene Glycol (Miralax) 17 gm PO BID [facility] Last Admin: 07/15/18 12:00 Dose: Not Given - Labs Labs: 07/15/18 05:00 07/15/18 11:00 PT 12.0 SECONDS (9.4-12.5) 07/11/18 17:05 INR 1.05 07/11/18 17:05 APTT 36.6 Seconds (25.1-36.5) H 07/11/18 17:05 Attending/Attestation - Attestation I have personally seen and examined this patient.: Yes I have fully participated in the care of the patient.: Yes I have reviewed all pertinent clinical information, including history, physical exam and plan: Yes Notes (Text): 07/15/18 14:52 Medical record note made by the resident after discussion with my direction and input after the patient was personally seen and examined by me. I have reviewed the chart and agree that the record accurately reflects by personal performance of the history, physical exam, data review, and medical decision-making, in the course for the patient. I have also personally directed the plan of care. 72 yrs old female PMHx HTN, DM2, CAD s/p 2 stents(2016, 2014), HLD, Iron deficiency anemia , seizure disorder, positional vertigo,was ,admitted for anemia. Hemoglobin was 5.9 She is SP 2 units of PRBC.Hemoglobin improved to 8.9 and is stable. Patient is SP EGD 06/07/18 showed Larose's Esophagus, Colonoscopy last month was also unremarkable. There is no active bleeding.Hemoglobin is stable AFTER 2 UNITS of PRBC.Patient is asymptomatic.GI recommended patient have push endoscopy done prior to discharge. Patient deveoped hyponatremia is due to SIADH due to Trileptal, worsened by IV fluid. Patient is asymptomatic.Neurology evaluated the patient and has recommended tapered down and DC triletal, Keppra is increased to 1000 mg BID.Na 132 this afternoon.Patient is stable. Patient is agreeable to stay over night now, we will keep her NPO after mid night for push endoscopy tomorrow.
[2018-07-15] MEDS: Insulin Detemir 100 units/ml Vial (Levemir) SC SCH (21:42)
--- NOTE | 2018-07-16 06:36 | CP.PCM.PN ---
Subjective - Date & Time of Evaluation Date of Evaluation: 07/16/18 Time of Evaluation: 06:25 - Subjective Subjective: Lying in bed, no distress, awake, denies chest pain, denies shortness of breath, for endoscopy today Reason for consultation and follow up: Cardiac evaluation of coronary artery disease, history of coronary stents,History of hypertension, diabetes mellitus,hyperlipidemia,iron deficiency anemia, on iron infusions,admitted due to low hemoglobin severe anemia. Seen and examined by me and Dr. Kerr Objective - Vital Signs/Intake and Output Vital Signs (last 24 hours): Temp Pulse Resp BP Pulse Ox 98.3 F 75 20 128/63 95 07/15/18 22:52 07/15/18 22:52 07/15/18 22:52 07/15/18 22:52 07/15/18 22:52 Intake and Output: 07/15/18 07/16/18 18:59 06:59 Intake Total 2280 Output Total 700 Balance 1580 - Medications Medications: Current Medications Acetaminophen (Tylenol 325mg Tab) 650 mg PO Q6H PRN PRN Reason: Headache Last Admin: 07/14/18 06:40 Dose: 650 mg Aspirin (Ecotrin) 81 mg PO DAILY [facility] Last Admin: 07/15/18 12:17 Dose: 81 mg Atenolol (Tenormin) 50 mg PO DAILY [facility] Last Admin: 07/15/18 09:40 Dose: 50 mg Docusate Sodium (Colace) 100 mg PO BID [facility] Last Admin: 07/15/18 17:40 Dose: Not Given Gabapentin (Neurontin) 300 mg PO BID [facility]; Protocol Last Admin: 07/15/18 17:46 Dose: 300 mg Insulin Detemir (Levemir) 10 unit SC HS [facility] Last Admin: 07/15/18 21:42 Dose: 10 unit Insulin Human Regular (Humulin R Low) 0 units SC [facility]; Protocol Last Admin: 07/15/18 21:37 Dose: Not Given Levetiracetam (Keppra) 1,000 mg PO Q12 [facility] Last Admin: 07/15/18 21:26 Dose: 1,000 mg Lisinopril (Zestril) 10 mg PO DAILY [facility] Last Admin: 07/15/18 09:43 Dose: 10 mg Lorazepam (Ativan) 2 mg IVP Q6H PRN; Protocol PRN Reason: Anxiety Meclizine HCl (Antivert) 25 mg PO Q8H PRN PRN Reason: Dizziness Oxcarbazepine (Trileptal) 600 mg PO BID [facility] Last Admin: 07/15/18 17:46 Dose: 600 mg Pantoprazole Sodium (Protonix Inj) 40 mg IVP Q12 [facility] Last Admin: 07/15/18 21:25 Dose: 40 mg Polyethylene Glycol (Miralax) 17 gm PO BID [facility] Last Admin: 07/15/18 17:43 Dose: Not Given - Labs Labs: 07/15/18 05:00 07/15/18 11:00 PT 12.0 SECONDS (9.4-12.5) 07/11/18 17:05 INR 1.05 07/11/18 17:05 APTT 36.6 Seconds (25.1-36.5) H 07/11/18 17:05 - Constitutional Appears: Non-toxic, No Acute Distress - Head Exam Head Exam: NORMAL INSPECTION, NORMOCEPHALIC - Eye Exam Eye Exam: Normal appearance Pupil Exam: NORMAL ACCOMODATION - ENT Exam ENT Exam: Mucous Membranes Moist, Normal Exam - Respiratory Exam Respiratory Exam: Clear to Ausculation Bilateral, NORMAL BREATHING PATTERN - Cardiovascular Exam Cardiovascular Exam: +S1, +S2 - GI/Abdominal Exam GI & Abdominal Exam: Soft, Normal Bowel Sounds - Extremities Exam Extremities Exam: Full ROM, Normal Capillary Refill - Neurological Exam Neurological Exam: Alert, Awake, Oriented x3 - Psychiatric Exam Psychiatric exam: Normal Affect, Normal Mood - Skin Skin Exam: Dry, Normal Color, Warm Assessment and Plan - Assessment and Plan (Free Text) Assessment: A 72 year old female who was sent to the ER by Dr. Brock due to low hemoglobin and hematocrit. She was supposed to have iron infusion. History of hypertension, diabetes mellitus type 2,dizziness (on antivert), hyperlipidemia,iron deficiency anemia, on iron infusions,seizure disorder,tubal ligation, partial hysterectomy, coronary artery disease with stents of the circumflex (2014 and 2 017). Hgb/Hematocrit on admission 5.9/19.7. transfused 2 unit PRBC.Hold Aspirin and Plavix for now until hemoglobin and hematocrit stabilizes,Will discontinue Plavix and continue ASA 81 mg daily. (its been almost a year since last PTCA). Clinically stable, discontinued telemetry.H/H stable. Hyponatremia- 120's. given 0.33% saline, seen [place] Nephrology and given Tolvaptan, repeat sodium level 136 to day.For endoscopy today. Plan: For endoscopy today Cardiac status stable No distress, Denies chest pain Heart rate and blood pressure stable Will discontinue Plavix Continue ASA 81 mg daily On Tenormin 50 mg daily, Keprra 1000 mg BID, Lisinopril 10 mg daily, Antivert 25 mg every 8 hours. Protonix 40 mg IV every 12 hours Hyponatremia due to Trileptal,weaned off and Keppra dose increased Sodium stabilized after Tolvaptan dose Continue current treatment Continue current medications Chart reviewed Will follow up Plan and treatment discussed with Dr. Luque
[2018-07-16] MEDS: Insulin Reg-LOW-Coverage SC SCH ×3 (08:21→18:15)
--- NOTE | 2018-07-16 08:55 | CP.PCM.PN ---
Subjective - Date & Time of Evaluation Date of Evaluation: 07/16/18 Time of Evaluation: 09:30 - Subjective Subjective: Prakash Dean Internal Medicine Resident Progress Note on Behalf of Neurology Team Subjective: Patient seen and examined. No acute events overnight. Admits to nonproductive cough. Denies weakness, dizziness, fever, chills, chest pain, shortness of breath, and neurological deficits. 12 point ROS negative except as indicated in HPI. Physical Examination: - Constitutional Appears: Non-toxic, No Acute Distress - Head Exam Head Exam: NORMAL INSPECTION, NORMOCEPHALIC - Eye Exam Eye Exam: EOMI, Normal appearance. absent: Nystagmus, Scleral icterus - Respiratory Exam Respiratory Exam: Clear to Ausculation Bilateral, NORMAL BREATHING PATTERN. absent: Rales, Rhonchi, Wheezes - Cardiovascular Exam Cardiovascular Exam: REGULAR RHYTHM, +S1, +S2. absent: Tachycardia - GI/Abdominal Exam GI & Abdominal Exam: Soft, Normal Bowel Sounds. absent: Distended, Firm, Guarding, Rigid, Tenderness - Extremities Exam Extremities Exam: Normal Inspection. absent: Calf Tenderness, Pedal Edema - Neurological Exam Neurological Exam: Alert, Awake, Oriented x3, responds to verbal stimuli, follows commands, and moves extremities past midline, muscle strength 5/5 bilateral upper and lower extremities, sensation intact throughout to touch - Psychiatric Exam Psychiatric exam: Normal Affect, Normal Mood - Skin Skin Exam: Intact, Normal Color Assessment and Plan: Patient is a 72 year old female with a past medical history of HTN, DM2, CAD s/p 2 stents(2016, 2014), HLD, CHERRY, seizure disorder, positional vertigo, iron deficiency anemia who was admitted for asymptomatic anemia. Neurology team was consulted for trileptal induced hyponatremia. Hyponatremia - secondary to trileptal use, sodium 132 on 07/16, monitor closely via daily bmp - continue to taper down trileptal by 300 bid 300 mg bid pm 07/16/2018, 150 mg bid 07/17/2018, then discontinue - Keppra started at 1000 mg originally, continue on 1000 mg bid - no further in patient neurological intervention required at this time Patient case discussed with attending physician, Dr. Oliveira. Objective - Vital Signs/Intake and Output Vital Signs (last 24 hours): Temp Pulse Resp BP Pulse Ox 98.2 F 82 20 144/83 95 07/16/18 06:00 07/16/18 06:00 07/16/18 06:00 07/16/18 06:00 07/16/18 06:00 - Medications Medications: Current Medications Acetaminophen (Tylenol 325mg Tab) 650 mg PO Q6H PRN PRN Reason: Headache Last Admin: 07/14/18 06:40 Dose: 650 mg Aspirin (Ecotrin) 81 mg PO DAILY [facility] Last Admin: 07/15/18 12:17 Dose: 81 mg Atenolol (Tenormin) 50 mg PO DAILY [facility] Last Admin: 07/15/18 09:40 Dose: 50 mg Docusate Sodium (Colace) 100 mg PO BID [facility] Last Admin: 07/15/18 17:40 Dose: Not Given Gabapentin (Neurontin) 300 mg PO BID [facility]; Protocol Last Admin: 07/15/18 17:46 Dose: 300 mg Insulin Detemir (Levemir) 10 unit SC HS [facility] Last Admin: 07/15/18 21:42 Dose: 10 unit Insulin Human Regular (Humulin R Low) 0 units SC [facility]; Protocol Last Admin: 07/16/18 08:21 Dose: Not Given Levetiracetam (Keppra) 1,000 mg PO Q12 [facility] Last Admin: 07/15/18 21:26 Dose: 1,000 mg Lisinopril (Zestril) 10 mg PO DAILY [facility] Last Admin: 07/15/18 09:43 Dose: 10 mg Lorazepam (Ativan) 2 mg IVP Q6H PRN; Protocol PRN Reason: Anxiety Meclizine HCl (Antivert) 25 mg PO Q8H PRN PRN Reason: Dizziness Oxcarbazepine (Trileptal) 600 mg PO BID [facility] Last Admin: 07/15/18 17:46 Dose: 600 mg Pantoprazole Sodium (Protonix Inj) 40 mg IVP Q12 [facility] Last Admin: 07/15/18 21:25 Dose: 40 mg Polyethylene Glycol (Miralax) 17 gm PO BID [facility] Last Admin: 07/15/18 17:43 Dose: Not Given - Labs Labs: 07/15/18 05:00 07/15/18 11:00 PT 12.0 SECONDS (9.4-12.5) 07/11/18 17:05 INR 1.05 07/11/18 17:05 APTT 36.6 Seconds (25.1-36.5) H 07/11/18 17:05
--- NOTE | 2018-07-16 09:28 | CON ---
DATE: 07/14/2018 NEUROLOGY CONSULTATION This neurology consult was called by Dr. Monzon, hospitalist, for altered mental status and possible seizures. SUBJECTIVE: This is a 72-year-old woman who is admitted on 07/11/2018 with past medical history of hypertension, diabetes type 2, CAD status post 2 stents in [id number], atopy, iron-deficiency anemia, as well as positional vertigo, who was admitted for asymptomatic anemia. She had an extremely low hemoglobin although she is compliant with all of her medications. During this hospital admission, her hemoglobin went up and to a normal level. She had cardiac evaluation for coronary artery disease by Dr. Kerr. She denied any issues and was doing well, but then had intermittent dizziness. However, the patient was maintained on Trileptal and her sodium is extremely low. This has been a chronic issue, although she was asymptomatic. PAST MEDICAL HISTORY AND PAST SURGICAL HISTORY: As stated above. FAMILY HISTORY AND SOCIAL HISTORY: She lives with her family. She has several children. No recent tobacco. No alcohol. ALLERGIES: NO KNOWN DRUG ALLERGIES. LABORATORY DATA: White count 15.8, hematocrit 28.1, hemoglobin 8.9, and platelet count . Chemistry; sodium is 123, potassium is 4.4, chloride is 87, carbon dioxide is 27, random glucose of 137. AST and ALT of 35 and 20 respectively. Urine culture was done and that was normal. There was no new imaging done either. MEDICATIONS: Atenolol, insulin, heparin, Trileptal 900 mg p.o. b.i.d. which she been on chronically. IMPRESSION: This is a 72-year-old woman, who has hyponatremia secondary to Trileptal use. Trileptal was known to be a sodium-channel inhibitor, which has over 30% incidence of chronic hyponatremia, the only way to resolve this was to reduce the Trileptal and to slowly replace the sodium. The sodium should not be corrected more than 1 mL per day to avoid complications of neurological matter. PLAN: Discontinue Trileptal to 600 b.i.d. starting tomorrow and by 300 each day, increase Keppra to 1500 twice a day, this is going to be done as an outpatient basis. However, the patient would like to stay admitted that would be possible as well. EEG on Monday. Thank you for this interesting consult. Nicole Oliveira MD
--- NOTE | 2018-07-16 09:41 | PN ---
DATE: 07/14/2018 LOCATION: The patient is in room 566, bed 2. SUBJECTIVE: The patient is known case of coronary artery disease. The patient on 02/27/2017 was found to have previous peristent stenosis and also restenosis within the stent which was put on 03/31/2014. So there is a new single long drug-eluting stent was put into proximal and middle circumflex and LV ejection fraction was normal at 55-60%. The patient is now admitted with severe anemia. Denies chest pain, shortness of breath or palpitation. WBC 15.8, hemoglobin 8.9, hematocrit 28.9, platelet is 422. Sodium 123, potassium 4.4, BUN 8, creatinine 0.4, sugar 154. The patient has hyponatremia, so we will give 3% sodium chloride 500 mL over 24 hours and repeat labs in the morning and we will continue other medications. The patient is being followed by the Hematology/Oncology for anemia. Cardiac bishop, the patient is stable. We will follow with you. Chris Kerr MD
--- NOTE | 2018-07-16 09:45 | PN ---
DATE: 07/15/2018 Progress note has been already dictated by Lulu Enrique. This is an addendum to the progress note. SUBJECTIVE: The patient was admitted with severe anemia, coronary artery disease, history of stent insertion on 02/27/2017 and the patient clinically asymptomatic from cardiac point of view. Being treated for anemia. The patient yesterday was found to have sodium of 123, 3% sodium chloride 500 mL given. Now, the sodium has come up to 132. The patient's hyponatremia has been corrected. The patient is asymptomatic from cardiac point of view. Continue to treat anemia by Hematology. The patient is on aspirin 81 mg daily, Tenormin 50 mg p.o. daily, Keppra 500 b.i.d., lisinopril 10 mg daily. We will follow with you. Chris Kerr MD
[2018-07-16] MEDS ORDERED: Dextrose 5%/0.9% NS 1,000 ML IV SCH ×2 (10:00→14:45)
[2018-07-16] MEDS: POLYETHYLENE GLYCOL 3350 17 GM/Dose PACKET PO SCH ×2 (10:00→18:31)
[2018-07-16] MEDS ORDERED: Propofol 10 mg/ml Inj (20 ML) ONE (16:15)
--- NOTE | 2018-07-16 16:21 | CP.PCM.PN ---
Subjective - Date & Time of Evaluation Date of Evaluation: 07/16/18 Time of Evaluation: 08:50 - Subjective Subjective: PGY-1 Medicine Progress Note for Dr. Briggs Patient seen and examined at bedside, lying comfortably and in no acute distress. No acute overnight events reported. Feeling well, denies any dizziness or lightheadedness. No fevers/chills, headaches, chest pain, palpitations, sob, cough, abdominal pain, n/v/d/c, hematochezia, dysuria, or changes in stool. Objective - Vital Signs/Intake and Output Vital Signs (last 24 hours): Temp Pulse Resp BP Pulse Ox 98.3 F 65 20 176/70 H 100 07/16/18 15:34 07/16/18 15:34 07/16/18 15:34 07/16/18 15:34 07/16/18 15:34 - Medications Medications: Current Medications Acetaminophen (Tylenol 325mg Tab) 650 mg PO Q6H PRN PRN Reason: Headache Last Admin: 07/14/18 06:40 Dose: 650 mg Aspirin (Ecotrin) 81 mg PO DAILY [facility] Last Admin: 07/16/18 10:00 Dose: Not Given Atenolol (Tenormin) 50 mg PO DAILY [facility] Last Admin: 07/16/18 10:04 Dose: 50 mg Docusate Sodium (Colace) 100 mg PO BID [facility] Last Admin: 07/16/18 09:59 Dose: Not Given Gabapentin (Neurontin) 300 mg PO BID [facility]; Protocol Last Admin: 07/16/18 10:00 Dose: Not Given Dextrose/Sodium Chloride (Dextrose 5%/0.9% Ns 1000 Ml) 1,000 mls @ 20 mls/hr IV .Q24H [facility] Insulin Detemir (Levemir) 10 unit SC HS [facility] Last Admin: 07/15/18 21:42 Dose: 10 unit Insulin Human Regular (Humulin R Low) 0 units SC [facility]; Protocol Last Admin: 07/16/18 12:00 Dose: Not Given Levetiracetam (Keppra) 1,000 mg PO Q12 [facility] Last Admin: 07/16/18 10:04 Dose: 1,000 mg Lisinopril (Zestril) 10 mg PO DAILY [facility] Last Admin: 07/15/18 09:43 Dose: 10 mg Lorazepam (Ativan) 2 mg IVP Q6H PRN; Protocol PRN Reason: Anxiety Meclizine HCl (Antivert) 25 mg PO Q8H PRN PRN Reason: Dizziness Oxcarbazepine (Trileptal) 300 mg PO BID [facility] Pantoprazole Sodium (Protonix Inj) 40 mg IVP Q12 [facility] Last Admin: 07/16/18 10:04 Dose: 40 mg Polyethylene Glycol (Miralax) 17 gm PO BID [facility] Last Admin: 07/16/18 10:00 Dose: Not Given - Labs Labs: 07/15/18 05:00 07/15/18 11:00 PT 12.0 SECONDS (9.4-12.5) 07/11/18 17:05 INR 1.05 07/11/18 17:05 APTT 36.6 Seconds (25.1-36.5) H 07/11/18 17:05 - Constitutional Appears: Well, Non-toxic, No Acute Distress - Head Exam Head Exam: ATRAUMATIC, NORMAL INSPECTION, NORMOCEPHALIC - Eye Exam Eye Exam: EOMI, Normal appearance Pupil Exam: NORMAL ACCOMODATION - ENT Exam ENT Exam: Mucous Membranes Moist, Normal Exam - Neck Exam Neck Exam: Full ROM, Normal Inspection - Respiratory Exam Respiratory Exam: Clear to Ausculation Bilateral, NORMAL BREATHING PATTERN. absent: Accessory Muscle Use, Rales, Rhonchi, Wheezes, Respiratory Distress - Cardiovascular Exam Cardiovascular Exam: REGULAR RHYTHM, +S1, +S2 - GI/Abdominal Exam GI & Abdominal Exam: Soft, Normal Bowel Sounds. absent: Distended, Firm, Guarding, Rigid, Tenderness, Rebound - Extremities Exam Extremities Exam: Full ROM, Normal Capillary Refill, Normal Inspection. absent: Calf Tenderness, Joint Swelling, Pedal Edema - Back Exam Back Exam: NORMAL INSPECTION - Neurological Exam Neurological Exam: Alert, Awake, Oriented x3 - Psychiatric Exam Psychiatric exam: Normal Affect, Normal Mood Assessment and Plan - Assessment and Plan (Free Text) Assessment: 72 yo F with PMHx HTN, DM2, CAD s/p 2 stents(2016, 2014), HLD, CHERRY, seizure disorder, positional vertigo, iron deficiency anemia, admitted for asymptomatic anemia, Hgb: 5.9 after iron infusion. 2 units of pRBCs were given and patient H&H have been stable. EGD planned for this AM. Plan: Acute on Chronic Fe Deficiency anemia --FOBT negative in ED --s/p 2 units of pRBC; H&H stable --F/u EGD (07/16) -Heme/Onc (Dr. Brock) recs appreciated --GI (Dr. 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 Cuellar) appreciate recommendations Trileptal- continue to taper down. 300 mg bid pm 07/16/2018, 150 mg bid 07/17/2018, then discontinue --continue monitoring AM labs Dizziness--resolved --likely secondary to anemia; Resolved with repletion through pRBCs --PT/OT- Home with services --c/w home Meclizine Hx of CAD s/p 2x stent placement --Continue asprin --Discontinue plavix per cardio (Dr. Kerr) -Almost a year since last PTCA HTN --Consider increasing dose if elevated blood pressures persist --Lisinopril 10 mg po daily --Atenolol 50mg po daily Seizure disorder --Neuro (Dr. Oliveira) recs appreciated -Keppra 1000 BID -Tapering off Trileptal due to SIADH and hyponatremia Hx of DM --Levemir 10 units HS --low ISS --Accuchecks --Gabapentin 300mg po bid PPX, Diet, Disposition --Protonix 40 IVP BID --SCDs; due to bleed, hold dual anti-platelet therapy due to bleeding risk --Dispo: Pt to be discharged home pending EGD results/GI clearance Case discussed with Dr. Brigitte Geller DO, PGY-1
--- NOTE | 2018-07-16 16:36 | CP.PCM.PN ---
Subjective - Date & Time of Evaluation Date of Evaluation: 07/16/18 Time of Evaluation: 13:00 - Subjective Subjective: 72 y/o female PMHx HTN, DM2, CAD s/p 2 stents(2016, 2014), HLD, seizure disorder, positional vertigo, iron deficiency anemia, and hyponatremia, admitted for asymptomatic anemia; nephrology following for hyponatremia; Patient awaiting endoscopy today; otherwise without complaints; Objective - Vital Signs/Intake and Output Vital Signs (last 24 hours): Temp Pulse Resp BP Pulse Ox 98.3 F 65 20 176/70 H 100 07/16/18 15:34 07/16/18 15:34 07/16/18 15:34 07/16/18 15:34 07/16/18 16:20 - Medications Medications: Current Medications Acetaminophen (Tylenol 325mg Tab) 650 mg PO Q6H PRN PRN Reason: Headache Last Admin: 07/14/18 06:40 Dose: 650 mg Aspirin (Ecotrin) 81 mg PO DAILY [facility] Last Admin: 07/16/18 10:00 Dose: Not Given Atenolol (Tenormin) 50 mg PO DAILY [facility] Last Admin: 07/16/18 10:04 Dose: 50 mg Docusate Sodium (Colace) 100 mg PO BID [facility] Last Admin: 07/16/18 09:59 Dose: Not Given Gabapentin (Neurontin) 300 mg PO BID [facility]; Protocol Last Admin: 07/16/18 10:00 Dose: Not Given Dextrose/Sodium Chloride (Dextrose 5%/0.9% Ns 1000 Ml) 1,000 mls @ 20 mls/hr IV .Q24H [facility] Insulin Detemir (Levemir) 10 unit SC HS [facility] Last Admin: 07/15/18 21:42 Dose: 10 unit Insulin Human Regular (Humulin R Low) 0 units SC ACHS [facility]; Protocol Last Admin: 07/16/18 12:00 Dose: Not Given Levetiracetam (Keppra) 1,000 mg PO Q12 [facility] Last Admin: 07/16/18 10:04 Dose: 1,000 mg Lisinopril (Zestril) 10 mg PO DAILY [facility] Last Admin: 07/15/18 09:43 Dose: 10 mg Lorazepam (Ativan) 2 mg IVP Q6H PRN; Protocol PRN Reason: Anxiety Meclizine HCl (Antivert) 25 mg PO Q8H PRN PRN Reason: Dizziness Oxcarbazepine (Trileptal) 300 mg PO BID [facility] Pantoprazole Sodium (Protonix Inj) 40 mg IVP Q12 [facility] Last Admin: 07/16/18 10:04 Dose: 40 mg Polyethylene Glycol (Miralax) 17 gm PO BID [facility] Last Admin: 07/16/18 10:00 Dose: Not Given - Labs Labs: 07/15/18 05:00 07/15/18 11:00 PT 12.0 SECONDS (9.4-12.5) 07/11/18 17:05 INR 1.05 07/11/18 17:05 APTT 36.6 Seconds (25.1-36.5) H 07/11/18 17:05 - Constitutional Appears: Well, Non-toxic, No Acute Distress - Eye Exam Eye Exam: Normal appearance - Respiratory Exam Respiratory Exam: Clear to Ausculation Bilateral. absent: Respiratory Distress - Cardiovascular Exam Cardiovascular Exam: RRR, +S1, +S2 - GI/Abdominal Exam GI & Abdominal Exam: Soft. absent: Distended, Tenderness - Extremities Exam Additional comments: minimal lower leg edema; - Neurological Exam Neurological Exam: Alert, Awake - Psychiatric Exam Psychiatric exam: Normal Affect, Normal Mood. absent: Agitated - Skin Skin Exam: Warm. absent: Cyanosis Assessment and Plan (1) Hyponatremia Assessment & Plan: Acute on chronic; thought to be SIADH/increased ADH potentiation due to being on trileptal; hyponatremia corrected too rapidly after single tolvaptan dose 2 days ago; given desmopressin and hypotonic IVF yesterday to partially reverse cor rection and lower serum Na; repeat serum Na acceptable; Trileptal being tapered off, will need to see if this alone will help correct hyponatremia; will discuss with outpatient PMD on d/c; -For now, should adhere to 1.5L daily PO fluid restriction; -Avoid even giving isotonic IVF due to "desalination" effect with high urine osm; Status: Acute (2) HTN (hypertension) Assessment & Plan: BP elevated during this admission at times although had been well controlled as outpatient on current regimen; recommend to keep same meds, can f/u as outpatient; Status: Acute
--- NOTE | 2018-07-16 16:46 | CP.PCM.DIS ---
Provider - Provider Date of Admission: 07/11/18 18:37 Attending physician: Chris Monzon MD Primary care physician: Leroy Burroughs MD Time Spent in preparation of Discharge (in minutes): 40 Hospital Course - Lab Results Lab Results: Micro Results 07/11/18 18:21 Urine Urine Culture - Final No Growth (<1,000 CFU/ML) Most Recent Lab Values WBC 11.4 10^3/ul (4.5-11.0) H D 07/15/18 05:00 RBC 3.60 10^6/uL (3.5-6.1) 07/15/18 05:00 Hgb 9.2 g/dL (12.0-16.0) L 07/15/18 05:00 Hct 29.3 % (36.0-48.0) L 07/15/18 05:00 MCV 81.4 fl (80.0-105.0) 07/15/18 05:00 MCH 25.6 pg (25.0-35.0) 07/15/18 05:00 MCHC 31.4 g/dl (31.0-37.0) 07/15/18 05:00 RDW 20.8 % (11.5-14.5) H 07/15/18 05:00 Plt Count 427 10^3/uL (120.0-450.0) 07/15/18 05:00 MPV 8.1 fl (7.0-11.0) 07/15/18 05:00 Gran % 66.7 % (50.0-68.0) 07/15/18 05:00 Lymph % (Auto) 19.4 % (22.0-35.0) L 07/15/18 05:00 Iron % (Auto) 10.8 % (1.0-6.0) H 07/15/18 05:00 Eos % (Auto) 2.9 % (1.5-5.0) 07/15/18 05:00 Baso % (Auto) 0.2 % (0.0-3.0) 07/15/18 05:00 Gran # 7.62 (1.4-6.5) H 07/15/18 05:00 Lymph # (Auto) 2.2 (1.2-3.4) 07/15/18 05:00 Iron # (Auto) 1.2 (0.1-0.6) H 07/15/18 05:00 Eos # (Auto) 0.3 (0.0-0.7) 07/15/18 05:00 Baso # (Auto) 0.02 K/mm3 (0.0-2.0) 07/15/18 05:00 Retic Count 3.35 % (0.5-1.5) H 07/11/18 21:00 PT 12.0 SECONDS (9.4-12.5) 07/11/18 17:05 INR 1.05 07/11/18 17:05 APTT 36.6 Seconds (25.1-36.5) H 07/11/18 17:05 Sodium 132 mmol/L (132-148) 07/15/18 11:00 Potassium 4.0 mmol/L (3.6-5.0) 07/15/18 11:00 Chloride 97 mmol/L (98-107) L 07/15/18 11:00 Carbon Dioxide 28 mmol/L (21-33) 07/15/18 11:00 Anion Gap 11 (10-20) 07/15/18 11:00 BUN 11 mg/dL (7-21) 07/15/18 11:00 Creatinine 0.6 mg/dl (0.7-1.2) L 07/15/18 11:00 Est GFR ( Amer) > 60 07/15/18 11:00 Est GFR (Non-Af Amer) > 60 07/15/18 11:00 POC Glucose (mg/dL) 145 mg/dL (65-110) H 07/16/18 11:13 Random Glucose 222 mg/dL (70-110) H 07/15/18 11:00 Hemoglobin A1c 6.0 % (4.2-6.5) 07/12/18 05:30 Serum Osmolality 273 mosm/kg (272-300) 07/11/18 21:15 Calcium 9.0 mg/dL (8.4-10.5) 07/15/18 11:00 Phosphorus 3.8 mg/dL (2.5-4.5) 07/12/18 05:30 Magnesium 1.9 mg/dL (1.7-2.2) 07/12/18 05:30 Iron 47 ug/dL (45-180) 07/13/18 06:30 TIBC 321 ug/dL (265-497) 07/13/18 06:30 % Saturation 15 % (20-55) L 07/13/18 06:30 Ferritin 100.0 ng/mL 07/13/18 06:30 Total Bilirubin 0.3 mg/dL (0.2-1.3) 07/15/18 05:00 AST 30 U/L (14-36) 07/15/18 05:00 ALT 19 U/L (7-56) 07/15/18 05:00 Alkaline Phosphatase 106 U/L (38-126) 07/15/18 05:00 Lactate Dehydrogenase 364 U/L (333-699) 07/11/18 17:05 Total Creatine Kinase < 20 U/L (35-230) L 07/11/18 17:05 Troponin I < 0.01 ng/mL 07/11/18 17:05 Total Protein 7.2 g/dL (5.8-8.3) 07/15/18 05:00 Albumin 3.5 g/dL (3.0-4.8) 07/15/18 05:00 Globulin 3.7 gm/dL 07/15/18 05:00 Albumin/Globulin Ratio 1.0 (1.1-1.8) L 07/15/18 05:00 Vitamin B12 608 pg/mL (239-931) 07/13/18 06:30 Folate 15.1 ng/mL 07/13/18 06:30 Urine Color Yellow (YELLOW) 07/11/18 18:21 Urine Appearance Clear (CLEAR) 07/11/18 18:21 Urine pH 7.0 (4.7-8.0) 07/11/18 18:21 Ur Specific [place] 1.020 (1.005-1.035) 07/11/18 18:21 Urine Protein Trace mg/dL (<30 mg/dL) H 07/11/18 18:21 Urine Glucose (UA) Negative mg/dL (NEGATIVE) 07/11/18 18:21 Urine Ketones Negative mg/dL (NEGATIVE) 07/11/18 18:21 Urine Blood Negative (NEGATIVE) 07/11/18 18:21 Urine Nitrate Negative (NEGATIVE) 07/11/18 18:21 Urine Bilirubin Negative (NEGATIVE) 07/11/18 18:21 Urine Urobilinogen 0.2 E.U./dL (<1 E.U./dL) 07/11/18 18:21 Ur Leukocyte Esterase Negative [place]ia/uL (NEGATIVE) 07/11/18 18:21 Urine RBC 0 - 2 /hpf (0-2) 18 18:21 Urine WBC 0 - 2 /hpf (0-6) 07/11/18 18:21 Ur Epithelial Cells 6 - 8 /hpf (0-5) 07/11/18 18:21 Urine Bacteria Small (NEG) 07/11/18 18:21 Urine Osmolality 613 mosm/kg (300-1000) 07/13/18 18:59 Ur Random Sodium 107 meq/L 07/13/18 18:59 Parvovirus Source Whole blood 07/12/18 05:00 Parvovirus B19 DNA PCR Not detected 07/12/18 05:00 Blood Type O POSITIVE 07/11/18 17:05 Antibody Screen Negative 07/11/18 17:05 Crossmatch See Detail 07/11/18 17:05 BBK History Checked Patient has bt 07/11/18 17:05 - Hospital Course Hospital Course: HPI Ms. Antonio is a 72 year old female with past medical history of hypertension, DM2, CAD s/p 2 stents (2016, 2014), HLD, Iron Deficient Anemia on iron infusions, seizure disorder, positional vertigo, iron deficiency anemia, admitted for asymptomatic anemia. Patient was being seen in Dr. Arizmendi office for her iron infusion, after which she was found to have low H&H, and told to present to the ED. She notes that she was diagnosed with anemia 02/12/2018, but her levels have never been as low as today. Patient has never had blood transfusion in the past. She states that she resumed iron infusions one day ago, having stopped for 1.5 months secondary to feeling unwell. She denies CP, dizziness, N/V/D, dark stools, hematuria, dysuria, fever, chills, cough, congestion. Patient states that she feels well, with no acute complaints. In addition, patient notes that over the past 2 months she has had an increased frequency in dizzy spells, having 1-2 episodes per week. She has had episodes of falls secondary to dizziness, but denies LOC or trauma. Last episode was 1 week ago without fall. She was admitted for dizzy spells 03/13/[address] head and CXR were obtained, both resulted WNL.Symptoms resolved with meclizine. Neurology evaluated pt, and felt symptoms likely secondary to positional vertigo exacerbated by hyponatremia and peripheral neuropathy. She was also found to have microcytic anemia, and was told to f/u with Dr. Brock and Dr. Isaac as scheduled for further evaluation. She was discharged with Meclizine, and recommended to continue outpatient PT. Patient states that she was not able to f/u with PT. She was seen by Dr. Isaac for EGD(06/07) and colonoscopy(06/11). Colonoscopy resulted sigmoid polyp and tubular adenoma. EGD resulted mild chronic gastritis, gastric fundic polyps, mildly inflamed esophagogastric junction type mucosa with intestinal metaplasia. No further work-up was performed. Hospital Course Patient was admitted for severe anemia with a hemoglobin of 5.9 on admission. She was given 2 units of PRBCs, with appropriate response of hemoglobin to 9.7. Patient had EGD done in the hospital, which showed no acute findings. Patient is medically clear from a GI perspective, given no active source of bleed and hemodynamic stability. Of note, patient was also found to have hyponatremia with a Na of 123. Ne phrology and Neurology were consulted and it was determined that the hyponatremia was likely secondary to SIADH from Trileptal. Pt is being weaned off the Trileptal and her Keppra was increased from 1000 QD to 1000 BID. Patient is medically cleared by both Nephrology and Neurology, with outpatient follow- up. Cardiology was consulted for the care of this patient due to her history of CAD status post stent placement. She was taken off her home Plavix due to her anemia and possible GI bleed. Patient is instructed to continue Aspirin at home. She is medically cleared from a Cardiology perspective. Patient is medically stable for discharge, per Dr. Briggs. Patient is instructed to follow up with her PMD (Dr. Burroughs) within 3-5 days of being discharged. Patient should also follow up with GI as an outpatient for possible push endoscopy, per recommendations. Patient instructed to follow up with neurologist (Dr. Kirby) within 1 week of discharge for continued care of seizure disorder. Patient was instructed to return to the ED if symptoms recur or worsen, or if she experiences syncope, lightheadedness, dizziness, fever, chills, or notices blood in stool or urine. Please continue all home medications as described in discharge instructions. Pt understands the plan as above and agrees. The following is a summary of hospital course. For full detail, please refer to patient EMR. - Date & Time of H&P Date of H&P: 07/16/18 Time of H&P: 16:32 Discharge Exam - Head Exam Head Exam: ATRAUMATIC, NORMAL INSPECTION, NORMOCEPHALIC - Eye Exam Eye Exam: EOMI, Normal appearance Pupil Exam: NORMAL ACCOMODATION - ENT Exam ENT Exam: Mucous Membranes Moist, Normal Exam - Neck Exam Neck exam: Full Rom, Normal Inspection - Respiratory Exam Respiratory Exam: Clear to PA & Lateral, NORMAL BREATHING PATTERN, UNREMARKABLE. absent: Rales, Rhonchi, Wheezes, Respiratory Distress - Cardiovascular Exam Cardiovascular Exam: REGULAR RHYTHM, +S1, +S2 - GI/Abdominal Exam GI & Abdominal Exam: Normal Bowel Sounds, Soft, Unremarkable. absent: Distended, Firm, Guarding, Rebound, Rigid, Tenderness - Extremities Exam Extremities exam: full ROM, normal capillary refill, normal inspection, pedal pulses present - Back Exam Back exam: NORMAL INSPECTION - Neurological Exam Neurological exam: Alert, CN II-XII Intact, Oriented x3, Reflexes Normal - Psychiatric Exam Psychiatric exam: Normal Affect, Normal Mood - Skin Skin Exam: Dry, Intact, Normal Color, Warm Discharge Plan - Follow Up Plan Condition: FAIR Disposition: HOME/ ROUTINE Referrals: Leory Burroughs MD [Primary Care Provider] -
[2018-07-16] MEDS ORDERED: Sodium Chloride 0.9% 1,000 ML IV SCH (17:00)
[2018-07-16 17:04] VITALS: RESP 13; TEMP 97.8; O2SAT 98
--- NOTE | 2018-07-16 19:19 | PN ---
DATE: 07/16/2018 SUBJECTIVE: Followup cardiac evaluation, admitted with a history of coronary artery disease. This note is in addition to dictated by nurse practitioner. The patient denies any chest pain, shortness of breath or any palpitation. The patient was admitted with low hemoglobin and hematocrit, and getting IV infusion of packed RBC transfusion. For endoscopy today and EGD today. Cardiac status is stable. We will follow with you. History of PTCA 2013 and 2016. In view of low H and H, aspirin and Plavix are on hold. Further recommendation after endoscopy, we will follow with you. Thank you in taking care of my patient, Brenda Wilson. The patient had a low sodium, now improving. We will follow the labs tomorrow. Chris Luque MD [email or web address]
[2018-07-16 20:11] VITALS: BP 163/72; PULSE 60
--- NOTE | 2018-07-16 22:03 | CP.PCM.PN ---
Subjective - Date & Time of Evaluation Date of Evaluation: 07/16/18 Time of Evaluation: 21:55 - Subjective Subjective: [place] PGY2 - Progress Note Upon discharge a second opinion regarding seizure medication regiment was requested by the patient and her daughter. Dr. Kirby was contacted with the following recommendations for restarting patient's home trileptal of 600mg BID. The patient's hyponatremia is to be explained by dilutional effect rather than medication side effect. Patient is note to have been on medication for 20+ years without event. Patient is to continue original home dose and to follow up with Dr. Kirby on an outpatient basis. By request of Dr. Kirby patient was instructed to take 900mg Trileptal prior to discharge for a total daily dose of 1200mg. Objective - Vital Signs/Intake and Output Vital Signs (last 24 hours): Temp Pulse Resp BP Pulse Ox 97.8 F 60 13 163/72 H 98 07/16/18 17:23 07/16/18 20:04 07/16/18 17:23 07/16/18 20:04 07/16/18 17:23 - Medications Medications: Current Medications Acetaminophen (Tylenol 325mg Tab) 650 mg PO Q6H PRN PRN Reason: Headache Last Admin: 07/14/18 06:40 Dose: 650 mg Aspirin (Ecotrin) 81 mg PO DAILY [facility] Last Admin: 07/16/18 10:00 Dose: Not Given Atenolol (Tenormin) 50 mg PO DAILY [facility] Last Admin: 07/16/18 10:04 Dose: 50 mg Docusate Sodium (Colace) 100 mg PO BID [facility] Last Admin: 07/16/18 18:30 Dose: 100 mg Gabapentin (Neurontin) 300 mg PO BID [facility]; Protocol Last Admin: 07/16/18 18:41 Dose: Not Given Insulin Detemir (Levemir) 10 unit SC HS [facility] Last Admin: 07/15/18 21:42 Dose: 10 unit Insulin Human Regular (Humulin R Low) 0 units SC ACHS [facility]; Protocol Last Admin: 07/16/18 18:15 Dose: Not Given Levetiracetam (Keppra) 1,000 mg PO Q12 [facility] Last Admin: 07/16/18 21:44 Dose: 1,000 mg Lisinopril (Zestril) 10 mg PO DAILY [facility] Last Admin: 07/16/18 20:04 Dose: 10 mg Lorazepam (Ativan) 2 mg IVP Q6H PRN; Protocol PRN Reason: Anxiety Meclizine HCl (Antivert) 25 mg PO Q8H PRN PRN Reason: Dizziness Oxcarbazepine (Trileptal) 300 mg PO BID [facility] Last Admin: 07/16/18 18:41 Dose: 300 mg Pantoprazole Sodium (Protonix Inj) 40 mg IVP Q12 [facility] Last Admin: 07/16/18 10:04 Dose: 40 mg Polyethylene Glycol (Miralax) 17 gm PO BID [facility] Last Admin: 07/16/18 18:31 Dose: 17 gm - Labs Labs: 07/15/18 05:00 07/15/18 11:00 PT 12.0 SECONDS (9.4-12.5) 07/11/18 17:05 INR 1.05 07/11/18 17:05 APTT 36.6 Seconds (25.1-36.5) H 07/11/18 17:05
== END 2018-07-16 22:58 | disposition home or self-care (01) | DRG 812 ==
LOC: ED 16:26 → ERH 18:37 → 2RNO 22:13 → 5RNO 07-13 16:42
PROVIDERS: ADMIT Internal Medicine; ATTEND Internal Medicine
PROC: 30233N1 Transfusion of Nonautologous Red Blood Cells into Peripheral Vein, Percutaneous Approach (ICD-10-PCS; 2018-07-11)
PROC: 0DJ08ZZ Inspection of Upper Intestinal Tract, Via Natural or Artificial Opening Endoscopic (ICD-10-PCS; principal; 2018-07-16 13:30)
DX: D50.9 Iron deficiency anemia, unspecified (principal); E22.2 Syndrome of inappropriate secretion of antidiuretic hormone; I25.10 Atherosclerotic heart disease of native coronary artery without angina pectoris; I10 Essential (primary) hypertension; G40.909 Epilepsy, unspecified, not intractable, without status epilepticus; E11.9 Type 2 diabetes mellitus without complications; K22.70 Barrett's esophagus without dysplasia; R42 Dizziness and giddiness; G62.9 Polyneuropathy, unspecified; K29.50 Unspecified chronic gastritis without bleeding; K57.90 Diverticulosis of intestine, part unspecified, without perforation or abscess without bleeding; T42.1X5A Adverse effect of iminostilbenes, initial encounter; K31.7 Polyp of stomach and duodenum; K55.20 Angiodysplasia of colon without hemorrhage; D12.5 Benign neoplasm of sigmoid colon; E78.5 Hyperlipidemia, unspecified; K21.9 Gastro-esophageal reflux disease without esophagitis; K64.8 Other hemorrhoids; Z79.4 Long term (current) use of insulin; Z79.82 Long term (current) use of aspirin; Z79.899 Other long term (current) drug therapy; Z90.710 Acquired absence of both cervix and uterus; Z91.81 History of falling